=== PATIENT | female | born 1980 | race Caucasian/White ===

== ENCOUNTER 2022-10-12 07:41 | Outpatient (OUT) | payer BC, SELFPAY ==
[2022-10-12 07:52] LABS: Basophils Percent Auto 0.3 % (0.2-2.0); Eosinophils Absolute Auto 0.3 10^3/uL (0.0-0.7); Eosinophils Percent Auto 2.3 % (0.9-7.0); Hematocrit 41.9 % (36.0-48.0); Immature Granulocytes Abs Auto 0.03 10^3/uL (0.00-0.03); Immature Granulocytes Pct Auto 0.3 % (0.0-0.5); Lymphocytes Absolute Auto 3.9 10^3/uL (1.2-3.8); Lymphocytes Percent Auto 34.8 % (20.5-60.0); Mean Corpuscular HGB Conc 33.4 g/dL (29.9-35.2); Mean Corpuscular Hemoglobin 31.5 pg (26.7-34.0); Mean Corpuscular Volume 94.4 fL (81.0-99.0); Monocytes Absolute Auto 0.6 10^3/uL (0.3-0.8); Monocytes Percent Auto 5.2 % (1.7-12.0); Neutrophils Absolute Auto 6.4 10^3/uL (1.4-6.5); Neutrophils Percent Auto 57.1 % (43.0-75.0); Platelet Count 270 10^3/uL (150-450); Red Blood Count 4.44 10^6/uL (4.20-5.40); Red Cell Distribution Width 14.6 % (11.0-15.0); White Blood Count 11.2 10^3/uL (4.0-11.0)
[2022-10-12 09:29] LABS: Alanine Aminotransferase 21 U/L (14-59); Albumin Globulin Ratio 1.1; Albumin Level 3.4 g/dL (3.4-5.0); Alkaline Phosphatase 117 U/L (46-116); Anion Gap 11.1; Aspartate Amino Transferase 15 U/L (15-37); BUN Creatinine Ratio 5.2; Bilirubin Total 0.4 mg/dL (0.2-1.0); Calcium 8.5 mg/dL (8.5-10.1); Chloride 107 mmol/L (98-107); Chol HDL Ratio 3.3; Cholesterol 117 mg/dL (<=200); Estimated GFR (African America >60 (>=60); Estimated GFR (Non-African Ame 51 (>=60); Globulin 3.1 g/dL; Glucose 97 mg/dL (74-106); HDL Cholesterol 36 mg/dL (40-60); Potassium 4.1 mmol/L (3.5-5.1); Sodium 144 mmol/L (136-145); Thyroid Stimulating Hormone 4.068 uIU/mL (0.358-3.740); Total Protein 6.5 g/dL (6.4-8.2); Triglycerides 120 mg/dL (<=150)
== END 2022-10-12 07:42 | disposition home or self-care (01) ==
LOC: LAB 07:42
PROVIDERS: PCP Family Medicine; Visit Provider Family Medicine
DX: I10 Essential (primary) hypertension (principal); E78.5 Hyperlipidemia, unspecified; L65.9 Nonscarring hair loss, unspecified
CPT/HCPCS: 36415; 80053; 80061; 84443; 85025

== ENCOUNTER 2023-01-10 12:55 | Outpatient (OUT) | payer BC, SELFPAY ==
[2023-01-10 13:47] LABS: Thyroid Stimulating Hormone 0.156 uIU/mL (0.358-3.740)
== END 2023-01-10 12:56 | disposition home or self-care (01) ==
LOC: LAB 12:55
PROVIDERS: PCP Family Medicine; Visit Provider Family Medicine
DX: R79.89 Other specified abnormal findings of blood chemistry (principal)
CPT/HCPCS: 36415; 84443

== ENCOUNTER 2023-12-18 09:33 | Outpatient (OUT) | payer BC, SELFPAY ==
--- OUTSIDE RECORDS SUMMARY | 2023-12-17 15:27 | XMS_ITS | CCD ---
Author Organization [facility] Care Team Providers Care Bleaching Machine Operator Name Role Phone MD Mercedes Ashby Primary Care Provider [phone] MD Krishan Rdz Attending Provider JUDY Gordon Attending Provider Mercedes Ashby Unavailable Gloria Gordon Unavailable SYMONE, DR MERCEDES Reilly Admitting Unavailable ASHBY, DR MERCEDES Reilly Primary Care Unavailable ASHBY, DR MERCEDES Reilly Attending Unavailable ONLY, DR SHREYA Blanton Consulting Unavailable SYMONE, DR MERCEDES Reilly Admitting Unavailable ASHBY, DR MERCEDES Reilly Primary Care Unavailable ASHBY, DR MERCEDES Reilly Attending Unavailable ASHBY, DR MERCEDES Reilly Consulting Unavailable Krishan Rdz Unavailable John Araya Unavailable MD Mercedes Ashby Primary Care Provider MD Krishan Rdz Attending Provider [phone] MD Krishan Rdz Admit Provider [phone] MD Mercedes Ashby Primary Care Provider MD Krishan Rdz Attending Provider [phone] Krishan Rdz Admitting UnavailMercedes Levi Primary Care Unavailable Krishan Rdz Attending Unavailabl Krishan Fuller Attending UnavailMercedes Levi Primary Care Unavailable Krishan Rdz Admitting Unavailabl Krishan Fuller Attending UnavailMercedes Levi Primary Care Unavailable Krishan Rdz Admitting Unavailabl Krishan Fuller Attending UnavailMercedes Levi Primary Care Unavailable Krishan Rdz Admitting Unavailabl e LANCE LAGUERRE Attending Unavailable GLORIA GORDON Referring Unavailable JASE ROSARIO Attending Unavailable LANCE LAGUERRE Attending Unavailable Allergies Allergy Classification Reported Allergen(s) Allergy Type Date of Onset Reaction(s) Facility (20 sources) Ketorolac; Translations: [ketorolac] Drug Allergy 03-08-19 16 Itching, Unknown [facility] (14 sources) Penicillins; Translations: [Penicillins] Allergy to substance 07-09-19 13 Difficulty Breathing [facility] (20 sources) traMADol; Translations: [tramadol] Drug Allergy 07-09-19 13 Itching, Unknown [facility] (12 sources) NSAIDS (Non-Steroidal Anti-Inflamma; Translations: [NSAIDS (Non-Steroidal Anti-Inflamma] Allergy to substance 08-23-19 18 Itching [facility] (20 sources) NSAIDs Drug allergy Unknown [email or web address] Other (20 sources) Penicillin G Benzathine; Translations: [penicillin G benzathine] Drug allergy 06-06-19 24 Unknown, Agitated [facility] (20 sources) TORDOL Drug allergy 06-05-19 24 Unknown, [facility] (18 sources) Acetaminophen / traMADol Drug Allergy 03-08-19 16 Unknown [facility] (7 sources) Codeine Drug Allergy 05-23-19 16 Hives [facility] Rep[facility] (2 sources) NSAIDs Drug allergy (disorder) 07-09-19 13 [facility] (2 sources) traMADol Drug Allergy 07-09-19 13 [facility] (1 source) Tromethamine Drug Allergy 07-09-19 13 [facility] (3 sources) Iodine / Sodium Iodide Drug Allergy Unknown [email or web address] Other (16 sources) Penicillin G Drug Allergy 03-08-19 16 Comment:Sherrie verdugo [email or web address] Other (20 sources) Penicillin V Drug Allergy 06-13-19 07 Unknown, [facility] (17 sources) Toradol *ANALGESICS - ANTI-INFLAMMATORY * Propensity to adverse reactions 06-13-19 07 Unknown [email or web address] Other (17 sources) Diclofenac & Diet Manage Prod *ANALGESICS - ANTI-I Propensity to adverse reactions 03-08-19 16 Comment:NSAIDS [email or web address] Other (17 sources) Tylenol with Codeine #3 *ANALGESICS - OPIOID* Propensity to adverse reactions 06-13-19 07 Comment:Tyleno l w/Codeine [facility] [employer] Other (17 sources) Ultram *ANALGESICS - OPIOID* Propensity to adverse reactions 03-08-19 16 Unknown [email or web address] Other (18 sources) Ultracet *ANALGESICS - OPIOID* Propensity to adverse reactions 06-13-19 Unknown, [facility] (20 sources) Iodine; Translations: [iodine] Drug Allergy 06-06-19 Unknown, [facility] (1 source) Ketorolac Drug Allergy Unknown [facility] [employer] Other (1 source) Penicillin G Potassium Drug allergy 03-08-19 16 Comment:Penici llin [facility] [employer] Other (1 source) Penicillin V Potassium Drug allergy 06-13-19 07 Unknown [email or web address] Other (1 source) traMADol Drug Allergy Unknown [email or web address] Other (5 sources) Diclofenac & Diet Manage Prod Allergy to substance 01-11-20 Comment:NSAIDS [facility] (5 sources) Toradol *ANALGESICS - ANTI-INF Allergy to substance 06-05-19 24 [facility] (5 sources) Tylenol with Codeine #3 *ANALG Allergy to substance 01-11-20 Comment:Tyleno l w/Codeine [facility] (8 sources) Shrimp product; Translations: [shrimp] Allergy to substance 06-27-19 nausea, Vomiting [facility] (6 sources) Acetaminophen; Translations: [acetaminophen] Drug Allergy 07-08-19 24 [facility] (1 source) Codeine Drug Allergy 10-03-19 [facility] (1 source) Penicillin Drug Allergy 10-03-19 [facility] Medications Current Medications Medication Drug Class(es) Dates Sig (Normalized) Sig (Original) cloNIDine (20 sources) Central alpha-2 Adrenergic Agonist Start: 04-22-2023 take 1 tablet by mouth once daily at bedtime Clonidine Hcl Active 0 .ROUTE .COMPLEX April 22, 2023 1:19pm TAKE 1 TABLET BY MOUTH EVERYDAY AT BEDTIME Start: 08-22-2017 End: 04-22-2023 take 0.1 mg by mouth once daily at bedtime Clonidine Hcl Discontinued 0.1 MG PO Daily at bedtime August 22, 2017 12:00am April 22, 2023 1:19pm clopidogrel 75 mg oral tablet (20 sources) [id number] Platelet Inhibitor Start: 08-22-2017 take 75 mg by mouth once daily Clopidogrel Active 75 MG PO Daily August 22, 2017 12:00am levothyroxine sodium 0.05 mg oral tablet (20 sources) l-Thyroxine Start: 05-30-2023 End: 08-06-2023 take 1 tablet by mouth in the morning Levothyroxine Active 0 .ROUTE .COMPLEX August 06, 2023 3:42pm TAKE 1 TABLET BY MOUTH IN THE MORNING ON AN EMPTY STOMACH Start: 05-30-2023 End: 05-30-2023 take 50 ug by mouth once daily Levothyroxine Discontin ued 50 MCG PO Daily May 30, 2023 1:02pm May 30, 2023 9:50pm take 1 tablet by phoebe th once daily in the morning Levothyroxine Sodium 50 MCG take 1 tablet by mouth every morning ON AN EMPTY STOMACH for 90 days Active take 1 tablet by phoebe th once daily in the morning Levothyroxine Sodium 50 MCG take 1 tablet by mouth every morning ON AN EMPTY STOMACH for 90 days Active take 1 tablet by phoebe th once daily in the morning Levothyroxine Sodium 75 MCG take 1 tablet by mouth every morning ON AN EMPTY STOMACH for 30 Active lisinopril 20 mg oral tablet (20 sources) Angiotensin Converting Enzyme Inhibitor Start: 07-05-2023 End: 10-02-2023 take 1 tablet by mouth once daily Lisinopril Active 0 .ROUTE .COMPLEX October 02, 2023 8:06am TAKE 1 TABLET BY MOUTH EVERY DAY Start: 08-22-2017 End: 07-05-2023 take 20 mg by mouth once daily Lisinopril Discontinued 20 MG PO Daily August 22, 2017 12:00am July 05, 2023 10:36am 24 hr metoprolol succinate 25 mg extended release oral tablet (20 sources) beta-Adrenergic Braulio Start: 09-10-2023 take 25 mg by mouth once daily Metoprolol Succinate Active 25 MG PO Daily September 10, 2023 12:00am Start: 08-22-2017 End: 09-10-2023 take 50 mg by mouth once daily Metoprolol Tartrate Dis continued 50 MG PO Daily August 22, 2017 12:00am September 10, 2023 9:12am Start: 08-22-2017 take 50 mg by mouth twice ronny y Metoprolol Tartrate Active 50 MG PO Twice daily August 22, 2017 12:00am take 1 tablet by phoebe th once daily Metoprolol Succinate ER 25 MG TAKE 1 TABLET BY MOUTH EVERY DAY for 90 Active 24 hr nicotine 0.875 mg/hr transdermal system (20 sources) Cholinergic Nicotinic Agonist Start: 09-11-2023 apply 1 dose transdermal route once daily Nicotine Active 1 PATCH TRANSDERML Daily September 11, 2023 10:38am Start: 09-02-2023 End: 09-11-2023 apply 1 dose transdermal route once daily Nicotine Discontinued 1 PATCH TRANSDERML Daily September 02, 2023 9:32am September 11, 2023 10:38am Start: 08-06-2023 End: 09-02-2023 apply 1 dose transdermal route once daily, then apply 1 dose transdermal route every twenty-four hours Nicotine (Nicoderm Cq) 21 mg/24 hr patch 24 hour Discontinued 1 PATCH TRANSDERML Daily August 06, 2023 8:41am September 02, 2023 9:33am Start: 06-25-2023 End: 07-16-2023 apply 1 dose transdermal route once daily, then apply 1 dose transdermal route every twenty-four hours Nicotine (Nicoderm Cq) 21 mg/24 hr patch 24 hour Discontinued 1 PATCH TRANSDERML Daily June 25, 2023 12:00am July 16, 2023 9:14am Start: 06-25-2023 End: 08-05-2023 Nicotine (Polacrilex) Discon tinued 4 MG BUCCAL Every 2 hours July 04, 2023 11:33am July 16, 2023 9:14am Start: 10-09-2022 apply 1 dose transde rmal route once daily Nicoderm CQ 14 MG/24HR 1 patch to skin Transdermal Once a day for 30 day(s) Oct, Active oxyCODONE hydrochloride 5 mg oral tablet (10 sources) Opioid Agonist Start: 08-22-2023 End: 09-19-2023 take 5 mg by mouth every eight hours Oxycodone Active 5 MG PO Every 8 hours 90 September 19, 2023 Start: 07-10-2023 End: 08-02-2023 Oxycodone Discontinued 10 MG PO every 6 to 8 hours 15 July 10, 2023 August 02, 2023 2:39pm QUEtiapine 200 mg oral tablet (20 sources) Atypical Antipsychotic Start: 02-16-2013 take 200 mg by mouth once daily at bedtime Quetiapine Active 200 MG PO Daily at bedtime August 22, 2017 12:00am rivaroxaban 20 mg oral tablet (8 sources) Factor Xa Inhibitor Start: 08-01-2023 take 1 tablet by mouth once daily at dinner Rivaroxaban (Xarelto) 20 mg tablet Active 20 MG PO Daily August 01, 2023 12:00am must administer with evening meal Start: 07-10-2023 End: 09-10-2023 take 1 tablet by mouth twice daily at mealtime Rivaroxaban (Xarelto Dvt-Pe Treat 30d Start) 15 mg (42)- 20 mg (9) tablets,dose pack Discontinued 0 PO .COMPLEX July 10, 2023 12:00am September 10, 2023 9:10am take one-15 mg tablet twice daily for 21 days, then one-20 mg tablet once daily; must take with meal/food simvastatin 40 mg oral tablet (20 sources) HMG-CoA Reductase Inhibitor Start: 08-14-2023 take 1 tablet by mouth once daily Simvastatin Active 0 .ROUTE .COMPLEX August 14, 2023 1:01pm TAKE 1 TABLET BY MOUTH EVERY DAY Start: 06-27-2023 End: 08-14-2023 take 40 mg by mouth once daily Simvastatin Discontinue d 40 MG PO Daily June 27, 2023 12:00am August 14, 2023 1:01pm take 1 tablet by phoebe th once daily Simvastatin 40 MG TAKE 1 TABLET BY MOUTH EVERY DAY for 90 Active take 1 tablet by phoebe th every twenty-four hours Zocor 20 MG 1 tablet in the evening Orally Once a day Active tiZANidine 4 mg oral tablet (20 sources) Central alpha-2 Adrenergic Agonist Start: 08-22-2017 take 4 mg by mouth every eight hours Tizanidine Active 4 MG PO Every 8 hours August 22, 2017 12:00am take 1 tablet by phoebe th three times daily as needed tiZANidine HCl 4 MG TAKE 1 TABLET BY PHOEBE TH THREE TIMES A DAY NEEDED for 90 Active Completed/Discontinued Medications Medication Drug Class(es) Dates Sig (Normalized) Sig (Original) acetaminophen 325 mg / oxyCODONE hydrochloride 5 mg oral tablet (20 sources) Opioid Agonist Start: 08-22-2023 End: 08-22-2023 take 1 tablet by mouth every eight hours Oxycodone-Acetamino phen Discontinued 1 TAB PO Every 8 hours 90 August 22, 2023 August 22, 2023 3:44pm Start: 08-08-2023 End: 08-08-2023 take 1 tablet by mouth every eight hours Oxycodone-Acetaminophen Discontinued 1 T AB PO Every 8 hours 90 90 August 08, 2023 August 08, 2023 12:11pm Start: 08-08-2023 End: 08-22-2023 take 1 tablet by mouth every eight hours Oxycodone-Acetaminophen Discontinued 1 T AB PO Every 8 hours 45 15 August 08, 2023 August 22, 2023 1:25pm Start: 08-02-2023 End: 08-22-2023 take 1 tablet by mouth every eight hours Oxycodone-Acetaminophen Discontinued 1 T AB PO Every 8 hours August 02, 2023 12:00am August 08, 2023 12:10pm Start: 07-04-2023 End: 07-10-2023 take 1 tablet by mouth every eight hours Oxycodone-Acetaminophen Discontinued 1 T AB PO Every 8 hours 90 July 04, 2023 July 10, 2023 8:41am Start: 06-06-2023 End: 06-06-2023 take 1 tablet by mouth three times daily Oxycodone-Acetaminophen Discontinued 1 T AB PO Three times daily 90 June 06, 2023 June 06, 2023 11:34am Start: 06-06-2023 End: 07-04-2023 take 1 tablet by mouth three times daily Oxycodone-Acetaminophen Discontinued 1 T AB PO Three times daily 90 June 06, 2023 July 04, 2023 11:45am Start: 08-22-2017 End: 06-06-2023 take 1 tablet by mouth every six hours Oxycodone-Acetaminophen Discontinued 1 T AB PO Every 6 hours 100 May 06, 2023 June 06, 2023 11:26am ALPRAZolam 0.5 mg oral tablet (20 sources) Benzodiazepine Start: 08-22-2017 End: 05-10-2023 Alprazolam Discontinued 0.5 MG PO EVERY 8-10 HOURS 0 April 15, 2019 2:58pm May 10, 2023 6:04pm Start: 06-01-2014 take 1 tablet by phoebe th once daily as needed Xanax 0.5 MG 1 tablet Orally daily as needed for 7 days May, Active atorvastatin 20 mg oral tablet (11 sources) HMG-CoA Reductase Inhibitor Start: 08-22-2017 End: 06-27-2023 take 20 mg by mouth once daily Atorvastatin Discontinued 20 MG PO Daily August 22, 2017 12:00am June 27, 2023 11:26am 12 hr buPROPion hydrochloride 150 mg extended release oral tablet (20 sources) Aminoketone Start: 09-10-2023 End: 09-11-2023 take 150 mg by mouth twice daily Bupropion Hcl Discontinued 150 MG PO Twice daily September 10, 2023 12:00am September 11, 2023 9:59am take 1 tablet by phoebe once daily in the morning, then take 1 tablet by mouth twice daily buPROPion HCl ER (SR) 150 MG TAKE 1 TABL ET BY MOUTH EVERY MORNING FOR 3 DAYS THEN 1 TABLET TWICE DAILY for 30 Active diphenhydrAMINE hydrochloride 50 mg oral capsule (7 sources) Histamine-1 Receptor Antagonist Start: 06-24-2023 End: 07-08-2023 take 50 mg by mouth once Diphenhydramine Hcl Discontinued 50 MG PO Once 1 June 24, 2023 12:00am July 08, 2023 10:33am 1 hour prior to testing DULoxetine 60 mg delayed release oral capsule (20 sources) Serotonin and Norepinephrine Reuptake Inhibitor Start: 04-15-2019 End: 06-06-2023 Duloxetine Discontinued April 15, 2019 1:00am June 06, 2023 11:04am Cymbalta Active folic acid 0.8 mg oral tablet (20 sources) Start: 08-22-2017 End: 04-15-2019 take 0.8 mg by mouth once daily Folic Acid Discontinued 0.8 MG PO Daily August 22, 2017 12:00am April 15, 2019 1:24pm take 1 tablet by phoebe th every twenty-four hours Folic Acid 800 MCG 1 tablet Orally Once a day Active LORazepam 1 mg oral tablet (20 sources) Benzodiazepine Start: 05-10-2023 End: 09-11-2023 take 1 mg by mouth twice daily Lorazepam Discontinued 1 MG PO Twice daily May 10, 2023 6:04pm June 12, 2023 1:34pm Start: 04-13-2023 take 1 tablet by phoebe th twice daily as needed LORazepam 1 MG 1 tab Orally Twice a day prn for 30 days Apr, Active Start: 03-15-2023 take 1 tablet by phoebe th twice daily as needed LORazepam 1 MG 1 tab Orally Twice a day prn for 30 days Mar, Active Start: 02-14-2023 take 1 tablet by phoebe th twice daily as needed LORazepam 1 MG 1 tab Orally Twice a day prn for 30 days Feb, Active Start: 01-16-2023 take 1 tablet by phoebe th twice daily as needed LORazepam 1 MG 1 tab Orally Twice a day prn for 30 days Jan, Active Start: 12-18-2022 take 1 tablet by phoebe th twice daily as needed LORazepam 1 MG TAKE 1 TABLET BY MOUTH TWICE A DAY NEEDED Dec, Active Start: 11-20-2022 take 1 tablet by phoebe th twice daily as needed LORazepam 1 MG TAKE 1 TABLET BY MOUTH TWICE A DAY NEEDED for 30 days Nov, Active Start: 10-22-2022 take 1 tablet by phoebe th twice daily as needed LORazepam 1 MG TAKE 1 TABLET BY MOUTH TWICE A DAY NEEDED for 30 days Oct, Active Start: 09-24-2022 take 1 tablet by phoebe th twice daily as needed LORazepam 1 MG TAKE 1 TABLET BY MOUTH TWICE A DAY NEEDED for Sep, Active Start: 08-27-2022 take 1 tablet by phoebe th twice daily as needed LORazepam 1 MG TAKE 1 TABLET BY MOUTH TWICE A DAY NEEDED for Aug, Active Start: 07-31-2022 take 1 tablet by phoebe twice daily as needed LORazepam 1 MG TAKE 1 TABLET BY MOUTH TWICE A DAY NEEDED for July, Active Start: 07-03-2022 take 1 tablet by phoebe twice daily as needed LORazepam 1 MG TAKE 1 TABLET BY MOUTH TWICE A DAY NEEDED for July, Active Start: 06-06-2022 LORazepam 1 MG 1 Orally Twice a day prn for 30 days Jun, Active Start: 04-09-2022 LORazepam 1 MG 1 Orally Twice a day prn for 30 days May, Active ondansetron 4 mg disintegrating oral tablet (20 sources) Serotonin-3 Receptor Antagonist Start: 07-05-2023 End: 09-11-2023 take 4 mg by mouth three times daily Ondansetron Discontinued 4 MG PO Three times daily July 05, 2023 12:00am September 11, 2023 10:00am Start: 10-09-2022 take 1 tablet by phoebe three times daily as needed Ondansetron 4 MG 1 tablet on the tongue and allow to dissolve Orally tid prn for 5 Oct, Active predniSONE 50 mg oral tablet (7 sources) Start: 06-24-2023 End: 06-27-2023 take 1 dose by mouth once daily Prednisone Discontinued 50 MG PO Daily June 24, 2023 12:00am June 27, 2023 11:28am Three (3) doses; 6 hours apart with last dose ending 30 minutes before testing pregabalin 75 mg oral capsule (11 sources) Start: 08-22-2017 End: 04-15-2019 take 75 mg by mouth twice daily Pregabalin Discontinued 75 MG PO Twice daily August 22, 2017 12:00am April 15, 2019 1:26pm promethazine hydrochloride 25 mg oral tablet (20 sources) Phenothiazine Start: 08-22-2017 End: 06-27-2023 take 25 mg by mouth every six hours Promethazine Discontinued 25 MG PO Every 6 hours August 22, 2017 12:00am June 27, 2023 11:28am Phenergan Active traZODone hydrochloride 50 mg oral tablet (20 sources) Serotonin Reuptake Inhibitor Start: 04-29-2023 End: 09-11-2023 take 1 tablet by mouth at bedtime Trazodone Discontinued 0 .ROUTE .COMPLEX May 30, 2023 9:40pm July 18, 2023 4:10pm take 1 tablet by mouth at bedtime if needed Start: 04-29-2023 End: 04-29-2023 take 50 mg by mouth once daily at bedtime Trazodone Discontinued 50 MG PO Daily at bedtime April 29, 2023 1:00am April 29, 2023 4:49pm Start: 04-05-2023 take 1 tablet by phoebe th every twenty-four hours traZODone HCl 50 MG 1 tablet at bedtime as needed Orally Once a day for 30 day(s) Apr, Active Start: 08-22-2017 End: 06-06-2023 take 200 mg by mouth once daily at bedtime Trazodone Discontinued 200 MG PO Daily at bedtime August 22, 2017 12:00am June 06, 2023 11:05am Start: 08-22-2017 take 200 mg by mouth once daily at bedtime Trazodone Active 200 MG PO Daily at bedtime August 21, 2017 11:00pm traZODone HCl 10 0 MG 2 Orally qhs for 90 days Active Problems Active Problems Problem Classification Problem Date Documented Da te Episodic/Chronic Abdominal pain (1 source) Left lower quadrant pain Episodic Anxiety disorders (20 sources) Generalized anxiety disorder; Translations: [Generalized anxiety disorder] Chronic Aortic and peripheral arterial embolism or thrombosis (9 sources) Iliac artery occlusion; 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] Onset: 07-08-2023 07-10-2023 Chronic Disorders of lipid metabolism (20 sources) Mixed hyperlipidemia; Translations: [Mixed hyperlipidemia] Onset: 03-08-2015 Chronic Essential hypertension (17 sources) Essential hypertension; Translations: [Essential (primary) hypertension] Onset: 03-08-2015 Chronic Lymphadenitis (13 sources) Nonspecific lymphadenitis, unspecified; Translations: [Lymphadenitis] Onset: 11-03-2021 Episodic Menstrual disorders (9 sources) Excessive and frequent menstruation; Translations: [Excessive and frequent menstruation with regular cycle] Onset: 06-12-2006 Chronic Mood disorders (20 sources) Moderate recurrent major depression; Translations: [Major depressive disorder, recurrent, moderate] Chronic Nausea and vomiting (9 sources) Nausea; Translations: [Nausea] Episodic Other circulatory disease (9 sources) Elevated blood-pressure reading without diagnosis of hypertension; Translations: [Elevated blood-pressure reading, without diagnosis of hypertension] Episodic Other connective tissue disease (11 sources) Pain in right leg; Translations: [Pain in limb] Episodic Other connective tissue disease (1 source) Pain in left leg Episodic Other connective tissue disease (9 sources) Pain in right lower limb; Translations: [Pain in right leg] 06-06-2023 Episodic Other gastrointestinal disorders (17 sources) Diarrhea; Translations: [Diarrhea] Episodic Other nervous system disorders (20 sources) Chronic pain; Translations: [Other chronic pain] Chronic Other nervous system disorders (1 source) Other chronic pain Chronic Other nervous system disorders (5 sources) Postoperative pain ; Translations: [Other acute postprocedural pain] 07-10-2023 Episodic Other nervous system disorders (3 sources) Muscle twitch; Translations: [Fasciculation] 08-06-2023 Episodic Other screening for suspected conditions (not mental disorders or infectious disease) (1 source) Other specified abnormal findings of blood chemistry Episodic Peripheral and visceral atherosclerosis (20 sources) Peripheral vascular disease; Translations: [Peripheral vascular disease, unspecified] Onset: 08-05-2017 Chronic Residual codes; unclassified (9 sources) Normal body mass index; Translations: [Body mass index (BMI) 24.0-24.9, adult] Episodic Residual codes; unclassified (9 sources) Body mass index 20-24 - normal; Translations: [Body mass index (BMI) 23.0-23.9, adult] Episodic Spondylosis; intervertebral disc disorders; other back problems (18 sources) Nerve root disorder; Translations: [Radiculopathy, site unspecified] Episodic Substance-related disorders (20 sources) Smoker; Translations: [Nicotine dependence, unspecified, uncomplicated] Chronic Thyroid disorders (10 sources) Hypothyroidism; Translations: [Hypothyroidism, unspecified] Chronic Past or Other Problems Problem Classification Problem Date Documented Date Episodic/Chronic Other nervous system disorders (1 source) Other acute postprocedural pain; Translations: [Other acute postprocedural pain] Onset: 07-08-2023 Episodic Results Test Name Value Interpretation Reference Range Facility US ankle/arm indiceson 10-02 US ankle/arm indices [facility] [address] [place] [address] Ultrasound Report Signed Patient: Cata Koch MR#: [id number] 0 : 1980 Acct:[id number] Age/Sex: 43 / F ADM Date: 10/03/23 Loc: [facility] Room: Type: [facility] Attending Dr: Krishan Rdz MD Ordering Provider: Krishan Rzd MD Date of Service: 10/03/23 US/US ankle/arm indices: I70.213 - Atherosclerosis of [place] arteries of extremiti... Copies to: Krishan Rdz MD LOWER EXTREMITY SEGMENTAL ARTERIAL DOPSCAN (PVR) INDICATION: Iliac artery cutaneous reconstruction or severe PAD. PROCEDURE: Right arm blood pressure is 130 , left is 131 . Pressures at the right ankle are 121 using the posterior tibial artery, and 146 using the dorsalis pedis artery with ankle-brachial index of 0.92 1.11 . Pressures at the left ankle are 160 using the posterior tibial artery, and 157 with ankle-brachial index of 1.22 1.20 . Wave forms by plethysmography are normal. US/US ankle/arm indices IMPRESSION: NO HEMODYNAMICALLY SIGNIFICANT PERIPHERAL VASCULAR OCCLUSIVE DISEASE AT REST IN EITHER LOWER EXTREMITY. Impression dictated by: Krishan Rdz MD10/03/2023 1:05 PM Dictation Location: [place] [address] Tech: Kalani Koo Transcribed By: MERLY 10/03/23 1305 Dictated By: Krishan Rdz MD 10/03/23 1304 Signed By: 10/03/23 1305 Normal [facility] Activated partial thrombopla stin time (aPTT) in platelet poor plasma by coagulation aOrdered By: Krishan Rdz on 07-09-2023 aPTT Coag (PPP) [Time] 28.5 s 25.1-36.5 [facility] Comment on above: A hematocrit value g reater than 55% may lead to inaccurate results in coagulation testing. Patients having hematocrit values >55% require a special collection tube for coagulation studies. Please contact the laboratory at [phone] for redraw instructions. Automated basophil %Ordered By: Krishan Rdz on 07-09-2023 Basophils/100 WBC (Bld) 0.7 % Normal . [facility] Comment on above: Order Comment: Comme nt Every 6 hour while on tPA draw at 0800 per cata rn Performed By: #### P P, FIB-C, CBC #### [address] Automated basophil countOrde red By: Krishan Rdz on 07-09-2023 Basophils (Bld) [#/Vol] 0.1 10*3/uL Normal 0.0-0.2 [facility] Comment on above: Order Comment: Comme nt Every 6 hour while on tPA draw at 0800 per cata rn Result Comment: PERF ORMED BY: [place] [address] PATHOLOGIST [employer] ALLAN ROLDAN M.D. Performed By: #### P P, FIB-C, CBC #### [address] Automated blood monocyte cou ntOrdered By: Krishan Rdz on 07-09-2023 Monocytes (Bld) [#/Vol] 0.6 10*3/uL Normal 0.0-0.8 [facility] Comment on above: Order Comment: Comme nt Every 6 hour while on tPA draw at 0800 per cata rn Performed By: #### P P, FIB-C, CBC #### [address] Automated eosinophil %Ordere d By: Krishan Rdz on 07-09-2023 Eosinophils/100 WBC (Bld) 0.1 % Normal . [facility] Comment on above: Order Comment: Comme nt Every 6 hour while on tPA draw at 0800 per cata rn Performed By: #### P P, FIB-C, CBC #### [address] Automated eosinophil countOr dered By: Krishan Rdz on 07-09-2023 Eosinophils (Bld) [#/Vol] 0.0 10*3/uL Normal 0.0-0.45 [facility] Comment on above: Order Comment: Comme nt Every 6 hour while on tPA draw at 0800 per cata rn Performed By: #### P P, FIB-C, CBC #### [facility] [address] Automated monocyte %Ordered By: Krishan Rdz on 07-09-2023 Monocytes/100 WBC (Bld) 6.1 % Normal . [facility] Comment on above: Order Comment: Comme nt Every 6 hour while on tPA draw at 0800 per cata rn Performed By: #### P P, FIB-C, CBC #### [facility] [address] Automated neutrophil %Ordere d By: Krishan Rdz on 07-09-2023 Neutrophils/100 WBC (Bld) 70.0 % Normal . [facility] Comment on above: Order Comment: Comme nt Every 6 hour while on tPA draw at 0800 per cata rn Performed By: #### P P, FIB-C, CBC #### [address] Basic Metabolic Panelon Creatinine Clr Calc Pharmacy 59.53 Normal [facility] Comment on above: Result Comment: PERF ORMED BY: [place] [address] PATHOLOGIST [employer] ALLAN ROLDAN M.D. Performed By: #### B MP ####[place] [id number] [facility] GFR/1.73 sq M.predicted MDRD (S/P/Bld) [Vol rate/Area] mL/min/{1.73_m2} Normal [facility] Comment on above: Performed By: #### B MP ####[place] [id number] [place] Calcium [Mass/volume] in Ser um or PlasmaOrdered By: Krishan Rdz on 07-09-2023 Calcium [Mass/Vol] 7.2 mg/dL Low 8.6-10.3 [facility] Comment on above: Performed By: #### B MP ####[place] [id number] [place] Carbon dioxide, total [Moles /volume] in Serum or PlasmaOrdered By: Krishan Rdz on 07-09-2023 CO2 [Moles/Vol] 20.0 mmol/L Low 21.0-31.0 [facility] Comment on above: Performed By: #### B MP ####[facility] Chloride [Moles/volume] in S brian or PlasmaOrdered By: Krishan Rdz on 07-09-2023 Chloride [Moles/Vol] 112 mmol/L High 98-107 [facility] Comment on above: Performed By: #### B MP ####[place] [address] Coagulation Profileon 2023 aPTT Coag (Bld) [Time] 28.5 s Normal 25.1-36.5 [facility] Comment on above: Order Comment: Comme nt Every 6 hours while on tPA Result Comment: A he matocrit value greater than 55% may lead to inaccurate results in coagulation testing. Patients having hematocrit values >55% require a special collection tube for coagulation studies. Please contact the laboratory at [phone] for redraw instructions. Performed By: #### P P, FIB-C, CBC #### [address] Complete Blood Count Auto Di ffon 07-09-2023 Mean Corpuscular HGB Conc 34.1 g/dL Normal 32.0-35.0 [facility] Comment on above: Order Comment: Comme nt Every 6 hour while on tPA draw at 0800 per cata rn Performed By: #### P P, FIB-C, CBC #### [address] NRBC% 0.1 /100{WBC} Normal 0-0.5 [facility] Comment on above: Order Comment: Comme nt Every 6 hour while on tPA draw at 0800 per cata rn Performed By: #### P P, FIB-C, CBC #### [address] Creatine Kinaseon 07-09-2023 CK [Catalytic activity/Vol] 43 U/L Normal 30-223 [facility] Comment on above: Result Comment: PERF ORMED BY: [place] [address] PATHOLOGIST [employer] ALLAN ROLDAN M.D. Performed By: #### C K ####[place] [id number] [facility] CK [Catalytic activity/Vol] 32 U/L Normal 30-223 [facility] Comment on above: Performed By: #### F IB-C, CBC, PP #### [address] Creatine kinase [Enzymatic a ctivity/volume] in Serum or PlasmaOrdered By: Krishan Rdz on 07-09-2023 CK [Catalytic activity/Vol] 53 U/L Normal 30-223 [facility] Comment on above: Result Comment: PERF ORMED BY: [place] [address] PATHOLOGIST [employer] ALLAN ROLDAN M.D. Performed By: #### C K ####[place] [id number] [facility] Creatinine [Mass/volume] in Serum or PlasmaOrdered By: Krishan Rdz on 07-09-2023 Creatinine [Mass/Vol] 0.91 mg/dL Normal 0.60-1.20 [facility] Comment on above: Performed By: #### B MP ####[place] [id number] [facility] ECG 12 lead ECGon 07-09-2023 ECG 12 lead ECG [facility] [place] [address] [place] [address] Electrocardiograph Report Signed Patient: Cata Koch MR#: [id number] 0 : 1980 Acct:[id number] Age/Sex: 42 / F ADM Date: 07/08/23 Loc: Room: [address] [place] [address] Type: DIS IN Attending Dr: Krishan Rdz MD Ordering Provider: Krishan Rdz MD Date of Service: 05/ ECG/ECG 12 lead ECG: routine Copies to: Test Reason : Blood Pressure : / mmHG Vent. Rate : 123 BPM Atrial Rate : 123 BPM P-R Int : 130 ms QRS Dur : 060 ms QT Int : 326 ms P-R-T Axes : 046 -20 047 degrees QTc Int : 466 ms Sinus tachycardia When compared with ECG of 15-APR-2019 12:10, Vent. rate has increased BY 62 BPM Confirmed by Jyoti Salazar ([id number]) on 07/22/2023 5:07:30 PM Referred By: Electronically Signed By:Jyoti Salazar Transcribed By: MUS Signed By Jyoti Salazar MD 4 1707 Normal [facility] Erythrocyte distribution wid th [Ratio] by Automated countOrdered By: Krishan Rdz on 07-09-2023 Erythrocyte distribution width (RBC) [Ratio] 18.6 % High 11.9-15.3 [facility] Comment on above: Order Comment: Comme nt Every 6 hour while on tPA draw at 0800 per cata rn Performed By: #### P P, FIB-C, CBC #### [facility] [address] Erythrocytes [#/volume] in B lood by Automated countOrdered By: Krishan Rdz on 07-09-2023 RBC (Bld) [#/Vol] 2.92 10*6/uL Low 3.60-5.00 [facility] Comment on above: Order Comment: Comme nt Every 6 hour while on tPA draw at 0800 per cata rn Performed By: #### P P, FIB-C, CBC #### [facility] [address] [place] [id number] [facility] Fibrinogenon 07-09-2023 Fibrinogen 109 mg/dL Low 200-393 [facility] Comment on above: Order Comment: Comme nt Every 6 hours while on tPA Result Comment: A he matocrit value greater than 55% may lead to inaccurate results in coagulation testing. Patients having hematocrit values >55% require a special collection tube for coagulation studies. Please contact the laboratory at [phone] for redraw instructions. PERFORMED BY: [place] [address] PATHOLOGIST [employer] ALLAN ROLDAN M.D. Performed By: #### P P, FIB-C, CBC #### [facility] [address] [place] [address] Fibrinogen [Mass/volume] in Platelet poor plasma by Coagulation assayOrdered By: Krishan Rdz on 07-09-2023 Fibrinogen Coag (PPP) [Mass/Vol] 109 mg/dL Low 200-393 [facility] Comment on above: A hematocrit value g reater than 55% may lead to inaccurate results in coagulation testing. Patients having hematocrit values >55% require a special collection tube for coagulation studies. Please contact the laboratory at [phone] for redraw instructions. Glucose [Mass/volume] in Ser um or PlasmaOrdered By: Krishan Rdz on 07-09-2023 Glucose [Mass/Vol] 106 mg/dL High 70-100 [facility] Comment on above: ADA recommended refe rence rangeRandom Glucose Reference Range is dependent on time and content of last meal. Glucose of more than 200 mg/dL in a nonstressed, ambulatory subject supports the diagnosis of Diabetes Mellitus. Result Comment: [place] om Glucose Reference Range is dependent on time and content of last meal. Glucose of more than 200 mg/dL in a nonstressed, ambulatory subject supports the diagnosis of Diabetes Mellitus. ADA recommended reference range Performed By: #### B MP ####[facility] [place] [address] Hematocrit [Volume Fraction] of Blood by Automated countOrdered By: Krishan Rdz on 07-09-2023 Hematocrit (Bld) [Volume fraction] 26.0 % Low 34.0-46.4 [facility] Comment on above: Order Comment: Comme nt Every 6 hour while on tPA draw at 0800 per cata jay Performed By: #### P P, FIB-C, CBC #### [facility] [address] [place] [address] Hemoglobin [Mass/volume] in BloodOrdered By: Krishan Rdz on 07-09-2023 Hemoglobin (Bld) [Mass/Vol] 8.9 g/dL Low 11.8-15.4 [facility] Comment on above: Order Comment: Comme nt Every 6 hour while on tPA draw at 0800 per cata jay Performed By: #### P P, FIB-C, CBC #### [facility] [address] Hemoglobin and Hematocriton 07-09-2023 Hematocrit (Bld) [Volume fraction] 22.7 % Low 34.0-46.4 [facility] Comment on above: Result Comment: PERF ORMED BY: [facility] [address] [place] [address] PATHOLOGIST [employer] ALLAN ROLDAN M.D. Performed By: #### H H ####[place] [address] Hemoglobin (Bld) [Mass/Vol] 7.7 g/dL Low 11.8-15.4 [facility] Comment on above: Performed By: #### H H ####[address] INR in Platelet poor plasma by Coagulation assayOrdered By: Krishan Rdz on 07-09-2023 INR Coag (PPP) [Relative time] 1.1 {INR} Normal [facility] Comment on above: INR Therapeutic Rang e A) Pre- and Peroperative OAT started two weeks before surgery. NOT HIP SURGERY: 1.5 - 2.5 HIP SURGERY: 2 - 3B) Primary and secondary prevention of venous THROMBOSIS: 2 - 3C) Active venous thrombosis, pulmonary embolismand prevention of recurrent venous thrombosis: 2 - 3D) Prevention of arterial thromboembolismincluding patients with mechanical heart valves: 3 - 4.5 Order Comment: Comme nt Every 6 hours while on tPA Result Comment: INR Therapeutic Range A) Pre- and Peroperative OAT started two weeks before surgery. NOT HIP SURGERY: 1.5 - 2.5 HIP SURGERY: 2 - 3 B) Primary and secondary prevention of venous THROMBOSIS: 2 - 3 C) Active venous thrombosis, pulmonary embolism and prevention of recurrent venous thrombosis: 2 - 3 D) Prevention of arterial thromboembolism including patients with mechanical heart valves: 3 - 4.5 Performed By: #### P P, FIB-C, CBC #### [facility] [address] Leukocytes [#/volume] correc gregoria for nucleated erythrocytes in Blood by Automated counOrdered By: Krishan Rdz on 07-09-2023 WBC corrected for nucl RBC Auto (Bld) [#/Vol] 10.6 10*3/uL 3.8-11.6 [facility] Leukocytes [#/volume] in Blo od by Automated countOrdered By: Krishan Rdz on 07-09-2023 WBC (Bld) [#/Vol] 10.6 10*3/uL Normal 3.8-11.6 [facility] Comment on above: Order Comment: Comme nt Every 6 hour while on tPA draw at 0800 per cata rn Performed By: #### P P, FIB-C, CBC #### [address] Lymphocytes [#/volume] in Bl ood by Automated countOrdered By: Krishan Rdz on 07-09-2023 Lymphocytes (Bld) [#/Vol] 2.5 10*3/uL Normal 1.00-4.8 [facility] Comment on above: Order Comment: Comme nt Every 6 hour while on tPA draw at 0800 per cata rn Performed By: #### P P, FIB-C, CBC #### [place] [address] [place] Lymphocytes/100 leukocytes i n Blood by Automated countOrdered By: Krishan Rzd on 07-09-2023 Lymphocytes/100 WBC (Bld) 23.1 % Normal . [facility] Comment on above: Order Comment: Comme nt Every 6 hour while on tPA draw at 0800 per acta rn Performed By: #### P P, FIB-C, CBC #### [facility] [address] [place] [address] [place] MCH [Entitic mass] by Automa gregoria countOrdered By: Krishan Rdz on 07-09-2023 MCH (RBC) [Entitic mass] 30.4 pg Normal 24.7-34.3 [facility] Comment on above: Order Comment: Comme nt Every 6 hour while on tPA draw at 0800 per cata rn Performed By: #### P P, FIB-C, CBC #### [facility] [address] [place] [address] MCHC Auto (RBC) [Mass/Vol]Or dered By: Krishan Rdz on 07-09-2023 MCHC (RBC) [Mass/Vol] 34.1 g/dL 32.0-35.0 [facility] MCV [Entitic volume] by Auto mated countOrdered By: Krishan Rdz on 07-09-2023 MCV (RBC) [Entitic vol] 89.1 fL Normal 80-100 [facility] Comment on above: Order Comment: Comme nt Every 6 hour while on tPA draw at 0800 per cata rn Performed By: #### P P, FIB-C, CBC #### [facility] [address] [place] [address] Neutrophils [#/volume] in Bl ood by Automated countOrdered By: Krishan Rdz on 07-09-2023 Neutrophils (Bld) [#/Vol] 7.4 10*3/uL Normal 1.8-7.7 [facility] Comment on above: Order Comment: Comme nt Every 6 hour while on tPA draw at 0800 per cata rn Performed By: #### P P, FIB-C, CBC #### [facility] [address] [place] [address] No Panel InformationOrdered By: Krishan Rdz on 07-09-2023 Estimated GFR (CKD-EPI) > 60.0 mL/Min [facility] Creatinine Clearance (Chem 59.53 [facility] Nucleated erythrocytes [Pres ence] in Blood by Automated countOrdered By: Krishan Rdz on 07-09-2023 Nucleated RBC Auto Ql (Bld) 0.1 /100{WBC} 0-0.5 [facility] Platelet mean volume [Entiti c volume] in Blood by Automated countOrdered By: Krishan Rdz on 07-09-2023 Platelet mean volume (Bld) [Entitic vol] 9.6 fL Normal 6.3-10.7 [facility] Comment on above: Order Comment: Comme nt Every 6 hour while on tPA draw at 0800 per cata rn Performed By: #### P P, FIB-C, CBC #### [facility] [address] Platelets [#/volume] in Bloo d by Automated countOrdered By: Krishan Rdz on 07-09-2023 Platelets (Bld) [#/Vol] 119 10*3/uL Significant change down 150-450 [facility] Comment on above: Delta: 172 on Order Comment: Comme nt Every 6 hour while on tPA draw at 0800 per cata jay Performed By: #### P P, FIB-C, CBC #### [facility] [address] Potassium [Moles/volume] in Serum or PlasmaOrdered By: Krishan Rdz on 07-09-2023 Potassium [Moles/Vol] 4.4 mmol/L Normal 3.5-5.1 [facility] Comment on above: Performed By: #### B MP ####[facility] Prothrombin time (PT)Ordered By: Krishan Rdz on 07-09-2023 PT Coag (PPP) [Time] 13.0 s High 9.0-12.9 [facility] Comment on above: A hematocrit value g reater than 55% may lead to inaccurate results in coagulation testing. Patients having hematocrit values >55% require a special collection tube for coagulation studies. Please contact the laboratory at [phone] for redraw instructions. Order Comment: Comme nt Every 6 hours while on tPA Result Comment: A he matocrit value greater than 55% may lead to inaccurate results in coagulation testing. Patients having hematocrit values >55% require a special collection tube for coagulation studies. Please contact the laboratory at [phone] for redraw instructions. Performed By: #### P P, FIB-C, CBC #### [facility] [address] Serum or plasma anion gap de terminationOrdered By: Krishan Rdz on 07-09-2023 Anion gap [Moles/Vol] 8.4 mmol/L Normal 6.0-15.0 [facility] Comment on above: Performed By: #### B MP ####[place] [address] Sodium [Moles/volume] in Ser um or PlasmaOrdered By: Krishan Rdz on 07-09-2023 Sodium [Moles/Vol] 136 mmol/L Normal 136-145 [facility] Comment on above: Performed By: #### B MP ####[address] Troponin I High Sensitivityo n 07-09-2023 Troponin I High Sensitivity 44.6 pg/mL High 0.0-15.0 [facility] Comment on above: Result Comment: PERF ORMED BY: [facility] [address] [place] [address] PATHOLOGIST [employer] ALLAN ROLDAN M.D. Performed By: #### F IB-C, CBC, PP #### [facility] [address] [place] [address] Troponin I.cardiac [Mass/vol ume] in Serum or Plasma by Detection limit <= 0.01 ng/Ordered By: Krishan Rdz on 07-09-2023 Troponin I.cardiac DL <= 0.01 ng/mL [Mass/Vol] 44.6 pg/mL High 0.0-15.0 [facility] Type and Screenon 07-09-2023 ABO and Rh group Nom (Bld) Blood group O Rh(D) positive Normal [facility] Comment on above: Order Comment: Comme nt Every 6 hour while on tPA Urea nitrogen [Mass/volume] in Serum or PlasmaOrdered By: Krishan Rdz on 07-09-2023 Urea nitrogen [Mass/Vol] 11 mg/dL Normal 7-25 [facility] Comment on above: Performed By: #### B MP ####[place] [address] Blood Urea Nitrogenon 2023 Urea nitrogen [Mass/Vol] 12 mg/dL Normal 7-25 [facility] Comment on above: Performed By: #### B UN, CREAT ####[place] [address] [place] [id number] [facility] Coagulation Profileon 2023 aPTT Coag (Bld) [Time] 32.0 s Normal 25.1-36.5 [facility] Comment on above: Order Comment: Comme nt Every 6 hours while on tPA Result Comment: A he matocrit value greater than 55% may lead to inaccurate results in coagulation testing. Patients having hematocrit values >55% require a special collection tube for coagulation studies. Please contact the laboratory at [phone] for redraw instructions. Performed By: #### P P, FIB-C #### [facility] [address] INR Coag (PPP) [Relative time] 1.3 {INR} Normal [facility] Comment on above: Order Comment: Comme nt Every 6 hours while on tPA Result Comment: INR Therapeutic Range A) Pre- and Peroperative OAT started two weeks before surgery. NOT HIP SURGERY: 1.5 - 2.5 HIP SURGERY: 2 - 3 B) Primary and secondary prevention of venous THROMBOSIS: 2 - 3 C) Active venous thrombosis, pulmonary embolism and prevention of recurrent venous thrombosis: 2 - 3 D) Prevention of arterial thromboembolism including patients with mechanical heart valves: 3 - 4.5 Performed By: #### P P, FIB-C #### [facility] [address] [place] [id number] [facility] PT Coag (PPP) [Time] 14.8 s High 9.0-12.9 [facility] Comment on above: Order Comment: Comme nt Every 6 hours while on tPA Result Comment: A he matocrit value greater than 55% may lead to inaccurate results in coagulation testing. Patients having hematocrit values >55% require a special collection tube for coagulation studies. Please contact the laboratory at [phone] for redraw instructions. Performed By: #### P P, FIB-C #### [facility] [address] [place] [id number] [facility] aPTT Coag (Bld) [Time] 36.1 s Normal 25.1-36.5 [facility] Comment on above: Order Comment: Comme nt Every 6 hours while on tPA Result Comment: A he matocrit value greater than 55% may lead to inaccurate results in coagulation testing. Patients having hematocrit values >55% require a special collection tube for coagulation studies. Please contact the laboratory at [phone] for redraw instructions. Performed By: #### F IB-C, CBC, PP #### [facility] [address] [place] [id number] [facility] INR Coag (PPP) [Relative time] 1.0 {INR} Normal [facility] Comment on above: Order Comment: Comme nt Every 6 hours while on tPA Result Comment: INR Therapeutic Range A) Pre- and Peroperative OAT started two weeks before surgery. NOT HIP SURGERY: 1.5 - 2.5 HIP SURGERY: 2 - 3 B) Primary and secondary prevention of venous THROMBOSIS: 2 - 3 C) Active venous thrombosis, pulmonary embolism and prevention of recurrent venous thrombosis: 2 - 3 D) Prevention of arterial thromboembolism including patients with mechanical heart valves: 3 - 4.5 Performed By: #### F IB-C, CBC, PP #### [facility] [address] [place] [id number] [facility] PT Coag (PPP) [Time] 11.8 s Normal 9.0-12.9 [facility] Comment on above: Order Comment: Comme nt Every 6 hours while on tPA Result Comment: A he matocrit value greater than 55% may lead to inaccurate results in coagulation testing. Patients having hematocrit values >55% require a special collection tube for coagulation studies. Please contact the laboratory at [phone] for redraw instructions. Performed By: #### F IB-C, CBC, PP #### [facility] [address] [place] [id number] [place] aPTT Coag (Bld) [Time] 137.0 s Off scale high 25.1-36.5 [facility] Comment on above: Order Comment: Comme nt Every 6 hours while on tPA Result Comment: Crit ical value result called at 1608 on 07/08/23 A hematocrit value greater than 55% may lead to inaccurate results in coagulation testing. Patients having hematocrit values >55% require a special collection tube for coagulation studies. Please contact the laboratory at [phone] for redraw instructions. Performed By: #### C BC, PP, FIB-C ####[place] [address] INR Coag (PPP) [Relative time] 1.0 {INR} Normal [facility] Comment on above: Order Comment: Comme nt Every 6 hours while on tPA Result Comment: INR Therapeutic Range A) Pre- and Peroperative OAT started two weeks before surgery. NOT HIP SURGERY: 1.5 - 2.5 HIP SURGERY: 2 - 3 B) Primary and secondary prevention of venous THROMBOSIS: 2 - 3 C) Active venous thrombosis, pulmonary embolism and prevention of recurrent venous thrombosis: 2 - 3 D) Prevention of arterial thromboembolism including patients with mechanical heart valves: 3 - 4.5 Performed By: #### C BC, PP, FIB-C ####[address] PT Coag (PPP) [Time] 11.2 s Normal 9.0-12.9 [facility] Comment on above: Order Comment: Comme nt Every 6 hours while on tPA Result Comment: A he matocrit value greater than 55% may lead to inaccurate results in coagulation testing. Patients having hematocrit values >55% require a special collection tube for coagulation studies. Please contact the laboratory at [phone] for redraw instructions. Performed By: #### C BC, PP, FIB-C ####[address] Complete Blood Count Auto Di ffon 07-08-2023 Basophils (Bld) [#/Vol] 0.1 10*3/uL Normal 0.0-0.2 [facility] Comment on above: Order Comment: Comme nt Every 6 hour while on tPA Result Comment: PERF ORMED BY: [place] [address] PATHOLOGIST [employer] ALLAN ROLDAN M.D. Performed By: #### F IB-C, CBC, PP #### [address] Basophils/100 WBC (Bld) 0.6 % Normal . [facility] Comment on above: Order Comment: Comme nt Every 6 hour while on tPA Performed By: #### F IB-C, CBC, PP #### [address] Eosinophils (Bld) [#/Vol] 0.2 10*3/uL Normal 0.0-0.45 [facility] Comment on above: Order Comment: Comme nt Every 6 hour while on tPA Performed By: #### F IB-C, CBC, PP #### [address] Eosinophils/100 WBC (Bld) 0.9 % Normal . [facility] Comment on above: Order Comment: Comme nt Every 6 hour while on tPA Performed By: #### F IB-C, CBC, PP #### [address] Erythrocyte distribution width (RBC) [Ratio] 14.1 % Normal 11.9-15.3 [facility] Comment on above: Order Comment: Comme nt Every 6 hour while on tPA Performed By: #### F IB-C, CBC, PP #### [address] Hematocrit (Bld) [Volume fraction] 35.5 % Normal 34.0-46.4 [facility] Comment on above: Order Comment: Comme nt Every 6 hour while on tPA Performed By: #### F IB-C, CBC, PP #### [address] Hemoglobin (Bld) [Mass/Vol] 11.6 g/dL Low 11.8-15.4 [facility] Comment on above: Order Comment: Comme nt Every 6 hour while on tPA Performed By: #### F IB-C, CBC, PP #### [address] Lymphocytes (Bld) [#/Vol] 3.1 10*3/uL Normal 1.00-4.8 [facility] Comment on above: Order Comment: Comme nt Every 6 hour while on tPA Performed By: #### F IB-C, CBC, PP #### [place] [address] Lymphocytes/100 WBC (Bld) 15.0 % Normal . [facility] Comment on above: Order Comment: Comme nt Every 6 hour while on tPA Performed By: #### F IB-C, CBC, PP #### [address] MCH (RBC) [Entitic mass] 31.7 pg Normal 24.7-34.3 [facility] Comment on above: Order Comment: Comme nt Every 6 hour while on tPA Performed By: #### F IB-C, CBC, PP #### [address] MCV (RBC) [Entitic vol] 97.1 fL Normal 80-100 [facility] Comment on above: Order Comment: Comme nt Every 6 hour while on tPA Performed By: #### F IB-C, CBC, PP #### [address] Mean Corpuscular HGB Conc 32.7 g/dL Normal 32.0-35.0 [facility] Comment on above: Order Comment: Comme nt Every 6 hour while on tPA Performed By: #### F IB-C, CBC, PP #### [address] Monocytes (Bld) [#/Vol] 0.9 10*3/uL High 0.0-0.8 [facility] Comment on above: Order Comment: Comme nt Every 6 hour while on tPA Performed By: #### F IB-C, CBC, PP #### [address] Monocytes/100 WBC (Bld) 4.6 % Normal . [facility] Comment on above: Order Comment: Comme nt Every 6 hour while on tPA Performed By: #### F IB-C, CBC, PP #### [address] Neutrophils (Bld) [#/Vol] 16.1 10*3/uL High 1.8-7.7 [facility] Comment on above: Order Comment: Comme nt Every 6 hour while on tPA Performed By: #### F IB-C, CBC, PP #### [address] Neutrophils/100 WBC (Bld) 78.9 % Normal . [facility] Comment on above: Order Comment: Comme nt Every 6 hour while on tPA Performed By: #### F IB-C, CBC, PP #### [address] NRBC% 0.0 /100{WBC} Normal 0-0.5 [facility] Comment on above: Order Comment: Comme nt Every 6 hour while on tPA Performed By: #### F IB-C, CBC, PP #### [address] Platelet mean volume (Bld) [Entitic vol] 9.6 fL Normal 6.3-10.7 [facility] Comment on above: Order Comment: Comme nt Every 6 hour while on tPA Performed By: #### F IB-C, CBC, PP #### [address] Platelets (Bld) [#/Vol] 232 10*3/uL Normal 150-450 [facility] Comment on above: Order Comment: Comme nt Every 6 hour while on tPA Performed By: #### F IB-C, CBC, PP #### [address] RBC (Bld) [#/Vol] 3.66 10*6/uL Normal 3.60-5.00 [facility] Comment on above: Order Comment: Comme nt Every 6 hour while on tPA Performed By: #### F IB-C, CBC, PP #### [address] WBC (Bld) [#/Vol] 20.4 10*3/uL High 3.8-11.6 [facility] Comment on above: Order Comment: Comme nt Every 6 hour while on tPA Performed By: #### F IB-C, CBC, PP #### [facility] [address] Basophils (Bld) [#/Vol] 0.1 10*3/uL Normal 0.0-0.2 [facility] Comment on above: Order Comment: Comme nt Every 6 hour while on tPA Result Comment: PERF ORMED BY: [place] [address] PATHOLOGIST [employer] ALLAN ROLDAN M.D. Performed By: #### C BC, PP, FIB-C ####[address] Basophils/100 WBC (Bld) 1.0 % Normal . [facility] Comment on above: Order Comment: Comme nt Every 6 hour while on tPA Performed By: #### C BC, PP, FIB-C ####[address] Eosinophils (Bld) [#/Vol] 0.3 10*3/uL Normal 0.0-0.45 [facility] Comment on above: Order Comment: Comme nt Every 6 hour while on tPA Performed By: #### C BC, PP, FIB-C ####[address] Eosinophils/100 WBC (Bld) 2.7 % Normal . [facility] Comment on above: Order Comment: Comme nt Every 6 hour while on tPA Performed By: #### C BC, PP, FIB-C ####[address] Erythrocyte distribution width (RBC) [Ratio] 14.0 % Normal 11.9-15.3 [facility] Comment on above: Order Comment: Comme nt Every 6 hour while on tPA Performed By: #### C BC, PP, FIB-C ####[address] Hematocrit (Bld) [Volume fraction] 38.4 % Normal 34.0-46.4 [facility] Comment on above: Order Comment: Comme nt Every 6 hour while on tPA Performed By: #### C BC, PP, FIB-C ####[address] Hemoglobin (Bld) [Mass/Vol] 12.7 g/dL Normal 11.8-15.4 [facility] Comment on above: Order Comment: Comme nt Every 6 hour while on tPA Performed By: #### C BC, PP, FIB-C ####[address] Lymphocytes (Bld) [#/Vol] 3.3 10*3/uL Normal 1.00-4.8 [facility] Comment on above: Order Comment: Comme nt Every 6 hour while on tPA Performed By: #### C BC, PP, FIB-C ####[address] Lymphocytes/100 WBC (Bld) 29.8 % Normal . [facility] Comment on above: Order Comment: Comme nt Every 6 hour while on tPA Performed By: #### C BC, PP, FIB-C ####[address] MCH (RBC) [Entitic mass] 32.2 pg Normal 24.7-34.3 [facility] Comment on above: Order Comment: Comme nt Every 6 hour while on tPA Performed By: #### C BC, PP, FIB-C ####[address] MCV (RBC) [Entitic vol] 97.2 fL Normal 80-100 [facility] Comment on above: Order Comment: Comme nt Every 6 hour while on tPA Performed By: #### C BC, PP, FIB-C ####[address] Mean Corpuscular HGB Conc 33.1 g/dL Normal 32.0-35.0 [facility] Comment on above: Order Comment: Comme nt Every 6 hour while on tPA Performed By: #### C BC, PP, FIB-C ####[address] Monocytes (Bld) [#/Vol] 0.4 10*3/uL Normal 0.0-0.8 [facility] Comment on above: Order Comment: Comme nt Every 6 hour while on tPA Performed By: #### C BC, PP, FIB-C ####[address] Monocytes/100 WBC (Bld) 3.4 % Normal . [facility] Comment on above: Order Comment: Comme nt Every 6 hour while on tPA Performed By: #### C BC, PP, FIB-C ####[address] Neutrophils (Bld) [#/Vol] 7.1 10*3/uL Normal 1.8-7.7 [facility] Comment on above: Order Comment: Comme nt Every 6 hour while on tPA Performed By: #### C BC, PP, FIB-C ####[address] Neutrophils/100 WBC (Bld) 63.1 % Normal . [facility] Comment on above: Order Comment: Comme nt Every 6 hour while on tPA Performed By: #### C BC, PP, FIB-C ####[address] NRBC% 0.1 /100{WBC} Normal 0-0.5 [facility] Comment on above: Order Comment: Comme nt Every 6 hour while on tPA Performed By: #### C BC, PP, FIB-C ####[address] Platelet mean volume (Bld) [Entitic vol] 10.4 fL Normal 6.3-10.7 [facility] Comment on above: Order Comment: Comme nt Every 6 hour while on tPA Performed By: #### C BC, PP, FIB-C ####[address] Platelets (Bld) [#/Vol] 229 10*3/uL Normal 150-450 [facility] Comment on above: Order Comment: Comme nt Every 6 hour while on tPA Performed By: #### C BC, PP, FIB-C ####[address] RBC (Bld) [#/Vol] 3.95 10*6/uL Normal 3.60-5.00 [facility] Comment on above: Order Comment: Comme nt Every 6 hour while on tPA Performed By: #### C BC, PP, FIB-C ####[address] WBC (Bld) [#/Vol] 11.2 10*3/uL Normal 3.8-11.6 [facility] Comment on above: Order Comment: Comme nt Every 6 hour while on tPA Performed By: #### C BC, PP, FIB-C ####[place] [id number] [facility] Creatinineon 07-08-2023 Creatinine [Mass/Vol] 1.07 mg/dL Normal 0.60-1.20 [facility] Comment on above: Performed By: #### B UN, CREAT ####[place] [id number] [facility] Creatinine Clr Calc Pharmacy 53.07 Normal [facility] Comment on above: Result Comment: PERF ORMED BY: [facility] [address] [facility] [place] [address] PATHOLOGIST [employer] ALLAN ROLDAN M.D. Performed By: #### B UN, CREAT ####[place] [id number] [facility] GFR/1.73 sq M.predicted MDRD (S/P/Bld) [Vol rate/Area] mL/min/{1.73_m2} Normal [facility] Comment on above: Performed By: #### B UN, CREAT ####[place] [id number] [facility] Fibrinogenon 07-08-2023 Fibrinogen 83 mg/dL Low 200-393 [facility] Comment on above: Order Comment: Comme nt Every 6 hours while on tPA Result Comment: A he matocrit value greater than 55% may lead to inaccurate results in coagulation testing. Patients having hematocrit values >55% require a special collection tube for coagulation studies. Please contact the laboratory at [phone] for redraw instructions. PERFORMED BY: [place] [address] PATHOLOGIST [employer] ALLAN ROLDAN M.D. Performed By: #### P P, FIB-C #### [facility] [address] Fibrinogen 180 mg/dL Low 200-393 [facility] Comment on above: Order Comment: Comme nt Every 6 hours while on tPA Result Comment: A he matocrit value greater than 55% may lead to inaccurate results in coagulation testing. Patients having hematocrit values >55% require a special collection tube for coagulation studies. Please contact the laboratory at [phone] for redraw instructions. PERFORMED BY: [place] [address] PATHOLOGIST [employer] ALLAN ROLDAN M.D. Performed By: #### F IB-C, CBC, PP #### [facility] [address] [place] [address] Fibrinogen 315 mg/dL Normal 200-393 [facility] Comment on above: Order Comment: Comme nt Every 6 hours while on tPA Result Comment: A he matocrit value greater than 55% may lead to inaccurate results in coagulation testing. Patients having hematocrit values >55% require a special collection tube for coagulation studies. Please contact the laboratory at [phone] for redraw instructions. PERFORMED BY: [place] [address] PATHOLOGIST [employer] ALLAN ROLDAN M.D. Performed By: #### C BC, PP, FIB-C ####[place] [address] Hemogram CBC Without Diffon 07-08-2023 Erythrocyte distribution width (RBC) [Ratio] 13.8 % Normal 11.9-15.3 [facility] Comment on above: Performed By: #### C BCNO ####[address] Hematocrit (Bld) [Volume fraction] 22.7 % Significant change down 34.0-46.4 [facility] Comment on above: Performed By: #### C BCNO ####[address] Hemoglobin (Bld) [Mass/Vol] 7.4 g/dL Significant change down 11.8-15.4 [facility] Comment on above: Performed By: #### C BCNO ####[address] MCH (RBC) [Entitic mass] 32.0 pg Normal 24.7-34.3 [facility] Comment on above: Performed By: #### C BCNO ####[address] MCV (RBC) [Entitic vol] 97.9 fL Normal 80-100 [facility] Comment on above: Performed By: #### C BCNO ####[address] Mean Corpuscular HGB Conc 32.7 g/dL Normal 32.0-35.0 [facility] Comment on above: Performed By: #### C BCNO ####[place] [id number] [facility] Platelet mean volume (Bld) [Entitic vol] 9.4 fL Normal 6.3-10.7 [facility] Comment on above: Result Comment: PERF ORMED BY: [facility] [address] [place] [address] PATHOLOGIST [employer] ALLAN ROLDAN M.D. Performed By: #### C BCNO ####[address] Platelets (Bld) [#/Vol] 172 10*3/uL Significant change down 150-450 [facility] Comment on above: Performed By: #### C BCNO ####[address] [place] [address] [place] RBC (Bld) [#/Vol] 2.32 10*6/uL Low 3.60-5.00 [facility] Comment on above: Performed By: #### C BCNO ####[facility] [place] [id number] [facility] WBC (Bld) [#/Vol] 14.3 10*3/uL High 3.8-11.6 [facility] Comment on above: Performed By: #### C BCNO ####[place] [address] LeukoReduced RBCon LeukoReduced RBC NOT AVAILABLE Normal [facility] CT angio abd aorta runoffon 06-27-2023 CT angio abd aorta runoff [facility] [place] [address] [place] [address] CT Scan Report Signed Patient: Cata Koch MR#: [id number] 0 : 1980 Acct:[id number] Age/Sex: 42 / F ADM Date: 06/27/23 Loc: CT Room: Type: [facility] Attending Dr: Krishan Rdz MD Copies to: Krishan Rdz MD Ordering Provider: Krishan Rdz MD Date of Service: 06/27/23 CT/CT angio abd aorta runoff: M79.604 - CT angio abd aorta runoff 06/26/2023 11:26 AM SIGNS AND SYMPTOMS: Left leg pain, history of peripheral arterial disease TECHNIQUE: Multidetector ct axial images of the abdomen, pelvis, and lower extremities were obtained with IV contrast. Multiplanar and 3-D reformats were performed and reviewed to further define anatomy and possible pathology. CT was performed with one or more of the following dose reduction techniques: Automated exposure control, adjustment of the mA and/or kV according to patient size, or use of iterative reconstruction technique. COMPARISON: None. FINDINGS: Lower Chest: Mild airspace opacities noted posteriorly. ABDOMEN: Liver: Within normal limits. Bile Ducts: Normal caliber. Gallbladder: Previously removed Pancreas: Within normal limits. Spleen: Within normal limits. Adrenals: Within normal limits. Kidneys: There is right renal cortical atrophy anteriorly which may be vascular in nature. Pelvis: Reproductive Organs: No pelvic masses. Ureters: Within normal limits. Bladder: Within normal limits. Bowel: There is mild thickening of the wall of the descending and sigmoid colon suggesting colitis. There is a normal appendix in the right lower quadrant. Mesenteric Lymph Nodes: No enlarged mesenteric lymph nodes. Peritoneum: No ascites or free air, no fluid collection. Vessels: Atherosclerotic changes are noted in the abdominal aorta. There is evidence of prior stenting of the left common iliac artery. The stent appears to be occluded. There is reconstitution of flow via collaterals within the left external and left internal iliac arteries. There is occlusion of the origin of the right external iliac artery. There is evidence of previous bypass of the occluded right external iliac Retroperitoneum: Within normal limits. Abdominal Wall: There is a fat-containing periumbilical hernia. Bones: Within normal limits. CT/CT angio abd aorta runoff IMPRESSION: There is evidence of previous stent/bypass of the common iliac arteries bilaterally. There is occlusion within the stent on the left with reconstitution of flow in the left external and internal iliac arteries via collateral circulation. There is occlusion of the origin of the right common iliac with reconstitution of flow via bypass. Contrast opacifies the vessels of the lower extremities distal to this symmetrically. There is mild thickening of the wall of the descending and sigmoid colon suggesting colitis. Impression dictated by: Champ Parkinson M.D.06/27/2023 4:06 PM Dictation Location: [place] [address] Transcribed By: [facility] 06/27/23 1606 Dictated By: Champ Parkinson II, MD 06/27/23 1549 Signed By: 06/27/23 1606 Normal [facility] US ankle/arm indiceson 06-25 US ankle/arm indices [facility] [address] [place] [address] Ultrasound Report Signed Patient: Cata Koch MR#: [id number] 0 : 1980 Acct:[id number] Age/Sex: 42 / F ADM Date: 06/20/23 Loc: [facility] Room: Type: [facility] Attending Dr: Krishan Rdz MD Ordering Provider: Krishan Rdz MD Date of Service: 06/20/23 US/US ankle/arm indices: I70.213 Copies to: Krishan Rdz MD LOWER EXTREMITY SEGMENTAL ARTERIAL DOPSCAN (PVR) INDICATION: Follow-up after left iliac stent placement PROCEDURE: Right arm blood pressure is 124 , left is 125 . Pressures of the right leg are 135 at the ankle using the posterior tibial artery and 130 at the ankle using the dorsalis pedis artery with ankle-brachial index of 1.04 1.08 . Pressures of the left leg are 64 at the ankle using the posterior tibial artery and 63 at the ankle using the dorsalis pedis artery with ankle-brachial index of 0.50 0.51 . Wave forms by plethysmography are normal in the right lower extremity and biphasic in the left lower extremity.. US/US ankle/arm indices IMPRESSION: MODERATE PERIPHERAL ARTERIAL DISEASE OF THE LEFT LOWER EXTREMITY AT REST. Impression dictated by: Krishan Rdz MD06/26/2023 3:45 PM Dictation Location: [place] [address] Tech: Kalani Koo Transcribed By: MERLY 06/26/23 1545 Dictated By: Krishan Rdz MD 06/26/23 1543 Signed By: 06/26/23 1545 Normal [facility] US ST HEAD_NECKon 11-07-[address] HEAD_NECK EXAM: US ST HEAD_NEC K HISTORY: Lymphadenitis COMPARISON: None. TECHNIQUE: Grayscale and color ultrasound FINDINGS: Ultrasound of the left neck demonstrates multiple normal size lymph nodes. Some of the lymph nodes have loss of fatty hilum. The largest lymph node measures 1.2 x 0.5 x 1.0 cm IMPRESSION: Multiple normal size lymph nodes, some of the nodes demonstrate loss of the fatty hilum Electronically authenticated by: SHREYA TERRAZAS Date: 2021-11-07 07:10 Normal [facility] Vital Signs Date Time Vital Sign Value Performing Clinician Facility 10-03-2023 11: Body height 157.48 cm MD Mercedes Ashby Work Phone: [facility] 10-03-2023 11: Body temperature 97.9 [degF] MD Mercedes Ashby Work Phone: [facility] 10-03-2023 11:14-0400 Diastolic blood pressure 78 mm[Hg] MD Mercedes Ashby Work Phone: [facility] 10-03-2023 11:14-0400 Heart rate 82 /min MD Mercedes Ashby Work Phone: [facility] 10-03-2023 11:14-0400 SaO2% (BldA) [Mass fraction] 97 % MD Mercedes Ashby Work Phone: [facility] 10-03-2023 11:14-0400 Systolic blood pressure 102 mm[Hg] MD Mercedes Ashby Work Phone: [facility] 09-11-2023 09:53-0400 Body height 157.48 cm MD Mercedes Ashby Work Phone: [facility] 09-11-2023 09:53-0400 Body mass index (BMI) [Ratio] 23.2 kg/m2 MD Mercedes Ashby Work Phone: [facility] 09-11-2023 09:53-0400 Body weight 57.6 kg MD Mercedes Ashby Work Phone: [facility] 09-11-2023 09:53-0400 Diastolic blood pressure 85 mm[Hg] MD Mercedes Ashby Work Phone: [facility] 09-11-2023 09:53-0400 Heart rate 58 /min MD Mercedes Ashby Work Phone: [facility] 09-11-2023 09:53-0400 Systolic blood pressure 128 mm[Hg] MD Mercedes Ashby Work Phone: [facility] 08-01-2023 12:09-0400 Body height 157.48 cm MD Mercedes Ashby Work Phone: [facility] 08-01-2023 12:09-0400 Body mass index (BMI) [Ratio] 22.4 kg/m2 MD Mercedes Ashby Work Phone: [facility] 08-01-2023 12:09-0400 Body temperature 97.8 [degF] MD Mercedes Ashby Work Phone: [facility] 08-01-2023 12:09-0400 Body weight 55.79 kg MD Mercedes Ashby Work Phone: [facility] 08-01-2023 12:09-0400 Diastolic blood pressure 68 mm[Hg] MD Mercedes Ashby Work Phone: [facility] 08-01-2023 12:09-0400 Heart rate 67 /min MD Mercedes Ashby Work Phone: [facility] 08-01-2023 12:09-0400 Respiratory rate 16 /min MD Mercedes Ashby Work Phone: [facility] 08-01-2023 12:09-0400 SaO2% (BldA) [Mass fraction] 98 % MD Mercedes Ashby Work Phone: [facility] 08-01-2023 12:09-0400 Systolic blood pressure 116 mm[Hg] MD Mercedes Ashby Work Phone: [facility] 07-10-2023 07:44-0400 Body temperature 98.4 [degF] MD Mercedes Ashby Work Phone: [facility] 07-10-2023 07:44-0400 Diastolic blood pressure 68 mm[Hg] MD Mercedes Ashby Work Phone: [facility] 07-10-2023 07:44-0400 Heart rate 82 /min MD Mercedes Ashby Work Phone: [facility] 07-10-2023 07:44-0400 Respiratory rate 16 /min MD Mercedes Ashby Work Phone: [facility] 07-10-2023 07:44-0400 SaO2% (BldA) [Mass fraction] 94 % MD Mercedes Ashby Work Phone: [facility] 07-10-2023 07:44-0400 Systolic blood pressure 123 mm[Hg] MD Mercedes Ashby Work Phone: [facility] 07-10-2023 06:00-0400 Body weight 56.8 kg MD Mercedes Ashby Work Phone: [facility] 07-09-2023 17:03-0400 Body height 157 cm MD Mercedes Ashby Work Phone: [facility] 07-09-2023 16:00-0400 Inhaled oxygen flow rate 2 L/min MD Mercedes Ashby Work Phone: [facility] 07-04-2023 10:57-0400 Body height 160.02 cm MD Mercedes Ashby Work Phone: [facility] 07-04-2023 10:57-0400 Body mass index (BMI) [Ratio] 22.3 kg/m2 MD Mercedes Ashby Work Phone: [facility] 07-04-2023 10:57-0400 Body weight 57.15 kg MD Mercedes Ashby Work Phone: [facility] 07-04-2023 10:57-0400 Diastolic blood pressure 76 mm[Hg] MD Mercedes Ashby Work Phone: [facility] 07-04-2023 10:57-0400 Heart rate 67 /min MD Mercedes Ashby Work Phone: [facility] 07-04-2023 10:57-0400 Systolic blood pressure 109 mm[Hg] MD Mercedes Ashby Work Phone: [facility] 06-27-2023 11:32-0400 Body height 160.02 cm MD Mercedes Ashby Work Phone: [facility] 06-27-2023 11:32-0400 Body mass index (BMI) [Ratio] 21.2 kg/m2 MD Mercedes Ashby Work Phone: [facility] 06-27-2023 11:32-0400 Body temperature 98.2 [degF] MD Mercedes Ashby Work Phone: [facility] 06-27-2023 11:32-0400 Body weight 54.43 kg MD Mercedes Ashby Work Phone: [facility] 06-27-2023 11:32-0400 Diastolic blood pressure 70 mm[Hg] MD Mercedes Ashby Work Phone: [facility] 06-27-2023 11:32-0400 Heart rate 100 /min MD Mercedes Ashby Work Phone: [facility] 06-27-2023 11:32-0400 SaO2% (BldA) [Mass fraction] 98 % MD Mercedes Ashby Work Phone: [facility] 06-27-2023 11:32-0400 Systolic blood pressure 102 mm[Hg] MD Mercedes Ashby Work Phone: [facility] 06-20-2023 11:18-0400 Body height 160.02 cm MD Mercedes Ashby Work Phone: [facility] 06-20-2023 11:18-0400 Body mass index (BMI) [Ratio] 21.2 kg/m2 MD Mercedes Ashby Work Phone: [facility] 06-20-2023 11:18-0400 Body temperature 97.6 [degF] MD Mercedes Ashby Work Phone: [facility] 06-20-2023 11:18-0400 Body weight 54.43 kg MD Mercedes Ashby Work Phone: [facility] 06-20-2023 11:18-0400 Diastolic blood pressure 62 mm[Hg] MD Mercedes Ashby Work Phone: [facility] 06-20-2023 11:18-0400 Heart rate 72 /min MD Mercedes Ashby Work Phone: [facility] 06-20-2023 11:18-0400 Respiratory rate 16 /min MD Mercedes Ashby Work Phone: [facility] 06-20-2023 11:18-0400 SaO2% (BldA) [Mass fraction] 94 % MD Mercedes Ashby Work Phone: [facility] 06-20-2023 11:18-0400 Systolic blood pressure 106 mm[Hg] MD Mercedes Ashby Work Phone: [facility] 06-06-2023 10:52-0400 Body height 160.02 cm [facility] 06-06-2023 10:52-0400 Body mass index (BMI) [Ratio] 21.8 kg/m2 [facility] 06-06-2023 10:52-0400 Body weight 55.96 kg [facility] 06-06-2023 10:52-0400 Diastolic blood pressure 79 mm[Hg] [facility] 06-06-2023 10:52-0400 Heart rate 74 /min [facility] 06-06-2023 10:52-0400 Systolic blood pressure 107 mm[Hg] [facility] 01-10-2023 14:15-0500 Body height 160.02 cm Mercedes Ashby Other [facility] [employer] Other 01-10-2023 14:15-0500 Body mass index (BMI) [Ratio] 21.64 kg/m2 Mercedes Ashby Other [employer] [facility] [employer] Other 01-10-2023 14:15-0500 Body weight 55.43 kg Mercedes Ashby Other [facility] [employer] Other 01-10-2023 14:15-0500 Diastolic blood pressure 87 mm[Hg] Mercedes Ashby Other [employer] [facility] [employer] Other 01-10-2023 14:15-0500 Systolic blood pressure 124 mm[Hg] Mercedes Ashby Other [email or web address] Other 05-24-2022 12:45-0400 Body height 160.02 cm Krishan Rdz Other [email or web address] Other 05-24-2022 12:45-0400 Body mass index (BMI) [Ratio] 23.56 kg/m2 Krishan Nettlesranulfo Other [email or web address] Other 05-24-2022 12:45-0400 Body temperature 96.6 [degF] Krishan Rdz Other [email or web address] Other 05-24-2022 12:45-0400 Body weight 60.33 kg Krishan Nettlesranulfo Other [email or web address] Other 05-24-2022 12:45-0400 Diastolic blood pressure 64 mm[Hg] Krishan Nettlesranulfo Other [email or web address] Other 05-24-2022 12:45-0400 SaO2% (BldA) [Mass fraction] 97 % Krishan Nettlesranulfo Other [email or web address] Other 05-24-2022 12:45-0400 Systolic blood pressure 110 mm[Hg] Krishan Rdz Other [email or web address] Other 05-18-2022 11:30-0400 Body height 160.02 cm Mercedes Ashby Other [email or web address] Other 05-18-2022 11:30-0400 Body mass index (BMI) [Ratio] 23.7 kg/m2 Mercedes Ashby Other [email or web address] Other 05-18-2022 11:30-0400 Body weight 60.69 kg Mercedes Ashby Other [email or web address] Other 05-18-2022 11:30-0400 Diastolic blood pressure 70 mm[Hg] Mercedes Ashby Other [email or web address] Other 05-18-2022 11:30-0400 Respiratory rate 12 /min Mercedes Ashby Other [email or web address] Other 05-18-2022 11:30-0400 Systolic blood pressure 116 mm[Hg] Mercedes Ashby Other [email or web address] Other 04-12-2022 11:00-0500 Body height 160.02 cm Gloria Gordon Other [email or web address] Other 04-12-2022 11:00-0500 Body mass index (BMI) [Ratio] 24.8 kg/m2 Gloria Perezjuan jjocelyn Other [email or web address] Other 04-12-2022 11:00-0500 Body temperature 97.8 [degF] Gloria Gordon Other [email or web address] Other 04-12-2022 11:00-0500 Body weight 63.5 kg Gloria Gordon Other [email or web address] Other 04-12-2022 11:00-0500 Diastolic blood pressure 68 mm[Hg] Gloria Perezpolly Other [email or web address] Other 04-12-2022 11:00-0500 SaO2% (BldA) [Mass fraction] 99 % Gloria Perezpolly Other [email or web address] Other 04-12-2022 11:00-0500 Systolic blood pressure 112 mm[Hg] Gloria Perezpolly Other [email or web address] Other Encounters Encounter Date Encounter Type Care Provider Facility Start: 11-05-2023 End: 11-05-2023 ambulatory LANCE LAGUERRE Not Available Start: 10-24-2023 End: 10-24-2023 ambulatory JASE ROSARIO Not Available Start: 10-03-2023 End: 10-03-2023 Patient encounter procedure MD Mercedes Ashby Work Phone: [facility] Physician [facility] Vascular Surgery Work Phone: Start: 10-03-2023 End: 10-03-2023 ambulatory MD Mercedes Ashby Work Phone: [facility] Work Phone: Start: 09-11-2023 End: 09-11-2023 ambulatory MD Mercedes Ashby Work Phone: [facility] Work Phone: Start: 09-11-2023 End: 09-11-2023 Patient encounter procedure MD Mercedes Ashby Work Phone: [facility] Physician [facility] Work Phone: Start: 09-10-2023 End: 09-10-2023 ambulatory LANCE LAGUERRE Not Available Start: 08-02-2023 Non-patient / Non-visit MD Angie Ashby Work Phone: [facility] Physician [facility] Work Phone: Start: 08-01-2023 End: 08-01-2023 ambulatory MD Mercedes Ashby Work Phone: [facility] Work Phone: Start: 08-01-2023 End: 08-01-2023 Patient encounter procedure MD Mercedes Ashby Work Phone: [facility] Physician [facility] Vascular Surgery Work Phone: Start: 07-16-2023 End: 07-16-2023 Patient encounter procedure MD Mercedes Ashby Work Phone: [facility] Physician [facility] Work Phone: Start: 07-08-2023 End: 07-10-2023 Non-patient / Non-visit MD Mercedes Ashby Work Phone: [facility] Physician [facility] Vascular Surgery Work Phone: Start: 07-08-2023 End: 07-10-2023 Evaluation and management of inpatient MD Mercedes Ashby Work Phone: [facility] Work Phone: Start: 07-05-2023 Non-patient / Non-visit MD Angie Ashby Work Phone: [facility] Physician [facility] Work Phone: Start: 07-04-2023 End: 07-04-2023 Patient encounter procedure MD Mercedes Ashby Work Phone: [facility] Physician [facility] Work Phone: Start: 06-27-2023 End: 06-27-2023 Patient encounter procedure MD Mercedes Ashby Work Phone: [facility] Vascular Surgery Work Phone: Start: 06-27-2023 End: 06-27-2023 ambulatory MD Mercedes Ashby Work Phone: [facility] Work Phone: Start: 06-20-2023 End: 06-20-2023 ambulatory MD Mercedes Ashby Work Phone: [facility] Work Phone: Start: 06-20-2023 End: 06-20-2023 Patient encounter procedure MD Mercedes Ashby Work Phone: [facility] Physician [facility] Vascular Surgery Work Phone: Start: 06-06-2023 End: 06-06-2023 ambulatory [facility] Work Phone: Start: 06-06-2023 End: 06-06-2023 Patient encounter procedure [facility] Work Phone: Start: 05-30-2023 Non-patient / Non-visit [facility] Work Phone: Start: 05-10-2023 Non-patient / Non-visit [facility] Work Phone: Start: 04-29-2023 Non-patient / Non-visit [facility] Physician [facility] Work Phone: Start: 04-12-2023 End: 04-12-2023 ambulatory Mercedes Ashby Other [email or web address] Other Start: 04-12-2023 Telephone encounter Mercedes Symone [facility] Start: 03-15-2023 End: 03-15-2023 ambulatory Mercedes Ashby Other [email or web address] Other Start: 03-15-2023 Telephone encounter Mercedes Symone [facility] Start: 03-08-2023 End: 03-08-2023 ambulatory Mercedes Ashby Other [email or web address] Other Start: 03-08-2023 Telephone encounter Mercedes Ashby [facility] Start: 02-14-2023 End: 02-14-2023 ambulatory Mercedes Ashby Other [email or web address] Other Start: 02-14-2023 Telephone encounter Mercedes Ashby [facility] Start: 02-07-2023 End: 02-07-2023 ambulatory Mercedes Ashby Other [email or web address] Other Start: 02-07-2023 Telephone encounter Mercedes Ashby [facility] Start: 02-04-2023 End: 02-04-2023 ambulatory Mercedes Ashby Other [email or web address] Other Start: 02-04-2023 Telephone encounter Mercedes Ashby [facility] Start: 01-16-2023 End: 01-16-2023 ambulatory Mercedes Ashby Other [email or web address] Other Start: 01-16-2023 Telephone encounter Mercedes Ashby [facility] Start: 01-10-2023 End: 01-10-2023 ambulatory Mercedes Ashby Other [email or web address] Other Start: 01-10-2023 Office outpatient vi sit 15 minutes Mercedes Ashby [facility] Start: 12-24-2022 End: 12-24-2022 ambulatory Mercedes Ashby Other [email or web address] Other Start: 12-24-2022 Telephone encounter Mercedes Ashby [facility] Start: 12-17-2022 End: 12-17-2022 ambulatory Mercedes Ashby Other [email or web address] Other Start: 12-17-2022 Telephone encounter Mercedes Ashby [facility] Start: 12-14-2022 End: 12-14-2022 ambulatory Mercedes Ashby Other [email or web address] Other Start: 12-14-2022 Telephone encounter Mercedes Ashby [facility] Start: 12-10-2022 End: 12-10-2022 ambulatory Mercedes Ashby Other [email or web address] Other Start: 12-10-2022 Telephone encounter Mercedes Ashby [facility] Start: 11-19-2022 End: 11-19-2022 ambulatory Mercedes Ashby Other [email or web address] Other Start: 11-19-2022 Telephone encounter Mercedes Ashby [facility] Start: 11-15-2022 End: 11-15-2022 ambulatory Mercedes Ashby Other [email or web address] Other Start: 11-15-2022 Telephone encounter Mercedes Ashby [facility] Start: 10-22-2022 End: 10-22-2022 ambulatory Mercedes Ashby Other [email or web address] Other Start: 10-22-2022 Telephone encounter Mercedes Ashby [facility] Start: 10-18-2022 End: 10-18-2022 ambulatory Mercedes Ashby Other [email or web address] Other Start: 10-18-2022 Telephone encounter Mercedes Ashby [facility] Start: 09-20-2022 End: 09-20-2022 ambulatory Mercedes Ashby Other [email or web address] Other Start: 09-20-2022 Telephone encounter Mercedes Ashby [facility] Start: 09-19-2022 End: 09-19-2022 ambulatory Mercedes Ashby Other [email or web address] Other Start: 09-19-2022 Telephone encounter Mercedes Ashby [facility] Start: 08-27-2022 End: 08-27-2022 ambulatory Mercedes Ashby Other [email or web address] Other Start: 08-27-2022 Telephone encounter Mercedes Ashby [facility] Start: 08-21-2022 End: 08-21-2022 ambulatory Mercedes Sahby Other [email or web address] Other Start: 08-21-2022 Telephone encounter Mercedes Ashby [facility] Start: 07-31-2022 End: 07-31-2022 ambulatory Mercedes Ashby Other [email or web address] Other Start: 07-31-2022 Telephone encounter Mercedes Ashby [facility] Start: 07-03-2022 End: 07-03-2022 ambulatory Mercedes Ashby Other [email or web address] Other Start: 07-03-2022 Telephone encounter Mercedes Ashby [facility] Start: 06-27-2022 End: 06-27-2022 ambulatory Mercedes Ashby Other [email or web address] Other Start: 06-27-2022 Telephone encounter Mercedes Ashby [facility] Start: 06-05-2022 End: 06-05-2022 ambulatory Mercedes Ashby Other [email or web address] Other Start: 06-05-2022 Telephone encounter Mercedes Ashby [facility] Start: 05-31-2022 End: 05-31-2022 ambulatory Mercedes Ashby Other [email or web address] Other Start: 05-31-2022 Telephone encounter Mercedes Ashby [facility] Start: 05-24-2022 End: 05-24-2022 ambulatory Krishan Rdz Other [email or web address] Other Start: 05-24-2022 Office outpatient vi sit 15 minutes Krishan Rdz [facility] Vascular Surgery Start: 05-23-[address] MERCEDES ASHBY Facil ity:H1 Start: 05-18-2022 End: 05-18-2022 ambulatory Mercedes Ashby Other [email or web address] Other Start: 05-18-2022 Encounter for genera l adult medical examination without abnormal findings Mercedes Ashby [facility] Start: 05-18-2022 Periodic preventive med est patient 40-64yrs Mercedes Ashby [facility] Start: 05-07-2022 End: 05-07-2022 ambulatory Mercedes Ashby Other [email or web address] Other Start: 05-07-2022 Telephone encounter Mercedes Ashby [facility] Start: 05-02-2022 End: 05-02-2022 ambulatory Mercedes Ashby Other [email or web address] Other Start: 05-02-2022 Telephone encounter Mercedes Ashby [facility] Start: 04-26-2022 End: 04-26-2022 ambulatory MD Merceeds Ashby Work Phone: [facility] Work Phone: Start: 04-26-2022 End: 04-26-2022 Patient encounter procedure MD Mercedes Ashby Work Phone: [facility] [place] Work Phone: Start: 04-12-2022 End: 04-12-2022 ambulatory Gloria Gordon Other [email or web address] Other Start: 04-12-2022 [facility] visit new patient Gloria banks [facility] Vascular Surgery Start: 04-12-2022 End: 04-12-2022 Patient encounter procedure MD Mercedes Ashby Work Phone: [facility] Start: 04-09-2022 End: 04-09-2022 ambulatory Mercedes Ashby Other [email or web address] Other Start: 04-09-2022 Telephone encounter Mercedes Ashby [facility] Start: 04-05-2022 End: 04-05-2022 ambulatory Mercedes Ashby Other [employer] Other Start: 04-05-2022 Telephone encounter Mercedes Ashby [facility] Start: 12-20-2021 Preoperative cardiovascular examination Mercedes Ashby Other [email or web address] Other Start: 11-03-2021 End: 11-04-[address] SHREYA TERRAZAS Facility: Procedures Date Procedure Procedure Detail Performing Clinician Start: 07-09-2023 Angiography MD Mercedes Ashby Work Phone: Start: 07-09-2023 Antibody screen Krishan Rdz Comment on above: Order Comment: Comme nt Every 6 hour while on tPA Result Comment: PERF ORMED BY: [facility] [address] [place] [address] PATHOLOGIST [employer] ALLAN ROLDAN M.D. Start: 07-08-2023 IR Angiogram w/TLA/S tent Left Leg (Left) MD Mercedes Ashby Work Phone: Start: 06-27-2023 CT of abdominal aort a with contrast MD Mercedes Ashby Work Phone: Start: 06-20-2023 Ankle brachial press ure index MD Mercedes Ashby Work Phone: Start: 02-23-2023 Ultrasonography of limb MD Mercedes Ashby Work Phone: Start: 04-12-2022 Ankle brachial press ure index MD Mercedes Ashby Work Phone: Screening for malign ant neoplasm of breast Mercedes Ashby Other Plan of Treatment Date Care Activity Detail Author Start: 08-06-2023 Patient referral [facility] Work Phone: Start: 07-10-2023 [facility] Start: 07-09-2023 Hospital admission [facility] Start: 07-09-2023 [facility] Start: 07-08-2023 Dilation of Abdominal Aorta with Intraluminal Device, Percutaneous Approach Dilation of Abdominal Aorta with Intraluminal Device, Percutaneous Approach [facility] Start: 07-08-2023 Dilation of Left Common Iliac Artery with Intraluminal Device, Percutaneous Approach Dilation of Left Common Iliac Artery with Intraluminal Device, Percutaneous Approach [facility] Start: 07-08-2023 Dilation of Left External Iliac Artery with Intraluminal Device, Percutaneous Approach Dilation of Left External Iliac Artery with Intraluminal Device, Percutaneous Approach [facility] Start: 07-08-2023 Extirpation of Matter from Abdominal Aorta, Percutaneous Approach Extirpation of Matter from Abdominal Aorta, Percutaneous Approach [facility] Start: 07-08-2023 Extirpation of Matter from Left Common Iliac Artery, Percutaneous Approach Extirpation of Matter from Left Common Iliac Artery, Percutaneous Approach [facility] Start: 07-08-2023 Extirpation of Matter from Left External Iliac Artery, Percutaneous Approach Extirpation of Matter from Left External Iliac Artery, Percutaneous Approach [facility] Start: 07-08-2023 Fragmentation of Left Common Iliac Artery, Percutaneous Approach, Ultrasonic Fragmentation of Left Common Iliac Artery, Percutaneous Approach, Ultrasonic [facility] Start: 07-08-2023 Fragmentation of Left External Iliac Artery, Percutaneous Approach, Ultrasonic Fragmentation of Left External Iliac Artery, Percutaneous Approach, Ultrasonic [facility] Start: 07-08-2023 Introduction of Other Thrombolytic into Peripheral Artery, Percutaneous Approach Introduction of Other Thrombolytic into Peripheral Artery, Percutaneous Approach [facility] Start: 06-27-2023 CT of abdominal aorta with contrast CT angio abd aorta runoff [facility] Start: 06-27-2023 CT Unspecified body region [facility] Start: 06-20-2023 Ankle brachial pressure index [facility] Start: 04-26-2022 Duplex scan of lower limb arteries US arterial duplex LE LT [facility] Start: 04-26-2022 US Lower extremity artery - left [facility] Ankle brachial press ure index [facility] CT Unspecified body region [facility] Patient Education Peripheral art stacey disease and claudication Quitting Smoking for Older Adults Smoking: Not Just Harmful to Your Lungs and Heart Peripheral Vascular (Arterial) Disease (DC) Peripheral Vascular Stenting (DC) Quitting smoking Bleeding Precautions Going Home on Blood Thinners Wound Care for Arterial Puncture (DC) Vaping Know your Meds [facility] Work Phone: Patient referral [facility] Work Phone: [facility] Immunizations Immunization Date Immunization Notes Care Provider Fa cility 10-31-2020 COVID-19 Vaccine Pfizer - Documentation Purposes Only Mercedes Ashby Other [facility] 10-11-2020 COVID-19 Vaccine Pfizer - Documentation Purposes Only Mercedes Ashby Other [facility] NEGATED: Highlighted row has not occurred!04-27-2015 influenza, seasonal, injectable Patient Objection Mercedes Ashby Other [email or web address] Other Payers Date Payer Category Payer Self-pay [id number] 1980 Unknown [id number] .[id number] [id number] 1980 Unknown [id number] 1978 Unknown [id number] .[id number] [id number] 1978 Unknown [id number] .[id number] 1978 Unknown [id number] 1959 Self-pay [id number] 1961 Unknown [id number] Unknown [id number] Unknown [id number] Social History Date Type Detail Facility Tobacco smoking status [facility] Unknown if ever smoked [facility] Work Phone: Start: 1980 Sex Assigned At Female F [facility] Sex Assigned At Sex Assigned At Bir th [facility] [employer] Other Start: 01-22-2018 Tobacco smoking status [facility] Smoker (finding) [facility] Start: 06-27-2023 End: 07-08-2023 Tobacco smoking status [facility] Ex-smoker (finding) [facility] Medical Equipment Procedure Code Equipment Code Equipment Origin al Text Equipment Identifier Dates Aortogram, abdominal, with bilateral lower extremity runoff IR STENT SMART 10 X 30 120CM FDA Start: 08-22-2017 Aortogram, abdominal, with bilateral lower extremity runoff IR STENT SMART 9 X 30 120 CM FDA Start: 08-22-2017 Aortogram, abdominal, with bilateral lower extremity runoff [id number] FDA Start: 04-15-2019 Aortogram, abdominal, with bilateral lower extremity runoff IR STENT SMART 10 X 30 120CM FDA Start: 08-22-2017 Aortogram, abdominal, with bilateral lower extremity runoff IR STENT SMART 9 X 30 120 CM FDA Start: 08-22-2017 Aortogram, abdominal, with bilateral lower extremity runoff [id number] FDA Start: 04-15-2019 Aortogram, abdominal, with bilateral lower extremity runoff IR STENT SMART 10 X 30 120CM FDA Start: 08-22-2017 Aortogram, abdominal, with bilateral lower extremity runoff IR STENT SMART 9 X 30 120 CM FDA Start: 08-22-2017 Aortogram, abdominal, with bilateral lower extremity runoff [id number] FDA Start: 04-15-2019 Aortogram, abdominal, with bilateral lower extremity runoff IR STENT SMART 10 X 30 120CM FDA Start: 08-22-2017 Aortogram, abdominal, with bilateral lower extremity runoff IR STENT SMART 9 X 30 120 CM FDA Start: 08-22-2017 Aortogram, abdominal, with bilateral lower extremity runoff [id number] FDA Start: 04-15-2019 Aortogram, abdominal, with bilateral lower extremity runoff IR STENT SMART 10 X 30 120CM FDA Start: 08-22-2017 Aortogram, abdominal, with bilateral lower extremity runoff IR STENT SMART 9 X 30 120 CM FDA Start: 08-22-2017 Aortogram, abdominal, with bilateral lower extremity runoff [id number] FDA Start: 04-15-2019 Aortogram, abdominal, with bilateral lower extremity runoff IR STENT SMART 10 X 30 120CM FDA Start: 08-22-2017 Aortogram, abdominal, with bilateral lower extremity runoff IR STENT SMART 9 X 30 120 CM FDA Start: 08-22-2017 Aortogram, abdominal, with bilateral lower extremity runoff [id number] FDA Start: 04-15-2019 Aortogram, abdominal, with bilateral lower extremity runoff IR STENT SMART 10 X 30 120CM FDA Start: 08-22-2017 Aortogram, abdominal, with bilateral lower extremity runoff IR STENT SMART 9 X 30 120 CM FDA Start: 08-22-2017 Aortogram, abdominal, with bilateral lower extremity runoff [id number] FDA Start: 04-15-2019 Aortogram, abdominal, with bilateral lower extremity runoff IR STENT SMART 10 X 30 120CM FDA Start: 08-22-2017 Aortogram, abdominal, with bilateral lower extremity runoff IR STENT SMART 9 X 30 120 CM FDA Start: 08-22-2017 Aortogram, abdominal, with bilateral lower extremity runoff [id number] FDA Start: 04-15-2019 Aortogram, abdominal, with bilateral lower extremity runoff IR STENT SMART 10 X 30 120CM FDA Start: 08-22-2017 Aortogram, abdominal, with bilateral lower extremity runoff IR STENT SMART 9 X 30 120 CM FDA Start: 08-22-2017 Aortogram, abdominal, with bilateral lower extremity runoff [id number] FDA Start: 04-15-2019 Aortogram, abdominal, with bilateral lower extremity runoff IR STENT SMART 10 X 30 120CM FDA Start: 08-22-2017 Aortogram, abdominal, with bilateral lower extremity runoff IR STENT SMART 9 X 30 120 CM FDA Start: 08-22-2017 Aortogram, abdominal, with bilateral lower extremity runoff [id number] FDA Start: 04-15-2019 Aortogram, abdominal, with bilateral lower extremity runoff IR STENT SMART 10 X 30 120CM FDA Start: 08-22-2017 Aortogram, abdominal, with bilateral lower extremity runoff IR STENT SMART 9 X 30 120 CM FDA Start: 08-22-2017 Aortogram, abdominal, with bilateral lower extremity runoff [id number] FDA Start: 04-15-2019 Angiogram, for thrombolysis follow-up Multiple peripheral artery stent, bare-metal ()[id number] FDA Start: 07-09-2023 Angiogram, for thrombolysis follow-up Multiple peripheral artery stent, bare-metal ()[id number] FDA Start: 07-09-2023 Goals Date Patient Goal Desired Activity /State Functional Status Date Assessment Result Facility 07-08-2023 Functional status Patient at Baseline [facility] Work Phone: Mental Status Date Assessment Result Facility 07-08-2023 Cognitive function Cognitive Sta tus Patient at Baseline [facility] Work Phone: Clinical Notes 04-12-2022 to 07-09-2023 Note Date & Type Note Facility 07-09-2023 Progress note Note Date/Time July 09, 2023 7:57am [facility] [address] [place] [address] Vascular Surgery Progress Note Signed Patient: Cata Koch MR#: [id number] : 1980 Acct:[id number] Age/Sex: 42 / F Adm Date: 4 Loc: Room: [address] [place] [address] Type: REG SDC Attending Dr: Krishan Rdz MD Copies to: ~ Date of Service: 07/09/2023 Subjective Subjective Interval history: Patient was doing much better this morning. Her vitals were stable. Her left foot was warm. She had some mild back pain Exam Physical Exam Vital Signs: Temp Pulse Resp BP Pulse Ox O2 Del Method 98.3 F 81 20 111/74 98 Room Air 07/09/23 06:56 07/09/23 06:56 07/09/23 06:56 07/09/23 06:56 07/09/23 06:56 07/09/23 05:00 Const Other: No hematoma was present in the left groin. Left foot was warm. The tPA and heparin had been shut off overnight. The patient did receive 2 units of blood overnight. Objective Labs 07/09/23 03:54 07/09/23 03:54 Other Labs: Laboratory Results - last 24 hr 07/08/23 07/08/23 07/08/23 10:22 13:37 18:31 Corrected WBC 11.2 20.4 H Uncorrected WBC Count 11.2 20.4 H RBC 3.95 3.66 Hgb 12.7 11.6 L Hct 38.4 35.5 MCV 97.2 97.1 MCH 32.2 31.7 MCHC 33.1 32.7 RDW 14.0 14.1 Plt Count 229 232 MPV 10.4 9.6 Neut % (Auto) 63.1 78.9 Lymph % (Auto) 29.8 15.0 Kinney % (Auto) 3.4 4.6 Eos % (Auto) 2.7 0.9 Baso % (Auto) 1.0 0.6 Nucleat RBC Rel Count 0.1 0.0 Neut # (Auto) 7.1 16.1 H Lymph # (Auto) 3.3 3.1 Kinney # (Auto) 0.4 0.9 H Eos # (Auto) 0.3 0.2 Baso # (Auto) 0.1 0.1 PT 11.2 11.8 INR 1.0 1.0 APTT 137.0 H* 36.1 Fibrinogen 315 180 L PHA Creatinine Clear 53.07 Sodium Potassium Chloride Carbon Dioxide Anion Gap BUN 12 Creatinine 1.07 Est GFR (CKD-EPI) > 60.0 Glucose Calcium Total Creatine Kinase Troponin I High Sens Blood Type Antibody Screen Crossmatch (AHG) 07/08/23 07/08/23 07/09/23 23:45 23:46 00:55 Corrected WBC 14.3 H Uncorrected WBC Count RBC 2.32 L Hgb 7.4 L D Hct 22.7 L D MCV 97.9 MCH 32.0 MCHC 32.7 RDW 13.8 Plt Count 172 D MPV 9.4 Neut % (Auto) Lymph % (Auto) Kinney % (Auto) Eos % (Auto) Baso % (Auto) Nucleat RBC Rel Count Neut # (Auto) Lymph # (Auto) Kinney # (Auto) Eos # (Auto) Baso # (Auto) PT 14.8 H INR 1.3 APTT 32.0 Fibrinogen 83 L PHA Creatinine Clear Sodium Potassium Chloride Carbon Dioxide Anion Gap BUN Creatinine Est GFR (CKD-EPI) Glucose Calcium Total Creatine Kinase 32 Troponin I High Sens 44.6 H Blood Type O Positive Antibody Screen Negative Crossmatch ([facility]) See Detail 07/09/23 07/09/23 03:54 06:33 Corrected WBC Uncorrected WBC Count RBC Hgb 7.7 L Hct 22.7 L MCV MCH MCHC RDW Plt Count MPV Neut % (Auto) Lymph % (Auto) Kinney % (Auto) Eos % (Auto) Baso % (Auto) Nucleat RBC Rel Count Neut # (Auto) Lymph # (Auto) Kinney # (Auto) Eos # (Auto) Baso # (Auto) PT INR APTT Fibrinogen PHA Creatinine Clear 59.53 Sodium 136 Potassium 4.4 Chloride 112 H Carbon Dioxide 20.0 L Anion Gap 8.4 BUN 11 Creatinine 0.91 Est GFR (CKD-EPI) > 60.0 Glucose 106 H Calcium 7.2 L Total Creatine Kinase 43 53 Troponin I High Sens Blood Type Antibody Screen Crossmatch ([facility]) A&P - Vascular Assessment/Plan (1) PAD (peripheral artery disease): Plan I had a lengthy discussion with this patient today. We discussed the risks and benefits as well as medical surgical tenderness. The plan was to be to take herback into a T. Recheck today with angioplasty and stenting of the occluded leftiliac system. We reviewed the risks and benefits as well as medical surgical tenderness. We also discussed potential complications such as amputation myocardial infarction infection need for additional surgeries and . We have discussed this previously in the office setting. I reiterated this today and the patient wishes to proceed. Consent was obtained again. The plan today will be a tPA recheck with angioplasty of the left external and common iliac arteries and stent placement. Hopefully we can close the groin percutaneously if not patient will need an exploration of the left groin with closure. Patientconsents to this. Documented By: Krishan Rdz MD 07/09/23 6271 Signed By: <Electronically signed by Krishan Rdz MD> 07/09/23 0757 [facility] Work Phone: 1(931) 350-655305-07-2024 Progress note Author Krishan Rdz [facility] July 09, 2023 7:55am Note Date/Time July 09, 2023 7:55am [facility] [address] [place] [address] Vascular Surgery Progress Note Signed Patient: Cata Koch MR#: [id number] : 1980 Acct:[id number] Age/Sex: 42 / F Adm Date: 4 Loc: Room: [address] [place] [address] Type: REG SDC Attending Dr: Krishan Rdz MD Copies to: ~ Date of Service: 07/09/2023 Subjective Subjective Interval history: I came in to see the patient at 10:30 at night due to concerns for expanding hematoma and bleeding from the left groin during tPA and heparin administration. Patient's blood pressure was 90/50 and her heart rate was 144. She was awake alert and oriented no distress. Following commands and can move all 4 extremities. Her breathing was stable. Exam Physical Exam Vital Signs: Temp Pulse Resp BP Pulse Ox O2 Del Method 98.3 F 81 20 111/74 98 Room Air 07/09/23 06:56 07/09/23 06:56 07/09/23 06:56 07/09/23 06:56 07/09/23 06:56 07/09/23 05:00 Const Other: The patient was appropriate. She was not tachypneic. Her HEENT is also atraumatic breath sounds were distant she was sinus tachycardia at 140. She didhave some oozing around the sheath in the left groin. There is no identifiable hematoma whatsoever in the left groin. There was oozing and bleeding around thesheath site. Her left foot was warm. Objective Labs 07/09/23 03:54 07/09/23 03:54 Other Labs: Laboratory Results - last 24 hr 07/08/23 07/08/23 07/08/23 10:22 13:37 18:31 Corrected WBC 11.2 20.4 H Uncorrected WBC Count 11.2 20.4 H RBC 3.95 3.66 Hgb 12.7 11.6 L Hct 38.4 35.5 MCV 97.2 97.1 MCH 32.2 31.7 MCHC 33.1 32.7 RDW 14.0 14.1 Plt Count 229 232 MPV 10.4 9.6 Neut % (Auto) 63.1 78.9 Lymph % (Auto) 29.8 15.0 Kinney % (Auto) 3.4 4.6 Eos % (Auto) 2.7 0.9 Baso % (Auto) 1.0 0.6 Nucleat RBC Rel Count 0.1 0.0 Neut # (Auto) 7.1 16.1 H Lymph # (Auto) 3.3 3.1 Kinney # (Auto) 0.4 0.9 H Eos # (Auto) 0.3 0.2 Baso # (Auto) 0.1 0.1 PT 11.2 11.8 INR 1.0 1.0 APTT 137.0 H* 36.1 Fibrinogen 315 180 L PHA Creatinine Clear 53.07 Sodium Potassium Chloride Carbon Dioxide Anion Gap BUN 12 Creatinine 1.07 Est GFR (CKD-EPI) > 60.0 Glucose Calcium Total Creatine Kinase Troponin I High Sens Blood Type Antibody Screen Crossmatch ([facility]) 07/08/23 07/08/23 07/09/23 23:45 23:46 00:55 Corrected WBC 14.3 H Uncorrected WBC Count RBC 2.32 L Hgb 7.4 L D Hct 22.7 L D MCV 97.9 MCH 32.0 MCHC 32.7 RDW 13.8 Plt Count 172 D MPV 9.4 Neut % (Auto) Lymph % (Auto) Kinney % (Auto) Eos % (Auto) Baso % (Auto) Nucleat RBC Rel Count Neut # (Auto) Lymph # (Auto) Kinney # (Auto) Eos # (Auto) Baso # (Auto) PT 14.8 H INR 1.3 APTT 32.0 Fibrinogen 83 L PHA Creatinine Clear Sodium Potassium Chloride Carbon Dioxide Anion Gap BUN Creatinine Est GFR (CKD-EPI) Glucose Calcium Total Creatine Kinase 32 Troponin I High Sens 44.6 H Blood Type O Positive Antibody Screen Negative Crossmatch ([facility]) See Detail 07/09/23 07/09/23 03:54 06:33 Corrected WBC Uncorrected WBC Count RBC Hgb 7.7 L Hct 22.7 L MCV MCH MCHC RDW Plt Count MPV Neut % (Auto) Lymph % (Auto) Kinney % (Auto) Eos % (Auto) Baso % (Auto) Nucleat RBC Rel Count Neut # (Auto) Lymph # (Auto) Kinney # (Auto) Eos # (Auto) Baso # (Auto) PT INR APTT Fibrinogen PHA Creatinine Clear 59.53 Sodium 136 Potassium 4.4 Chloride 112 H Carbon Dioxide 20.0 L Anion Gap 8.4 BUN 11 Creatinine 0.91 Est GFR (CKD-EPI) > 60.0 Glucose 106 H Calcium 7.2 L Total Creatine Kinase 43 53 Troponin I High Sens Blood Type Antibody Screen Crossmatch (AHG) A&P - Vascular Assessment/Plan (1) PAD (peripheral artery disease): Plan I had a lengthy discussion with the nurse. Patient requested that we give the patient a fluid bolus due to her hypotension. Recommended that we typed and screened her for possible transfusion. #2 talked about getting a stat H&H. I also recommended cycling cardiac enzymes and getting an EKG to look for any cardiac cause of the hypotension. Lastly with RNstated that the patient had not made any urine during her entire shift. I recommended we place a Sales catheter to monitor urine output and gauge resuscitative efforts. Also recommend having the tPA rate to 0.5 mg/h. With this plan in place I returned home. The patient did respond to the fluid bolus when I was in the room. Documented By: Krishan Rdz MD 07/09/23750 Signed By: <Electronically signed by Krishan Rdz MD> 07/09/23 075 [facility] Work Phone: 1(313) 258-520205-07-2024 Procedure [facility]05[facility]06[facility]* Encounter Date Diagnosis Assessment Notes Treatment Notes Treatment Clinical Notes Apr, Generalized anxiety disorder (ICD-10 - F41.1) [email or web address] Other 01-12-2024 Evaluation note* Encounter Date Diagnosis Assessment Notes Treatment Notes Treatment Clinical Notes Mar, Generalized anxiety disorder (ICD-10 - F41.1) [email or web address] Other 01-05-2024 Evaluation note* Encounter Date Diagnosis Assessment Notes Treatment Notes Treatment Clinical Notes Mar, Peripheral vascular disease with claudication (ICD-10 - I73.9) [email or web address] Other 12-14-2023 Evaluation note* Encounter Date Diagnosis Assessment Notes Treatment Notes Treatment Clinical Notes Feb, Generalized anxiety disorder (ICD-10 - F41.1) [email or web address] Other 12-07-2023 Evaluation note* Encounter Date Diagnosis Assessment Notes Treatment Notes Treatment Clinical Notes Feb, Peripheral vascular disease with claudication (ICD-10 - I73.9) [email or web address] Other 12-04-2023 Evaluation note* Encounter Date Diagnosis Assessment Notes Treatment Notes Treatment Clinical Notes Feb, Hypothyroidism, unspecified type (ICD-10 - E03.9) [email or web address] Other 11-15-2023 Evaluation note* Encounter Date Diagnosis Assessment Notes Treatment Notes Treatment Clinical Notes Jan, Generalized anxiety disorder (ICD-10 - F41.1) [email or web address] Other 11-09-2023 Evaluation note* Encounter Date Diagnosis Assessment Notes Treatment Notes Treatment Clinical Notes Jan, Hypothyroidism, unspecified type (ICD-10 - E03.9) Chronic condition. TSH Slightly low, decrease dose to next lower level. Reviewed lab w pt. Jan, Peripheral vascular disease with claudication (ICD-10 - I73.9) Reviewed OARRS report. Take med as prescribed. Recheck in 3m Jan, Generalized anxiety disorder (ICD-10 - F41.1) Continue present med. Discussed stress presently w ARNULFO's health issues. Consider counseling if needed. [email or web address] Other 10-09-2023 Evaluation note* Encounter Date Diagnosis Assessment Notes Treatment Notes Treatment Clinical Notes Dec, Elevated TSH (ICD-10 - R79.89) [email or web address] Other 03-23-2023 Evaluation note* Encounter Date Diagnosis Assessment Notes Treatment Notes Treatment Clinical Notes May, PAD (peripheral artery disease) (ICD-10 - I73.9) I will see anything wrong left groin at this time. We also had an ultrasound which was negative for any significant findings. I did have a rather garcia conversation with this patient today. She has vascular disease of somebody twice her age. She really needs to quit smoking or else she will probably end up a double amputee by her 60s. She was actually aware of this and this was well received. She is already trying to quit. I was happy to hear this. I will see her back in 1 year with repeat surveillance studies. The meantime she should continue her medical regimen. [email or web address] Other 03-17-2023 Evaluation note* Encounter Date Diagnosis Assessment Notes Treatment Notes Treatment Clinical Notes May, Wellness examination (ICD-10 - Z00.00) Patient will evaluate fasting labs. Discussed exercise and diet. May, PAD (peripheral artery disease) (ICD-10 - I73.9) Continue follow-up with vascular. May, Mixed hyperlipidemia (ICD-10 - E78.2) Presently on a statin will reassess with blood work. May, Other chronic pain (ICD-10 - G89.29) Reviewed OARRS report. States is unable to decrease medicine at this time. We will continue to follow-up every 3 months and continue to emphasize taking medications as needed. May, Pain in right leg (ICD-10 - M79.604) Updated pain contract signed. May, Pain in left leg (ICD-10 - M79.605) [email or web address] Other 02-09-2023 Evaluation note* Encounter Date Diagnosis Assessment Notes Treatment Notes Treatment Clinical Notes Apr, PAD (peripheral artery disease) (ICD-10 - I73.9) Patient has had extensive vascular intervention in the past with Dr. Ennis with her most recent being in 2019. She tells me she has occasional left groin pinching feeling that has been ongoing since her last procedure. By physical examination I do not feel any abnormality whatsoever. Her noninvasive testing results today were normal. In fact her physical examination was completely normal today. We will go ahead and obtain an ultrasound of the left groin region due to her ongoing and persistent pain to rule out any issues with her stent as well as any presence of possible hernia. We will have her back in the office to discuss those results when this is complete. We will also get her set up for annual surveillance exams with annual ABIs going forward. She will continue use of her Plavix and statin medications for life. It is imperative she work on smoking cessation. She understands this. Apr, Left groin pain (ICD-10 - R10.32) Apr, Current smoker (ICD-10 - F17.200) She continues to be a daily smoker. We discussed the health risks associated with tobacco smoking. She states understanding of her risks and is motivated to work on smoking cessation. Information given. [place] [employer] Other Evaluation noteNo assessment information available [facility] Work Phone: Evaluation [facility]No [facility] [employer] Other Evaluation note* Diagnosis Onset Date Resolution Status Anxiety acute PAD (peripheral artery disease) acute Right leg pain acute PAD (peripheral artery disease) acute [facility] Work Phone: Evaluation note* Diagnosis Onset Date Resolution Status Anxiety acute PAD (peripheral artery disease) acute Right leg pain acute PAD (peripheral artery disease) acute PAD (peripheral artery disease) acute [facility] Work Phone: Evaluation note* Diagnosis Onset Date Resolution Status Anxiety acute PAD (peripheral artery disease) acute Right leg pain acute PAD (peripheral artery disease) acute PAD (peripheral artery disease) acute PAD (peripheral artery disease) acute PAD (peripheral artery disease) acute [facility] Work Phone: Evaluation note* Diagnosis Onset Date Resolution Status Anxiety acute PAD (peripheral artery disease) acute Right leg pain acute PAD (peripheral artery disease) acute PAD (peripheral artery disease) acute Anxiety acute PAD (peripheral artery disease) acute Right leg pain acute PAD (peripheral artery disease) acute [facility] Work Phone: Evaluation note* Diagnosis Onset Date Resolution Status PAD (peripheral artery disease) acute PAD (peripheral artery disease) acute Anxiety acute PAD (peripheral artery disease) acute Right leg pain acute PAD (peripheral artery disease) acute Iliac artery occlusion, left acute PAD (peripheral artery disease) acute [facility] Work Phone: Evaluation note* Diagnosis Onset Date Resolution Status PAD (peripheral artery disease) acute Iliac artery occlusion, left acute PAD (peripheral artery disease) acute Anxiety acute Cigarette nicotine dependence without complication acute Right leg pain acute [facility] Work Phone: Evaluation note* Diagnosis Onset Date Resolution Status PAD (peripheral artery disease) acute Iliac artery occlusion, left acute PAD (peripheral artery disease) acute Anxiety acute Cigarette nicotine dependence without complication acute Right leg pain acute PAD (peripheral artery disease) acute [facility] Work Phone: History general Narrative - Reported* Type Description Date Medical History recent peripheral vascular occus ion Medical History Hx of endometriosis Medical History Major depressive disorder Medical History Anxiety disorder Surgical History CHOLECYSTECTOMY Surgical History HYSTERECTOMY Surgical History BYPASS GRAPH Surgical History KNEE SURGERY Surgical History LT ILIAC ANGIOPLASTY & STENT Surgical History LT ILIAC ANGIOPLASTY & STENT [email or web address] Other History general Narrative - Reported* Type Description Date Medical History recent peripheral vascular occus ion Medical History Hx of endometriosis Medical History Major depressive disorder Medical History Anxiety disorder Surgical History CHOLECYSTECTOMY Surgical History HYSTERECTOMY Surgical History BYPASS GRAPH Surgical History KNEE SURGERY Surgical History LT ILIAC ANGIOPLASTY & STENT Surgical History LT ILIAC ANGIOPLASTY & STENT Hospitalization History SEE SURGICAL HX [email or web address] Other Chief Complaint and Reason for Visit Chief Complaint i70.213/ give estima te left groin pain pad Chief Complaint Amb Documentation Amb Documentation Amb Documentation medication discussion Chief Complaint Amb Documentation Amb Documentation Amb Documentation medication discussion 1 year follow up; PAD; RACHELE's at 10:30am I70.213 Reason for Visit Anxiety PAD (peripheral artery disease) Right leg pain PAD (peripheral artery disease) Chief Complaint Amb Documentation Amb Documentation Amb Documentation medication discussion 1 year follow up; PAD; RACHELE's at 10:30am I70.213 M79.604 I73.9 I70.[address] scan Reason for Visit Anxiety PAD (peripheral artery disease) Right leg pain PAD (peripheral artery disease) PAD (peripheral artery disease) Chief Complaint Amb Documentation Amb Documentation Amb Documentation medication discussion 1 year follow up; PAD; RACHELE's at 10:30am I70.213 M79.604 I73.9 I70.[address] scan 1 month follow up Amb Documentation Recurrent Common Iliac Thrombus Recurrent Common Iliac Thrombus Reason for Visit Anxiety PAD (peripheral artery disease) Right leg pain PAD (peripheral artery disease) PAD (peripheral artery disease) PAD (peripheral artery disease) PAD (peripheral artery disease) Chief Complaint Amb Documentation Amb Documentation medication discussion 1 year follow up; PAD; RACHELE's at 10:30am I70.213 M79.604 I73.9 I70.[address] scan 1 month follow up Amb Documentation Recurrent Common Iliac Thrombus Recurrent Common Iliac Thrombus UA 3-week follow-up EKOS Reason for Visit Anxiety PAD (peripheral artery disease) Right leg pain PAD (peripheral artery disease) PAD (peripheral artery disease) Anxiety PAD (peripheral artery disease) Right leg pain PAD (peripheral artery disease) Chief Complaint 1 year follow up; PA D; RACHELE's at 10:30am I70.213 M79.604 I73.9 I70.[address] scan 1 month follow up Amb Documentation Recurrent Common Iliac Thrombus Recurrent Common Iliac Thrombus UA 3-week follow-up EKOS Amb Documentation dedra follow up Reason for Visit PAD (peripheral mino ry disease) PAD (peripheral artery disease) Anxiety PAD (peripheral artery disease) Right leg pain PAD (peripheral artery disease) Iliac artery occlusion, left PAD (peripheral artery disease) Chief Complaint Amb Documentation Recurrent Common Iliac Thrombus Recurrent Common Iliac Thrombus UA 3-week follow-up EKOS Amb Documentation dedra follow up 2 mo with rachele 11am Reason for Visit PAD (peripheral mino ry disease) Iliac artery occlusion, left PAD (peripheral artery disease) Anxiety Cigarette nicotine dependence without complication Right leg pain Chief Complaint Recurrent Common Nadine ac Thrombus Recurrent Common Iliac Thrombus UA 3-week follow-up EKOS Amb Documentation dedra follow up 2 mo with rachele 11am Reason for Visit PAD (peripheral mino ry disease) Iliac artery occlusion, left PAD (peripheral artery disease) Anxiety Cigarette nicotine dependence without complication Right leg pain PAD (peripheral artery disease) Advance Directives No Advanced Directives Records Found Advance Directive Response Recorded Date/ Time Advance Directives No August 22 5:44am Advance Directive Response Recorded Date/ Time Advance Directives No August 22 6:44am Summary Purpose Family History No Family History Records Found Relationship Condition Age at Onset Recorded Date/T debbie father Heart disease Unknown Not Specified Diabetes mellitus Unknown Relationship Condition Age at Onset Recorded Date/T debbie father Heart disease Unknown mother Diabetes mellitus Unknown Additional Source Comments Care Teams (unrecognized sec tion and content) Team Status: Active Member Role Status Dates Mercedes Ashby MD Primary Care Provider Active Team Status: Inactive Member Role Status Dates Mercedes Ashby MD Primary Care Provider Active Start: July 08, 2023 End: July 10, 2023 Krishan Rdz MD Admit Provider , Attending Provider Active Start: July 08, 2023 End: July 10, 2023 Team Status: Active Member Role Status Dates Mercedes Ashby MD Primary Care Provider Active Start: July 08, 2023 End: July 10, 2023 Krishan Rdz MD Attending Prov ider, Other Provider Active Start: July 08, 2023 End: July 10, 2023 Team Status: Inactive Member Role Status Dates Mercedes Ashby MD Primary Care Provide r, Attending Provider Active Start: July 16, 2023 End: July 16, 2023 Team Status: Inactive Member Role Status Dates Mercedes Ashby MD Primary Care Provider Active Start: August 01, 2023 End: August 01, 2023 JUDY Tong Attending Provider Active Start: August 01, 2023 End: August 01, 2023 Team Status: Active Member Role Status Dates Mercedes Ashby MD Primary Care Provider Active Start: August 02, 2023 Nicolette Chand LPN Attending Provider Active St art: August 02, 2023 Team Status: Inactive Member Role Status Dates Mercedes Ashby MD Primary Care Provide r, Attending Provider Active Start: September 11, 2023 End: September 11, 2023 Team Status: Inactive Member Role Status Dates Mercedes Ashby MD Primary Care Provider Active Start: October 03, 2023 End: October 03, 2023 Krishan Rdz MD Attending Provider Active Start: October 03, 2023 End: October 03, 2023 Team Status: Active Member Role Status Dates Mercedes Ashby MD Primary Care Provider Active Start: July 05, 2023 ARIELA Iraheta Attending Provider Active Start : July 05, 2023 Team Status: Inactive Member Role Status Dates Mercedes Ashby MD Primary Care Provider Active Start: June 20, 2023 End: June 20, 2023 Krishan Rdz MD Attending Provider Active Start: June 20, 2023 End: June 20, 2023 Team Status: Inactive Member Role Status Dates Mercedes Ashby MD Primary Care Provider Active Start: June 27, 2023 End: June 27, 2023 Krishan Rdz MD Attending Provider Active Start: June 27, 2023 End: June 27, 2023 Team Status: Inactive Member Role Status Dates Mercedes Ashby MD Primary Care Provide r, Attending Provider Active Start: July 04, 2023 End: July 04, 2023 Team Status: Inactive Member Role Status Dates Mercedes Ashby MD Primary Care Provider Active JUDY Tong Attending Provider Active Team Status: Inactive Member Role Status Dates Mercedes Ashby MD Primary Care Provider Active Krishan Rdz MD Attending Provider Active Team Status: Active Member Role Status Dates Mercedes Ashby MD Primary Care Provider Active Start: April 29, 2023 ARIELA Iraheta Attending Provider Active Start : April 29, 2023 Team Status: Active Member Role Status Dates Mercedes Ashby MD Primary Care Provider Active Start: May 10, 2023 ARIELA Iraheta Attending Provider Active Start : May 10, 2023 Team Status: Active Member Role Status Dates Mercedes Ashby MD Primary Care Provider Active Start: May 30, 2023 Nicolette Guardado Attending Provider Active Start: May 30, 2023 Team Status: Inactive Member Role Status Dates Mercedes Ashby MD Primary Care Provide r, Attending Provider Active Start: June 06, 2023 End: June 06, 2023 Team Status: Active Member Role Status Dates Mercedes Ashby MD Primary Care Provider Active Start: May 30, 2023 Nicolette Guardado LPN Attending Provider Active S tart: May 30, 2023 Team Status: Active Member Role Status Dates Mercedes Ashby MD Primary Care Provider Active Start: June 20, 2023 Krishan Rdz MD Attending Provider Active Start: June 20, 2023 Team Status: Active Member Role Status Dates Mercedes Ashby MD Primary Care Provider Active Start: June 27, 2023 Krishan Rdz MD Attending Provider Active Start: June 27, 2023 Team Status: Active Member Role Status Dates Mercedes Ashby MD Primary Care Provider Active Start: July 08, 2023 Krishan Rdz MD Attending Prov ider, Other Provider Active Start: July 08, 2023 Goals (unrecognized section and content) Goals may be documented in a n alternate sectionNo InformationNo InformationNo InformationNo InformationNo InformationNo InformationNo InformationNo InformationNo InformationNo InformationNo InformationNo InformationNo InformationNo InformationNo InformationNo InformationNo InformationNo InformationNo InformationNo InformationNo InformationNo InformationNo InformationNo InformationNo InformationNo InformationNo InformationNo InformationNo InformationNo InformationNo InformationNo InformationNo InformationNo InformationGoals may be documented in an alternate sectionGoals may be documented in an alternate sectionGoals may be documented in an alternate sectionGoals may be documented in an alternate sectionGoals may be documented in an alternate section REASON FOR VISIT (unrecogniz ed section and content) prescription refillRefillFOR MELINDA DR [facility] PAD WITH RACHELE IN OFFICEprescription refillRefillAWF/[facility]FILLNo InformationRefillNo InformationRefillRefillRefillREFILLrefillNo InformationResults/RefillRefillREFILLRefillrefillRepeat labsrefillRefillREFILL3 month Follow upRefillrefillrefillRefillRefillNo Informationrefill INFORMATION SOURCE (unrecogn ized section and content) DATE CREATED AUTHOR 05/23/2022 [facility] DATE CREATED AUTHOR AUTHOR'S ORGANIZ ATION 10/21/2023 [facility] DATE CREATED AUTHOR AUTHOR'S ORGANIZ ATION 11/06/2023 [facility] EPIC FOR RECORDS PERTAINING TO PATIENTS WHO ARE OR HAVE BEEN ENROLLED IN A CHEMICAL DEPENDENCY/SUBSTANCEABUSE PROGRAM, SOME INFORMATION MAY BE OMITTED. This clinical summary was aggregated from multiple sources. Caution should be exercised in using it in the provision of clinical care. This summary normalizes information from multiple sources, and as a consequence, information in this document may materially change the coding, format and clinical context of patient data. In addition, data may be omitted in some cases. CLINICAL DECISIONS SHOULD BE BASED ON THE PRIMARY CLINICAL RECORDS. [employer] provides no warranty or guarantee of the accuracy or completeness of information in this document.
--- NOTE | 2023-12-18 | XR_ITS ---
The [address] [address] Patient Name: ADAM REDDY MRN: [id number] date: 1980 Sex: F Assigned Patient Location: [facility] Current Patient Location: Accession/Order Number: [id number] Exam Date: 12/18/2023 09:43 Report Date: 12/20/2023 07:14 At the request of: ELINOR GRIFFITH Procedure: XR foot RT min 3V PROCEDURE: XR foot RT min 3V COMPARISON: None. HISTORY: RIGHT FOOT PAIN FINDINGS: BONES:No fracture, acute abnormality, or significant arthropathy. SOFT TISSUES:Negative. No visible soft tissue swelling. EFFUSION:None visible. OTHER: Negative. XR/XR foot RT min 3V IMPRESSION: No acute radiographic abnormality Electronically authenticated by: SHREYA TERRAZAS Date: 12/20/2023 07:14
--- OUTSIDE RECORDS SUMMARY | 2023-12-18 09:42 | XMS_ITS | CCD ---
Author Organization [facility] Care Team Providers Care Endocrinology Teacher Name Role Phone MD Mercedes Ashby Primary Care Provider [phone] MD Krishan Rdz Attending Provider [phone] JUDY Gordon Attending Provider Mercedes Ashby Unavailable Gloria Gordon Unavailable SYMONE, DR MERCEDES Reilly Admitting Unavailable ASHBY, DR MERCEDES Reilly Primary Care Unavailable ASHBY, DR MERCEDES Reilly Attending Unavailable ARDMORE, DR SHREYA Blanton Consulting Unavailable SYMONE, DR MERCEDES Reilly Admitting Unavailable ASHBY, DR MERCEDES Reilly Primary Care Unavailable ASHBY, DR MERCEDES Reilly Attending Unavailable ASHBY, DR MERCEDES Reilly Consulting Unavailable Krishan Rdz Unavailable John Araya Unavailable MD Mercedes Ashby Primary Care Provider [phone] MD Krishan Rdz Attending Provider [phone] MD Krishan Rdz Admit Provider MD Mercedes Ashby Primary Care Provider MD Krishan Rdz Attending Provider Krishan Rdz Admitting UnavailMercedes Levi Primary Care [...] [ketorolac] Drug Allergy 03-08-19 16 Itching, Unknown [facility] (14 sources) Penicillins; Translations: [Penicillins] Allergy to substance 07-09-19 13 Difficulty Breathing [facility] (20 sources) traMADol; Translations: [tramadol] Drug Allergy 07-09-19 13 Itching, Unknown [facility] (12 sources) NSAIDS (Non-Steroidal Anti-Inflamma; Translations: [NSAIDS (Non-Steroidal Anti-Inflamma] Allergy to substance 08-23-19 18 Itching [facility] (20 sources) NSAIDs Drug allergy Unknown [facility] Other (20 sources) Penicillin G Benzathine; Translations: [penicillin G benzathine] Drug allergy 06-06-19 24 Unknown, Agitated [facility] (20 sources) TORDOL Drug allergy 06-05-19 24 Unknown, [facility] (18 sources) Acetaminophen / traMADol Drug Allergy 03-08-19 [address] [facility] Repository (7 sources) Codeine Drug Allergy 05-23-19 16 Hives [facility] Repository (2 sources) NSAIDs Drug allergy (disorder) 07-09-19 [address] [facility] Repository (2 sources) traMADol Drug Allergy 07-09-[address] [facility] Rep[facility] (1 source) Tromethamine Drug Allergy 07-09-[address] [facility] Rep[facility] (3 sources) Iodine / Sodium Iodide Drug Allergy Unknown [facility] Other (16 sources) Penicillin G Drug Allergy 03-08-19 16 Comment:Sherrie verdugo [facility] Other (20 sources) Penicillin V Drug Allergy 06-13-19 07 Unknown, [facility] (17 sources) Toradol *ANALGESICS - ANTI-INFLAMMATORY * Propensity to adverse reactions 06-13-19 07 Unknown [facility] Other (17 sources) Diclofenac & Diet Manage Prod *ANALGESICS - ANTI-I Propensity to adverse reactions 03-08-19 16 Comment:NSAIDS [facility] Other (17 sources) Tylenol with Codeine #3 *ANALGESICS - OPIOID* Propensity to adverse reactions 06-13-19 07 Comment:Tyleno l w/Codeine [facility] [employer] Other (17 sources) Ultram *ANALGESICS - OPIOID* Propensity to adverse reactions 03-08-19 16 Unknown [facility] Other (18 sources) Ultracet *ANALGESICS - OPIOID* Propensity to adverse reactions 06-13-19 Unknown, [facility] (20 sources) Iodine; Translations: [iodine] Drug Allergy 06-06-19 Unknown, [facility] (1 source) Ketorolac Drug Allergy Unknown [employer] [facility] [employer] Other (1 source) Penicillin G Potassium Drug allergy 03-08-19 16 Comment:Penici llin [facility] [employer] Other (1 source) Penicillin V Potassium Drug allergy 06-13-19 07 Unknown [facility] Other (1 source) traMADol Drug Allergy Unknown [facility] Other (5 sources) Diclofenac & Diet Manage Prod Allergy to substance 01-11-20 Comment:NSAIDS [facility] (5 sources) Toradol *ANALGESICS - ANTI-INF Allergy to substance 06-05-19 24 [facility] (5 sources) Tylenol with Codeine #3 *ANALG Allergy to substance 01-11-20 Comment:Tyleno l w/Codeine [facility] (8 sources) Shrimp product; Translations: [shrimp] Allergy to substance 06-27-19 nausea, Vomiting [facility] (6 sources) Acetaminophen; Translations: [acetaminophen] Drug Allergy 07-08-19 24 [facility] (1 source) Codeine Drug Allergy 10-03-19 [facility] (1 source) Penicillin Drug Allergy 10-03-19 [facility] Medications Current Medications Medication Drug [...] US ankle/arm indiceson 10-02 US ankle/arm indices [facility] [address] [place] [address] Ultrasound Report Signed Patient: Cata Koch MR#: [id number] 0 : 1980 Acct:[id number] Age/Sex: 43 / F ADM Date: 10/03/23 Loc: [facility] Room: Type: [facility] Attending Dr: Krishan Rdz MD Ordering Provider: Krishan Rdz MD Date of Service: 10/03/23 US/US ankle/arm indices: I70.213 - Atherosclerosis of [place] arteries of extremiti... Copies to: Krishan Rdz [...] Krishan Rdz MD10/03/2023 1:05 PM Dictation Location: [place] [address] Tech: Kalani Koo Transcribed By: MERLY 10/03/23 1305 Dictated By: Krishan Rzd MD 10/03/23 1304 Signed By: 10/03/23 1305 Normal [facility] Activated partial thrombopla stin time (aPTT) in platelet poor plasma by coagulation aOrdered By: Krishan Rdz on 07-09-2023 aPTT Coag (PPP) [Time] 28.5 s 25.1-36.5 [facility] Comment on above: A hematocrit value g reater than 55% may lead to inaccurate results in coagulation testing. Patients having hematocrit values >55% require a special collection tube for coagulation studies. Please contact the laboratory at [phone] for redraw instructions. Automated basophil %Ordered By: Krishan Rdz on 07-09-2023 Basophils/100 WBC (Bld) 0.7 % Normal . [facility] Comment on above: Order Comment: Comme nt Every 6 hour while on tPA draw at 0800 per cata rn Performed By: #### P P, FIB-C, CBC #### [address] Automated basophil countOrde red By: Krishan Rdz on 07-09-2023 Basophils (Bld) [#/Vol] 0.1 10*3/uL Normal 0.0-0.2 [facility] Comment on above: Order Comment: Comme nt Every 6 hour while on tPA draw at 0800 per cata rn Result Comment: PERF ORMED BY: [place] [address] PATHOLOGIST NEWS [employer] PERSON ALLAN ROLDAN M.D. Performed By: #### P P, FIB-C, CBC #### [address] Automated blood monocyte cou ntOrdered By: Krishan Rdz on 07-09-2023 Monocytes (Bld) [#/Vol] 0.6 10*3/uL Normal 0.0-0.8 [facility] Comment on above: Order Comment: Comme nt Every 6 hour while on tPA draw at 0800 per cata rn Performed By: #### P P, FIB-C, CBC #### [address] Automated eosinophil %Ordere d By: Krishan Rdz on 07-09-2023 Eosinophils/100 WBC (Bld) 0.1 % Normal . [facility] Comment on above: Order Comment: Comme nt Every 6 hour while on tPA draw at 0800 per cata rn Performed By: #### P P, FIB-C, CBC #### [address] Automated eosinophil countOr dered By: Krishan Rdz on 07-09-2023 Eosinophils (Bld) [#/Vol] 0.0 10*3/uL Normal 0.0-0.45 [facility] Comment on above: Order Comment: Comme nt Every 6 hour while on tPA draw at 0800 per cata rn Performed By: #### P P, FIB-C, CBC #### [facility] [address] Automated monocyte %Ordered By: Krishan Rdz on 07-09-2023 Monocytes/100 WBC (Bld) 6.1 % Normal . [facility] Comment on above: Order Comment: Comme nt Every 6 hour while on tPA draw at 0800 per cata rn Performed By: #### P P, FIB-C, CBC #### [facility] [address] Automated neutrophil %Ordere d By: Krishan Rdz on 07-09-2023 Neutrophils/100 WBC (Bld) 70.0 % Normal . [facility] Comment on above: Order Comment: Comme nt Every 6 hour while on tPA draw at 0800 per cata rn Performed By: #### P P, FIB-C, CBC #### [address] Basic Metabolic Panelon Creatinine Clr Calc Pharmacy 59.53 Normal [facility] Comment on above: Result Comment: PERF ORMED BY: [place] [address] PATHOLOGIST NEWS [employer] PERSON ALLAN ROLDAN M.D. Performed By: #### B MP ####[place] [id number] [facility] GFR/1.73 sq M.predicted MDRD (S/P/Bld) [Vol rate/Area] mL/min/{1.73_m2} Normal [facility] Comment on above: Performed By: #### B MP ####[place] [id number] [place] Calcium [Mass/volume] in Ser um or PlasmaOrdered By: Krishan Rdz on 07-09-2023 Calcium [Mass/Vol] 7.2 mg/dL Low 8.6-10.3 [facility] Comment on above: Performed By: #### B MP ####[place] [id number] [place] Carbon dioxide, total [Moles /volume] in Serum or PlasmaOrdered By: Krishan Rdz on 07-09-2023 CO2 [Moles/Vol] 20.0 mmol/L Low 21.0-31.0 [facility] Comment on above: Performed By: #### B MP ####[facility] Chloride [Moles/volume] in S brian or PlasmaOrdered By: Krishan Rdz on 07-09-2023 Chloride [Moles/Vol] 112 mmol/L High 98-107 [facility] Comment on above: Performed By: #### B MP ####[place] [id number] [address] Coagulation Profileon 2023 aPTT Coag (Bld) [Time] 28.5 s Normal 25.1-36.5 [facility] Comment on above: Order Comment: Comme nt Every 6 hours while on tPA Result Comment: A he matocrit value greater than 55% may lead to inaccurate results in coagulation testing. Patients having hematocrit values >55% require a special collection tube for coagulation studies. Please contact the laboratory at [phone] for redraw instructions. Performed By: #### P P, FIB-C, CBC #### [address] Complete Blood Count Auto Di ffon 07-09-2023 Mean Corpuscular HGB Conc 34.1 g/dL Normal 32.0-35.0 [facility] Comment on above: Order Comment: Comme nt Every 6 hour while on tPA draw at 0800 per cata rn Performed By: #### P P, FIB-C, CBC #### [address] NRBC% 0.1 /100{WBC} Normal 0-0.5 [facility] Comment on above: Order Comment: Comme nt Every 6 hour while on tPA draw at 0800 per cata rn Performed By: #### P P, FIB-C, CBC #### [address] Creatine Kinaseon 07-09-2023 CK [Catalytic activity/Vol] 43 U/L Normal 30-223 [facility] Comment on above: Result Comment: PERF ORMED BY: [place] [address] PATHOLOGIST NEWS [employer] PERSON ALLAN ROLDAN M.D. Performed By: #### C K ####[place] [id number] [facility] CK [Catalytic activity/Vol] 32 U/L Normal 30-223 [facility] Comment on above: Performed By: #### F IB-C, CBC, PP #### [address] Creatine kinase [Enzymatic a ctivity/volume] in Serum or PlasmaOrdered By: Krishan Rdz on 07-09-2023 CK [Catalytic activity/Vol] 53 U/L Normal 30-223 [facility] Comment on above: Result Comment: PERF ORMED BY: [place] [address] PATHOLOGIST NEWS [employer] PERSON ALLAN ROLDAN M.D. Performed By: #### C K ####[place] [id number] [facility] Creatinine [Mass/volume] in Serum or PlasmaOrdered By: Krishan Rdz on 07-09-2023 Creatinine [Mass/Vol] 0.91 mg/dL Normal 0.60-1.20 [facility] Comment on above: Performed By: #### B MP ####[place] [id number] [facility] ECG 12 lead ECGon 07-09-2023 ECG 12 lead ECG [facility] [place] [address] [place] [address] Electrocardiograph Report Signed Patient: Cata Koch MR#: [id number] 0 : 1980 Acct:[id number] Age/Sex: 42 / F ADM Date: 07/08/23 Loc: Room: [address] [place] [address] Type: DIS IN Attending Dr: Krishan Rdz [...] BY 62 BPM Confirmed by Jyoti Salazar ([id number]) on 07/22/2023 5:07:30 PM Referred By: Electronically Signed By:Jyoti Salazar Transcribed By: MUS Signed By Jyoti Salazar MD 4 1707 Normal [facility] Erythrocyte distribution wid th [Ratio] by Automated countOrdered By: Krishan Rdz on 07-09-2023 Erythrocyte distribution width (RBC) [Ratio] 18.6 % High 11.9-15.3 [facility] Comment on above: Order Comment: Comme nt Every 6 hour while on tPA draw at 0800 per cata rn Performed By: #### P P, FIB-C, CBC #### [facility] [address] Erythrocytes [#/volume] in B lood by Automated countOrdered By: Krishan Rdz on 07-09-2023 RBC (Bld) [#/Vol] 2.92 10*6/uL Low 3.60-5.00 [facility] Comment on above: Order Comment: Comme nt Every 6 hour while on tPA draw at 0800 per cata rn Performed By: #### P P, FIB-C, CBC #### [facility] [address] [place] [id number] [facility] Fibrinogenon 07-09-2023 Fibrinogen 109 mg/dL Low 200-393 [facility] Comment on above: Order Comment: Comme nt Every 6 hours while on tPA Result Comment: A he matocrit value greater than 55% may lead to inaccurate results in coagulation testing. Patients having hematocrit values >55% require a special collection tube for coagulation studies. Please contact the laboratory at [phone] for redraw instructions. PERFORMED BY: [place] [address] PATHOLOGIST [employer] PERSON ALLAN ROLDAN M.D. Performed By: #### P P, FIB-C, CBC #### [facility] [address] [place] [address] Fibrinogen [Mass/volume] in Platelet poor plasma by Coagulation assayOrdered By: Krishan Rdz on 07-09-2023 Fibrinogen Coag (PPP) [Mass/Vol] 109 mg/dL Low 200-393 [facility] Comment on above: A hematocrit value g reater than 55% may lead to inaccurate results in coagulation testing. Patients having hematocrit values >55% require a special collection tube for coagulation studies. Please contact the laboratory at [phone] for redraw instructions. Glucose [Mass/volume] in Ser um or PlasmaOrdered By: Krishan Rdz on 07-09-2023 Glucose [Mass/Vol] 106 mg/dL High 70-100 [facility] Comment on above: ADA recommended refe rence rangeRandom Glucose Reference Range is dependent on time and content of last meal. Glucose of more than 200 mg/dL in a nonstressed, ambulatory subject supports the diagnosis of Diabetes Mellitus. Result Comment: Gilbert om Glucose Reference Range is dependent on time and content of last meal. Glucose of more than 200 mg/dL in a nonstressed, ambulatory subject supports the diagnosis of Diabetes Mellitus. ADA recommended reference range Performed By: #### B MP ####[facility] [place] [address] Hematocrit [Volume Fraction] of Blood by Automated countOrdered By: Krishan Rdz on 07-09-2023 Hematocrit (Bld) [Volume fraction] 26.0 % Low 34.0-46.4 [facility] Comment on above: Order Comment: Comme nt Every 6 hour while on tPA draw at 0800 per cata jay Performed By: #### P P, FIB-C, CBC #### [facility] [address] [place] [address] Hemoglobin [Mass/volume] in BloodOrdered By: Krishan Rdz on 07-09-2023 Hemoglobin (Bld) [Mass/Vol] 8.9 g/dL Low 11.8-15.4 [facility] Comment on above: Order Comment: Comme nt Every 6 hour while on tPA draw at 0800 per cata jay Performed By: #### P P, FIB-C, CBC #### [facility] [address] Hemoglobin and Hematocriton 07-09-2023 Hematocrit (Bld) [Volume fraction] 22.7 % Low 34.0-46.4 [facility] Comment on above: Result Comment: PERF ORMED BY: [facility] [address] [place] [address] PATHOLOGIST [employer] PERSON ALLAN ROLDAN M.D. Performed By: #### H H ####[place] [id number] [address] Hemoglobin (Bld) [Mass/Vol] 7.7 g/dL Low 11.8-15.4 [facility] Comment on above: Performed By: #### H H ####[address] INR in Platelet poor plasma by Coagulation assayOrdered By: Krishan Rdz on 07-09-2023 INR Coag (PPP) [Relative time] 1.1 {INR} Normal [facility] Comment on above: INR Therapeutic Rang [...] By: #### P P, FIB-C, CBC #### [facility] [address] Leukocytes [#/volume] correc gregoria for nucleated erythrocytes in Blood by Automated counOrdered By: Krishan Rdz on 07-09-2023 WBC corrected for nucl RBC Auto (Bld) [#/Vol] 10.6 10*3/uL 3.8-11.6 [facility] Leukocytes [#/volume] in Blo od by Automated countOrdered By: Krishan Rdz on 07-09-2023 WBC (Bld) [#/Vol] 10.6 10*3/uL Normal 3.8-11.6 [facility] Comment on above: Order Comment: Comme nt Every 6 hour while on tPA draw at 0800 per cata rn Performed By: #### P P, FIB-C, CBC #### [address] Lymphocytes [#/volume] in Bl ood by Automated countOrdered By: Krishan Rdz on 07-09-2023 Lymphocytes (Bld) [#/Vol] 2.5 10*3/uL Normal 1.00-4.8 [facility] Comment on above: Order Comment: Comme nt Every 6 hour while on tPA draw at 0800 per cata rn Performed By: #### P P, FIB-C, CBC #### [place] [address] [place] Lymphocytes/100 leukocytes i n Blood by Automated countOrdered By: Krishan Rdz on 07-09-2023 Lymphocytes/100 WBC (Bld) 23.1 % Normal . [facility] Comment on above: Order Comment: Comme nt Every 6 hour while on tPA draw at 0800 per cata rn Performed By: #### P P, FIB-C, CBC #### [facility] [address] [place] [address] [place] MCH [Entitic mass] by Automa gregoria countOrdered By: Krishan Rdz on 07-09-2023 MCH (RBC) [Entitic mass] 30.4 pg Normal 24.7-34.3 [facility] Comment on above: Order Comment: Comme nt Every 6 hour while on tPA draw at 0800 per cata rn Performed By: #### P P, FIB-C, CBC #### [facility] [address] [place] [address] MCHC Auto (RBC) [Mass/Vol]Or dered By: Krishan Rdz on 07-09-2023 MCHC (RBC) [Mass/Vol] 34.1 g/dL 32.0-35.0 [facility] MCV [Entitic volume] by Auto mated countOrdered By: Krishan Rdz on 07-09-2023 MCV (RBC) [Entitic vol] 89.1 fL Normal 80-100 [facility] Comment on above: Order Comment: Comme nt Every 6 hour while on tPA draw at 0800 per cata rn Performed By: #### P P, FIB-C, CBC #### [facility] [address] [place] [address] Neutrophils [#/volume] in Bl ood by Automated countOrdered By: Krishan Rdz on 07-09-2023 Neutrophils (Bld) [#/Vol] 7.4 10*3/uL Normal 1.8-7.7 [facility] Comment on above: Order Comment: Comme nt Every 6 hour while on tPA draw at 0800 per cata rn Performed By: #### P P, FIB-C, CBC #### [facility] [address] [place] [address] No Panel InformationOrdered By: Krishan Rdz on 07-09-2023 Estimated GFR (CKD-EPI) > 60.0 mL/Min [facility] Creatinine Clearance (Chem 59.53 [facility] Nucleated erythrocytes [Pres ence] in Blood by Automated countOrdered By: Krishan Rdz on 07-09-2023 Nucleated RBC Auto Ql (Bld) 0.1 /100{WBC} 0-0.5 [facility] Platelet mean volume [Entiti c volume] in Blood by Automated countOrdered By: Krishan Rdz on 07-09-2023 Platelet mean volume (Bld) [Entitic vol] 9.6 fL Normal 6.3-10.7 [facility] Comment on above: Order Comment: Comme nt Every 6 hour while on tPA draw at 0800 per cata rn Performed By: #### P P, FIB-C, CBC #### [facility] [address] Platelets [#/volume] in Bloo d by Automated countOrdered By: Krishan Rdz on 07-09-2023 Platelets (Bld) [#/Vol] 119 10*3/uL Significant change down 150-450 [facility] Comment on above: Delta: 172 on Order Comment: Comme nt Every 6 hour while on tPA draw at 0800 per cata jay Performed By: #### P P, FIB-C, CBC #### [facility] [address] Potassium [Moles/volume] in Serum or PlasmaOrdered By: Krishan Rdz on 07-09-2023 Potassium [Moles/Vol] 4.4 mmol/L Normal 3.5-5.1 [facility] Comment on above: Performed By: #### B MP ####[facility] Prothrombin time (PT)Ordered By: Krishan Rdz on 07-09-2023 PT Coag (PPP) [Time] 13.0 s High 9.0-12.9 [facility] Comment on above: A hematocrit value g reater than 55% may lead to inaccurate results in coagulation testing. Patients having hematocrit values >55% require a special collection tube for coagulation studies. Please contact the laboratory at [phone] for redraw instructions. Order Comment: Comme nt Every 6 hours while on tPA Result Comment: A he matocrit value greater than 55% may lead to inaccurate results in coagulation testing. Patients having hematocrit values >55% require a special collection tube for coagulation studies. Please contact the laboratory at [phone] for redraw instructions. Performed By: #### P P, FIB-C, CBC #### [facility] [address] Serum or plasma anion gap de terminationOrdered By: Krishan Rdz on 07-09-2023 Anion gap [Moles/Vol] 8.4 mmol/L Normal 6.0-15.0 [facility] Comment on above: Performed By: #### B MP ####[place] [id number] [address] Sodium [Moles/volume] in Ser um or PlasmaOrdered By: Krishan Rdz on 07-09-2023 Sodium [Moles/Vol] 136 mmol/L Normal 136-145 [facility] Comment on above: Performed By: #### B MP ####[address] Troponin I High Sensitivityo n 07-09-2023 Troponin I High Sensitivity 44.6 pg/mL High 0.0-15.0 [facility] Comment on above: Result Comment: PERF ORMED BY: [facility] [address] [place] [address] PATHOLOGIST [employer] PERSON ALLAN ROLDAN M.D. Performed By: #### F IB-C, CBC, PP #### [facility] [address] [place] [address] Troponin I.cardiac [Mass/vol ume] in Serum or Plasma by Detection limit <= 0.01 ng/Ordered By: Krishan Rdz on 07-09-2023 Troponin I.cardiac DL <= 0.01 ng/mL [Mass/Vol] 44.6 pg/mL High 0.0-15.0 [facility] Type and Screenon 07-09-2023 ABO and Rh group Nom (Bld) Blood group O Rh(D) positive Normal [facility] Comment on above: Order Comment: Comme nt Every 6 hour while on tPA Urea nitrogen [Mass/volume] in Serum or PlasmaOrdered By: Krishan Rdz on 07-09-2023 Urea nitrogen [Mass/Vol] 11 mg/dL Normal 7-25 [facility] Comment on above: Performed By: #### B MP ####[place] [id number] [address] Blood Urea Nitrogenon 2023 Urea nitrogen [Mass/Vol] 12 mg/dL Normal 7-25 [facility] Comment on above: Performed By: #### B UN, CREAT ####[place] [id number] [place] [id number] [facility] Coagulation Profileon 2023 aPTT Coag (Bld) [Time] 32.0 s Normal 25.1-36.5 [facility] Comment on above: Order Comment: Comme nt Every 6 hours while on tPA Result Comment: A he matocrit value greater than 55% may lead to inaccurate results in coagulation testing. Patients having hematocrit values >55% require a special collection tube for coagulation studies. Please contact the laboratory at [phone] for redraw instructions. Performed By: #### P P, FIB-C #### [facility] [address] INR Coag (PPP) [Relative time] 1.3 {INR} Normal [facility] Comment on above: [...] Performed By: #### P P, FIB-C #### [facility] [address] [place] [id number] [facility] PT Coag (PPP) [Time] 14.8 s High 9.0-12.9 [facility] Comment on above: Order Comment: Comme nt Every 6 hours while on tPA Result Comment: A he matocrit value greater than 55% may lead to inaccurate results in coagulation testing. Patients having hematocrit values >55% require a special collection tube for coagulation studies. Please contact the laboratory at [phone] for redraw instructions. Performed By: #### P P, FIB-C #### [facility] [address] [place] [id number] [facility] aPTT Coag (Bld) [Time] 36.1 s Normal 25.1-36.5 Th e [facility] Comment on above: Order Comment: Comme nt Every 6 hours while on tPA Result Comment: A he matocrit value greater than 55% may lead to inaccurate results in coagulation testing. Patients having hematocrit values >55% require a special collection tube for coagulation studies. Please contact the laboratory at [phone] for redraw instructions. Performed By: #### F IB-C, CBC, PP #### [facility] [address] [place] [id number] [facility] INR Coag (PPP) [Relative time] 1.0 {INR} Normal [facility] Comment on above: [...] By: #### F IB-C, CBC, PP #### [facility] [address] [place] [id number] [facility] PT Coag (PPP) [Time] 11.8 s Normal 9.0-12.9 [facility] Comment on above: Order Comment: Comme nt Every 6 hours while on tPA Result Comment: A he matocrit value greater than 55% may lead to inaccurate results in coagulation testing. Patients having hematocrit values >55% require a special collection tube for coagulation studies. Please contact the laboratory at [phone] for redraw instructions. Performed By: #### F IB-C, CBC, PP #### [facility] [address] [place] [id number] [place] aPTT Coag (Bld) [Time] 137.0 s Off scale high 25.1-36.5 [facility] Comment on above: Order Comment: Comme nt Every 6 hours while on tPA Result Comment: Crit ical value result called at 1608 on 07/08/23 A hematocrit value greater than 55% may lead to inaccurate results in coagulation testing. Patients having hematocrit values >55% require a special collection tube for coagulation studies. Please contact the laboratory at [phone] for redraw instructions. Performed By: #### C BC, PP, FIB-C ####[place] [id number] INR Coag (PPP) [Relative time] 1.0 {INR} Normal [facility] Comment on above: [...] Performed By: #### C BC, PP, FIB-C ####[address] PT Coag (PPP) [Time] 11.2 s Normal 9.0-12.9 [facility] Comment on above: Order Comment: Comme nt Every 6 hours while on tPA Result Comment: A he matocrit value greater than 55% may lead to inaccurate results in coagulation testing. Patients having hematocrit values >55% require a special collection tube for coagulation studies. Please contact the laboratory at [phone] for redraw instructions. Performed By: #### C BC, PP, FIB-C ####[address] Complete Blood Count Auto Di ffon 07-08-2023 Basophils (Bld) [#/Vol] 0.1 10*3/uL Normal 0.0-0.2 [facility] Comment on above: Order Comment: Comme nt Every 6 hour while on tPA Result Comment: PERF ORMED BY: [place] [address] PATHOLOGIST [employer] PERSON ALLAN ROLDAN M.D. Performed By: #### F IB-C, CBC, PP #### [address] Basophils/100 WBC (Bld) 0.6 % Normal . [facility] Comment on above: Order Comment: Comme nt Every 6 hour while on tPA Performed By: #### F IB-C, CBC, PP #### [address] Eosinophils (Bld) [#/Vol] 0.2 10*3/uL Normal 0.0-0.45 [facility] Comment on above: Order Comment: Comme nt Every 6 hour while on tPA Performed By: #### F IB-C, CBC, PP #### [address] Eosinophils/100 WBC (Bld) 0.9 % Normal . [facility] Comment on above: Order Comment: Comme nt Every 6 hour while on tPA Performed By: #### F IB-C, CBC, PP #### [address] Erythrocyte distribution width (RBC) [Ratio] 14.1 % Normal 11.9-15.3 [facility] Comment on above: Order Comment: Comme nt Every 6 hour while on tPA Performed By: #### F IB-C, CBC, PP #### [address] Hematocrit (Bld) [Volume fraction] 35.5 % Normal 34.0-46.4 [facility] Comment on above: Order Comment: Comme nt Every 6 hour while on tPA Performed By: #### F IB-C, CBC, PP #### [address] Hemoglobin (Bld) [Mass/Vol] 11.6 g/dL Low 11.8-15.4 [facility] Comment on above: Order Comment: Comme nt Every 6 hour while on tPA Performed By: #### F IB-C, CBC, PP #### [address] Lymphocytes (Bld) [#/Vol] 3.1 10*3/uL Normal 1.00-4.8 [facility] Comment on above: Order Comment: Comme nt Every 6 hour while on tPA Performed By: #### F IB-C, CBC, PP #### [place] [address] Lymphocytes/100 WBC (Bld) 15.0 % Normal . [facility] Comment on above: Order Comment: Comme nt Every 6 hour while on tPA Performed By: #### F IB-C, CBC, PP #### [address] MCH (RBC) [Entitic mass] 31.7 pg Normal 24.7-34.3 [facility] Comment on above: Order Comment: Comme nt Every 6 hour while on tPA Performed By: #### F IB-C, CBC, PP #### [address] MCV (RBC) [Entitic vol] 97.1 fL Normal 80-100 [facility] Comment on above: Order Comment: Comme nt Every 6 hour while on tPA Performed By: #### F IB-C, CBC, PP #### [address] Mean Corpuscular HGB Conc 32.7 g/dL Normal 32.0-35.0 [facility] Comment on above: Order Comment: Comme nt Every 6 hour while on tPA Performed By: #### F IB-C, CBC, PP #### [address] Monocytes (Bld) [#/Vol] 0.9 10*3/uL High 0.0-0.8 [facility] Comment on above: Order Comment: Comme nt Every 6 hour while on tPA Performed By: #### F IB-C, CBC, PP #### [address] Monocytes/100 WBC (Bld) 4.6 % Normal . [facility] Comment on above: Order Comment: Comme nt Every 6 hour while on tPA Performed By: #### F IB-C, CBC, PP #### [address] Neutrophils (Bld) [#/Vol] 16.1 10*3/uL High 1.8-7.7 [facility] Comment on above: Order Comment: Comme nt Every 6 hour while on tPA Performed By: #### F IB-C, CBC, PP #### [address] Neutrophils/100 WBC (Bld) 78.9 % Normal . [facility] Comment on above: Order Comment: Comme nt Every 6 hour while on tPA Performed By: #### F IB-C, CBC, PP #### [address] NRBC% 0.0 /100{WBC} Normal 0-0.5 [facility] Comment on above: Order Comment: Comme nt Every 6 hour while on tPA Performed By: #### F IB-C, CBC, PP #### [address] Platelet mean volume (Bld) [Entitic vol] 9.6 fL Normal 6.3-10.7 [facility] Comment on above: Order Comment: Comme nt Every 6 hour while on tPA Performed By: #### F IB-C, CBC, PP #### [address] Platelets (Bld) [#/Vol] 232 10*3/uL Normal 150-450 [facility] Comment on above: Order Comment: Comme nt Every 6 hour while on tPA Performed By: #### F IB-C, CBC, PP #### [address] RBC (Bld) [#/Vol] 3.66 10*6/uL Normal 3.60-5.00 [facility] Comment on above: Order Comment: Comme nt Every 6 hour while on tPA Performed By: #### F IB-C, CBC, PP #### [address] WBC (Bld) [#/Vol] 20.4 10*3/uL High 3.8-11.6 [facility] Comment on above: Order Comment: Comme nt Every 6 hour while on tPA Performed By: #### F IB-C, CBC, PP #### [facility] [address] Basophils (Bld) [#/Vol] 0.1 10*3/uL Normal 0.0-0.2 [facility] Comment on above: Order Comment: Comme nt Every 6 hour while on tPA Result Comment: PERF ORMED BY: [place] [address] PATHOLOGIST [employer] PERSON ALLAN ROLDAN M.D. Performed By: #### C BC, PP, FIB-C ####[address] Basophils/100 WBC (Bld) 1.0 % Normal . [facility] Comment on above: Order Comment: Comme nt Every 6 hour while on tPA Performed By: #### C BC, PP, FIB-C ####[address] Eosinophils (Bld) [#/Vol] 0.3 10*3/uL Normal 0.0-0.45 [facility] Comment on above: Order Comment: Comme nt Every 6 hour while on tPA Performed By: #### C BC, PP, FIB-C ####[address] Eosinophils/100 WBC (Bld) 2.7 % Normal . [facility] Comment on above: Order Comment: Comme nt Every 6 hour while on tPA Performed By: #### C BC, PP, FIB-C ####[address] Erythrocyte distribution width (RBC) [Ratio] 14.0 % Normal 11.9-15.3 [facility] Comment on above: Order Comment: Comme nt Every 6 hour while on tPA Performed By: #### C BC, PP, FIB-C ####[address] Hematocrit (Bld) [Volume fraction] 38.4 % Normal 34.0-46.4 [facility] Comment on above: Order Comment: Comme nt Every 6 hour while on tPA Performed By: #### C BC, PP, FIB-C ####[address] Hemoglobin (Bld) [Mass/Vol] 12.7 g/dL Normal 11.8-15.4 [facility] Comment on above: Order Comment: Comme nt Every 6 hour while on tPA Performed By: #### C BC, PP, FIB-C ####[address] Lymphocytes (Bld) [#/Vol] 3.3 10*3/uL Normal 1.00-4.8 [facility] Comment on above: Order Comment: Comme nt Every 6 hour while on tPA Performed By: #### C BC, PP, FIB-C ####[address] Lymphocytes/100 WBC (Bld) 29.8 % Normal . [facility] Comment on above: Order Comment: Comme nt Every 6 hour while on tPA Performed By: #### C BC, PP, FIB-C ####[address] MCH (RBC) [Entitic mass] 32.2 pg Normal 24.7-34.3 [facility] Comment on above: Order Comment: Comme nt Every 6 hour while on tPA Performed By: #### C BC, PP, FIB-C ####[address] MCV (RBC) [Entitic vol] 97.2 fL Normal 80-100 [facility] Comment on above: Order Comment: Comme nt Every 6 hour while on tPA Performed By: #### C BC, PP, FIB-C ####[address] Mean Corpuscular HGB Conc 33.1 g/dL Normal 32.0-35.0 [facility] Comment on above: Order Comment: Comme nt Every 6 hour while on tPA Performed By: #### C BC, PP, FIB-C ####[address] Monocytes (Bld) [#/Vol] 0.4 10*3/uL Normal 0.0-0.8 [facility] Comment on above: Order Comment: Comme nt Every 6 hour while on tPA Performed By: #### C BC, PP, FIB-C ####[address] Monocytes/100 WBC (Bld) 3.4 % Normal . [facility] Comment on above: Order Comment: Comme nt Every 6 hour while on tPA Performed By: #### C BC, PP, FIB-C ####[address] Neutrophils (Bld) [#/Vol] 7.1 10*3/uL Normal 1.8-7.7 [facility] Comment on above: Order Comment: Comme nt Every 6 hour while on tPA Performed By: #### C BC, PP, FIB-C ####[address] Neutrophils/100 WBC (Bld) 63.1 % Normal . [facility] Comment on above: Order Comment: Comme nt Every 6 hour while on tPA Performed By: #### C BC, PP, FIB-C ####[address] NRBC% 0.1 /100{WBC} Normal 0-0.5 [facility] Comment on above: Order Comment: Comme nt Every 6 hour while on tPA Performed By: #### C BC, PP, FIB-C ####[address] Platelet mean volume (Bld) [Entitic vol] 10.4 fL Normal 6.3-10.7 [facility] Comment on above: Order Comment: Comme nt Every 6 hour while on tPA Performed By: #### C BC, PP, FIB-C ####[address] Platelets (Bld) [#/Vol] 229 10*3/uL Normal 150-450 [facility] Comment on above: Order Comment: Comme nt Every 6 hour while on tPA Performed By: #### C BC, PP, FIB-C ####[address] RBC (Bld) [#/Vol] 3.95 10*6/uL Normal 3.60-5.00 [facility] Comment on above: Order Comment: Comme nt Every 6 hour while on tPA Performed By: #### C BC, PP, FIB-C ####[address] WBC (Bld) [#/Vol] 11.2 10*3/uL Normal 3.8-11.6 [facility] Comment on above: Order Comment: Comme nt Every 6 hour while on tPA Performed By: #### C BC, PP, FIB-C ####[place] [id number] [facility] Creatinineon 07-08-2023 Creatinine [Mass/Vol] 1.07 mg/dL Normal 0.60-1.20 [facility] Comment on above: Performed By: #### B UN, CREAT ####[place] [id number] [facility] Creatinine Clr Calc Pharmacy 53.07 Normal [facility] Comment on above: Result Comment: PERF ORMED BY: [facility] [address] [place] [address] PATHOLOGIST [employer] PERSON ALLAN ROLDAN M.D. Performed By: #### B UN, CREAT ####[place] [id number] [facility] GFR/1.73 sq M.predicted MDRD (S/P/Bld) [Vol rate/Area] mL/min/{1.73_m2} Normal [facility] Comment on above: Performed By: #### B UN, CREAT ####[place] [id number] [facility] Fibrinogenon 07-08-2023 Fibrinogen 83 mg/dL Low 200-393 [facility] Comment on above: Order Comment: Comme nt Every 6 hours while on tPA Result Comment: A he matocrit value greater than 55% may lead to inaccurate results in coagulation testing. Patients having hematocrit values >55% require a special collection tube for coagulation studies. Please contact the laboratory at [phone] for redraw instructions. PERFORMED BY: [place] [address] PATHOLOGIST NEWS [employer] PERSON ALLAN ROLDAN M.D. Performed By: #### P P, FIB-C #### [facility] [address] Fibrinogen 180 mg/dL Low 200-393 [facility] Comment on above: Order Comment: Comme nt Every 6 hours while on tPA Result Comment: A he matocrit value greater than 55% may lead to inaccurate results in coagulation testing. Patients having hematocrit values >55% require a special collection tube for coagulation studies. Please contact the laboratory at [phone] for redraw instructions. PERFORMED BY: [place] [address] PATHOLOGIST NEWS [employer] PERSON ALLAN ROLDAN M.D. Performed By: #### F IB-C, CBC, PP #### [facility] [address] [place] [address] Fibrinogen 315 mg/dL Normal 200-393 [facility] Comment on above: Order Comment: Comme nt Every 6 hours while on tPA Result Comment: A he matocrit value greater than 55% may lead to inaccurate results in coagulation testing. Patients having hematocrit values >55% require a special collection tube for coagulation studies. Please contact the laboratory at [phone] for redraw instructions. PERFORMED BY: [place] [address] PATHOLOGIST NEWS [employer] PERSON ALLAN ROLDAN M.D. Performed By: #### C BC, PP, FIB-C ####[facility] [id number] Hemogram CBC Without Diffon 07-08-2023 Erythrocyte distribution width (RBC) [Ratio] 13.8 % Normal 11.9-15.3 [facility] Comment on above: Performed By: #### C BCNO ####[address] Hematocrit (Bld) [Volume fraction] 22.7 % Significant change down 34.0-46.4 [facility] Comment on above: Performed By: #### C BCNO ####[address] Hemoglobin (Bld) [Mass/Vol] 7.4 g/dL Significant change down 11.8-15.4 [facility] Comment on above: Performed By: #### C BCNO ####[address] MCH (RBC) [Entitic mass] 32.0 pg Normal 24.7-34.3 [facility] Comment on above: Performed By: #### C BCNO ####[address] MCV (RBC) [Entitic vol] 97.9 fL Normal 80-100 [facility] Comment on above: Performed By: #### C BCNO ####[address] Mean Corpuscular HGB Conc 32.7 g/dL Normal 32.0-35.0 [facility] Comment on above: Performed By: #### C BCNO ####[place] [id number] [facility] Platelet mean volume (Bld) [Entitic vol] 9.4 fL Normal 6.3-10.7 [facility] Comment on above: Result Comment: PERF ORMED BY: [facility] [address] [place] [address] PATHOLOGIST NEWS [employer] PERSON ALLAN ROLDAN M.D. Performed By: #### C BCNO ####[address] Platelets (Bld) [#/Vol] 172 10*3/uL Significant change down 150-450 [facility] Comment on above: Performed By: #### C BCNO ####[address] [place] [address] [place] RBC (Bld) [#/Vol] 2.32 10*6/uL Low 3.60-5.00 [facility] Comment on above: Performed By: #### C BCNO ####[facility] [place] [id number] [facility] WBC (Bld) [#/Vol] 14.3 10*3/uL High 3.8-11.6 [facility] Comment on above: Performed By: #### C BCNO ####[place] [id number] [address] LeukoReduced RBCon LeukoReduced RBC NOT AVAILABLE Normal [facility] CT angio abd aorta runoffon 06-27-2023 CT angio abd aorta runoff [facility] Main [place] [address] [place] [address] CT Scan Report Signed Patient: Cata Koch MR#: [id number] 0 : 1980 Acct:[id number] Age/Sex: 42 / F ADM Date: 06/27/23 Loc: CT Room: Type: [facility] Attending Dr: Krishan Rdz MD Copies to: [...] Champ Parkinson M.D.06/27/2023 4:06 PM Dictation Location: [place] [address] Transcribed By: [facility] 06/27/23 1606 Dictated By: Champ Parkinson II, MD 06/27/23 1549 Signed By: 06/27/23 1606 Normal [facility] US ankle/arm indiceson 06-25 US ankle/arm indices [facility] [address] [place] [address] Ultrasound Report Signed Patient: Cata Koch MR#: [id number] 0 : 1980 Acct:[id number] Age/Sex: 42 / F ADM Date: 06/20/23 Loc: [facility] Room: Type: [facility] Attending Dr: Krishan Rdz MD Ordering Provider: [...] Krishan Rdz MD06/26/2023 3:45 PM Dictation Location: [place] [address] Tech: Kalani Koo Transcribed By: MERLY 06/26/23 1545 Dictated By: Krishan Rdz MD 06/26/23 1543 Signed By: 06/26/23 1545 Normal [facility] US ST HEAD_NECKon [...] by: SHREYA TERRAZAS Date: 2021-11-07 07:10 Normal [facility] Vital Signs Date Time Vital Sign Value Performing Clinician Facility 10-03-2023 11: Body height 157.48 cm MD Mercedes Ashby Work Phone: [facility] 10-03-2023 11: Body temperature 97.9 [degF] MD Mercedes Ashby Work Phone: [facility] 10-03-2023 11:14-0400 Diastolic blood pressure 78 mm[Hg] MD Mercedes Ashby Work Phone: [facility] 10-03-2023 11:14-0400 Heart rate 82 /min MD Mercedes Ashby Work Phone: [facility] 10-03-2023 11:14-0400 SaO2% (BldA) [Mass fraction] 97 % MD Mercedes Ashby Work Phone: [facility] 10-03-2023 11:14-0400 Systolic blood pressure 102 mm[Hg] MD Mercedes Ashby Work Phone: [facility] 09-11-2023 09:53-0400 Body height 157.48 cm MD Mercedes Ashby Work Phone: [facility] 09-11-2023 09:53-0400 Body mass index (BMI) [Ratio] 23.2 kg/m2 MD Mercedes Ashby Work Phone: [facility] 09-11-2023 09:53-0400 Body weight 57.6 kg MD Mercedes Ashby Work Phone: [facility] 09-11-2023 09:53-0400 Diastolic blood pressure 85 mm[Hg] MD Mercedes Ashby Work Phone: [facility] 09-11-2023 09:53-0400 Heart rate 58 /min MD Mercedes Ashby Work Phone: [facility] 09-11-2023 09:53-0400 Systolic blood pressure 128 mm[Hg] MD Mercedes Ashby Work Phone: [facility] 08-01-2023 12:09-0400 Body height 157.48 cm MD Mercedes Ashby Work Phone: [facility] 08-01-2023 12:09-0400 Body mass index (BMI) [Ratio] 22.4 kg/m2 MD Mercedes Ashby Work Phone: [facility] 08-01-2023 12:09-0400 Body temperature 97.8 [degF] MD Mercedes Ashby Work Phone: [facility] 08-01-2023 12:09-0400 Body weight 55.79 kg MD Mercedes Ashby Work Phone: [facility] 08-01-2023 12:09-0400 Diastolic blood pressure 68 mm[Hg] MD Mercedes Ashby Work Phone: [facility] 08-01-2023 12:09-0400 Heart rate 67 /min MD Mercedes Ashby Work Phone: [facility] 08-01-2023 12:09-0400 Respiratory rate 16 /min MD Mercedes Ashby Work Phone: [facility] [facility] 08-01-2023 12:09-0400 SaO2% (BldA) [Mass fraction] 98 % MD Mercedes Ashby Work Phone: [facility] 08-01-2023 12:09-0400 Systolic blood pressure 116 mm[Hg] MD Mercedes Ashby Work Phone: [facility] 07-10-2023 07:44-0400 Body temperature 98.4 [degF] MD Mercedes Ashby Work Phone: [facility] 07-10-2023 07:44-0400 Diastolic blood pressure 68 mm[Hg] MD Mercedes Ashby Work Phone: [facility] 07-10-2023 07:44-0400 Heart rate 82 /min MD Mercedes Ashby Work Phone: [facility] 07-10-2023 07:44-0400 Respiratory rate 16 /min MD Mercedes Ashby Work Phone: [facility] 07-10-2023 07:44-0400 SaO2% (BldA) [Mass fraction] 94 % MD Mercedes Ashby Work Phone: [facility] 07-10-2023 07:44-0400 Systolic blood pressure 123 mm[Hg] MD Mercedes Ashby Work Phone: [facility] 07-10-2023 06:00-0400 Body weight 56.8 kg MD Mercedes Ashby Work Phone: [facility] 07-09-2023 17:03-0400 Body height 157 cm MD Mercedes Ashby Work Phone: [facility] 07-09-2023 16:00-0400 Inhaled oxygen flow rate 2 L/min MD Mercedes Ashby Work Phone: [facility] 07-04-2023 10:57-0400 Body height 160.02 cm MD Mercedes Ashby Work Phone: [facility] 07-04-2023 10:57-0400 Body mass index (BMI) [Ratio] 22.3 kg/m2 MD Mercedes Ashby Work Phone: [facility] 07-04-2023 10:57-0400 Body weight 57.15 kg MD Mercedes Ashby Work Phone: [facility] 07-04-2023 10:57-0400 Diastolic blood pressure 76 mm[Hg] MD Mercedes Ashby Work Phone: [facility] 07-04-2023 10:57-0400 Heart rate 67 /min MD Mercedes Ashby Work Phone: [facility] 07-04-2023 10:57-0400 Systolic blood pressure 109 mm[Hg] MD Mercedes Ashby Work Phone: [facility] 06-27-2023 11:32-0400 Body height 160.02 cm MD Mercedes Ashby Work Phone: [facility] 06-27-2023 11:32-0400 Body mass index (BMI) [Ratio] 21.2 kg/m2 MD Mercedes Ashby Work Phone: [facility] 06-27-2023 11:32-0400 Body temperature 98.2 [degF] MD Mercedes Ashby Work Phone: [facility] 06-27-2023 11:32-0400 Body weight 54.43 kg MD Mercedes Ashby Work Phone: [facility] 06-27-2023 11:32-0400 Diastolic blood pressure 70 mm[Hg] MD Mercedes Ashby Work Phone: [facility] 06-27-2023 11:32-0400 Heart rate 100 /min MD Mercedes Ashby Work Phone: [facility] 06-27-2023 11:32-0400 SaO2% (BldA) [Mass fraction] 98 % MD Mercedes Ashby Work Phone: [facility] 06-27-2023 11:32-0400 Systolic blood pressure 102 mm[Hg] MD Mercedes Ashby Work Phone: [facility] 06-20-2023 11:18-0400 Body height 160.02 cm MD Mercedes Ashby Work Phone: [facility] 06-20-2023 11:18-0400 Body mass index (BMI) [Ratio] 21.2 kg/m2 MD Mercedes Ashby Work Phone: [facility] 06-20-2023 11:18-0400 Body temperature 97.6 [degF] MD Mercedes Ashby Work Phone: [facility] 06-20-2023 11:18-0400 Body weight 54.43 kg MD Mercedes Ashby Work Phone: [facility] 06-20-2023 11:18-0400 Diastolic blood pressure 62 mm[Hg] MD Mercedes Ashby Work Phone: [facility] 06-20-2023 11:18-0400 Heart rate 72 /min MD Mercedes Ashby Work Phone: [facility] 06-20-2023 11:18-0400 Respiratory rate 16 /min MD Mercedes Ashyb Work Phone: [facility] 06-20-2023 11:18-0400 SaO2% (BldA) [Mass fraction] 94 % MD Mercedes Ashby Work Phone: [facility] 06-20-2023 11:18-0400 Systolic blood pressure 106 mm[Hg] MD Mercedes Ashby Work Phone: [facility] 06-06-2023 10:52-0400 Body height 160.02 cm [facility] 06-06-2023 10:52-0400 Body mass index (BMI) [Ratio] 21.8 kg/m2 [facility] 06-06-2023 10:52-0400 Body weight 55.96 kg [facility] 06-06-2023 10:52-0400 Diastolic blood pressure 79 mm[Hg] [facility] 06-06-2023 10:52-0400 Heart rate 74 /min [facility] 06-06-2023 10:52-0400 Systolic blood pressure 107 mm[Hg] [facility] 01-10-2023 14:15-0500 Body height 160.02 cm Mercedes Ashby Other [facility] [employer] Other 01-10-2023 14:15-0500 Body mass index (BMI) [Ratio] 21.64 kg/m2 Mercedes sAhby Other [employer] [facility] [employer] Other 01-10-2023 14:15-0500 Body weight 55.43 kg Mercedes Ashby Other [facility] [employer] Other 01-10-2023 14:15-0500 Diastolic blood pressure 87 mm[Hg] Mercedes Ashby Other [employer] [facility] [employer] Other 01-10-2023 14:15-0500 Systolic blood pressure 124 mm[Hg] Mercedes Ashby Other [employer] Other 05-24-2022 12:45-0400 Body height 160.02 cm Krishan Rdz Other [employer] Other 05-24-2022 12:45-0400 Body mass index (BMI) [Ratio] 23.56 kg/m2 Krishan Nettlesranulfo Other [employer] Other 05-24-2022 12:45-0400 Body temperature 96.6 [degF] Krishan Rdz Other [employer] Other 05-24-2022 12:45-0400 Body weight 60.33 kg Krishan Nettlesranulfo Other [employer] Other 05-24-2022 12:45-0400 Diastolic blood pressure 64 mm[Hg] Krishan Nettlesranulfo Other [employer] Other 05-24-2022 12:45-0400 SaO2% (BldA) [Mass fraction] 97 % Krishan Nettlesranulfo Other [employer] Other 05-24-2022 12:45-0400 Systolic blood pressure 110 mm[Hg] Krishan Rdz Other [employer] Other 05-18-2022 11:30-0400 Body height 160.02 cm Mercedes Ashby Other [employer] Other 05-18-2022 11:30-0400 Body mass index (BMI) [Ratio] 23.7 kg/m2 Mercedes Ashby Other [employer] Other 05-18-2022 11:30-0400 Body weight 60.69 kg Mercedes Ashby Other [employer] Other 05-18-2022 11:30-0400 Diastolic blood pressure 70 mm[Hg] Mercedes Ashby Other [employer] Other 05-18-2022 11:30-0400 Respiratory rate 12 /min Mercedes Ashby Other [employer] Other 05-18-2022 11:30-0400 Systolic blood pressure 116 mm[Hg] Mercedes Ashby Other [employer] Other 04-12-2022 11:00-0500 Body height 160.02 cm Gloria Gordon Other [employer] Other 04-12-2022 11:00-0500 Body mass index (BMI) [Ratio] 24.8 kg/m2 Gloria Perezjuan jjocelyn Other [employer] Other 04-12-2022 11:00-0500 Body temperature 97.8 [degF] Gloria Gordon Other [employer] Other 04-12-2022 11:00-0500 Body weight 63.5 kg Gloria Gordon Other [employer] Other 04-12-2022 11:00-0500 Diastolic blood pressure 68 mm[Hg] Gloria Perezpolly Other [employer] Other 04-12-2022 11:00-0500 SaO2% (BldA) [Mass fraction] 99 % Gloria Perezpolly Other [employer] Other 04-12-2022 11:00-0500 Systolic blood pressure 112 mm[Hg] Gloria Perezpolly Other [employer] Other Encounters Encounter Date Encounter Type Care Provider Facility Start: 11-05-2023 End: 11-05-2023 ambulatory LANCE LAGUERRE Not Available Start: 10-24-2023 End: 10-24-2023 ambulatory JASE ROSARIO Not Available Start: 10-03-2023 End: 10-03-2023 Patient encounter procedure MD Mercedes Ashby Work Phone: [facility] Physician [facility] Work Phone: Start: 10-03-2023 End: 10-03-2023 ambulatory MD Mercedes Ashby Work Phone: [facility] Work Phone: Start: 09-11-2023 End: 09-11-2023 ambulatory MD Mercedes Ashby Work Phone: [facility] Work Phone: Start: 09-11-2023 End: 09-11-2023 Patient encounter procedure MD Mercedes Ashby Work Phone: [facility] Physician [facility] Work Phone: Start: 09-10-2023 End: 09-10-2023 ambulatory LANCE LAGUERRE Not Available Start: 08-02-2023 Non-patient / Non-visit MD Angie Ashby Work Phone: [facility] Physician [facility] Work Phone: Start: 08-01-2023 End: 08-01-2023 ambulatory MD Mercedes Ashby Work Phone: [facility] Work Phone: Start: 08-01-2023 End: 08-01-2023 Patient encounter procedure MD Mercedes Ashby Work Phone: [facility] Physician [facility] Work Phone: Start: 07-16-2023 End: 07-16-2023 Patient encounter procedure MD Mercedes Ashby Work Phone: [facility] Physician [facility] Work Phone: Start: 07-08-2023 End: 07-10-2023 Non-patient / Non-visit MD Mercedes Ashby Work Phone: [facility] Physician [facility] Work Phone: Start: 07-08-2023 End: 07-10-2023 Evaluation and management of inpatient MD Mercedes Ashby Work Phone: [facility] [place] [facility] Work Phone: Start: 07-05-2023 Non-patient / Non-visit MD Angie Ashby Work Phone: [facility] Physician [facility] Work Phone: Start: 07-04-2023 End: 07-04-2023 Patient encounter procedure MD Mercedes Ashby Work Phone: [facility] Physician [facility] Work Phone: Start: 06-27-2023 End: 06-27-2023 Patient encounter procedure MD Mercedes Ashby Work Phone: [facility] Work Phone: Start: 06-27-2023 End: 06-27-2023 ambulatory MD Mercedes Ashby Work Phone: [facility] Work Phone: Start: 06-20-2023 End: 06-20-2023 ambulatory MD Mercedes Ashby Work Phone: [facility] Work Phone: Start: 06-20-2023 End: 06-20-2023 Patient encounter procedure MD Mercedes Ashby Work Phone: [facility] Physician [facility] Work Phone: Start: 06-06-2023 End: 06-06-[address] [facility] Work Phone: Start: 06-06-2023 End: 06-06-2023 Patient encounter procedure [facility] Physician [facility] Work Phone: Start: 05-30-2023 Non-patient / Non-visit [facility] Work Phone: Start: 05-10-2023 Non-patient / Non-visit [facility] Physician [facility] Work Phone: Start: 04-29-2023 Non-patient / Non-visit [facility] Physician [facility] Work Phone: Start: 04-12-2023 End: 04-12-2023 ambulatory Mercedes Ashby Other [employer] Other Start: 04-12-2023 Telephone encounter Mercedes Symone [facility] Start: 03-15-2023 End: 03-15-2023 ambulatory Mercedes Ashby Other [employer] Other Start: 03-15-2023 Telephone encounter Mrecedes Symone [facility] Start: 03-08-2023 End: 03-08-2023 ambulatory Mercedes Ashby Other [employer] Other Start: 03-08-2023 Telephone encounter Mercedes Ashby [facility] Start: 02-14-2023 End: 02-14-2023 ambulatory Mercedes Ashby Other [employer] Other Start: 02-14-2023 Telephone encounter Mercedes Ashby [facility] Start: 02-07-2023 End: 02-07-2023 ambulatory Mercedes Ashby Other [employer] Other Start: 02-07-2023 Telephone encounter Mercedes Ashby [facility] Start: 02-04-2023 End: 02-04-2023 ambulatory Mercedes Ashby Other [employer] Other Start: 02-04-2023 Telephone encounter Mercedes Ashby [facility] Start: 01-16-2023 End: 01-16-2023 ambulatory Mercedes Ashby Other [employer] Other Start: 01-16-2023 Telephone encounter Mercedes Ashby [facility] Start: 01-10-2023 End: 01-10-2023 ambulatory Mercedes Ashby Other [employer] Other Start: 01-10-2023 Office outpatient vi sit 15 minutes Mercedes Ashby [facility] Start: 12-24-2022 End: 12-24-2022 ambulatory Mercedes Ashby Other [employer] Other Start: 12-24-2022 Telephone encounter Mercedes Ashby [facility] Start: 12-17-2022 End: 12-17-2022 ambulatory Mercedes Ashby Other [employer] Other Start: 12-17-2022 Telephone encounter Mercedes Ashby [facility] Start: 12-14-2022 End: 12-14-2022 ambulatory Mercedes Ashby Other [employer] Other Start: 12-14-2022 Telephone encounter Mercedes Ashby [facility] Start: 12-10-2022 End: 12-10-2022 ambulatory Mercedes Ashby Other [employer] Other Start: 12-10-2022 Telephone encounter Mercedes Ashby [facility] Start: 11-19-2022 End: 11-19-2022 ambulatory Mercedes Ashby Other [employer] Other Start: 11-19-2022 Telephone encounter Mercedes Ashby [facility] Start: 11-15-2022 End: 11-15-2022 ambulatory Mercedes Ashby Other [employer] Other Start: 11-15-2022 Telephone encounter Mercedes Ashby [facility] Start: 10-22-2022 End: 10-22-2022 ambulatory Mercedes Ashby Other [employer] Other Start: 10-22-2022 Telephone encounter Mercedes Ashby [facility] Start: 10-18-2022 End: 10-18-2022 ambulatory Mercedes Ashby Other [employer] Other Start: 10-18-2022 Telephone encounter Mercedes Ashby [facility] Start: 09-20-2022 End: 09-20-2022 ambulatory Mercedes Ashby Other [employer] Other Start: 09-20-2022 Telephone encounter Mercedes Ashby [facility] Start: 09-19-2022 End: 09-19-2022 ambulatory Mercedes Ashby Other [employer] Other Start: 09-19-2022 Telephone encounter Mercedes Ashby [facility] Start: 08-27-2022 End: 08-27-2022 ambulatory Mercedes Ashby Other [employer] Other Start: 08-27-2022 Telephone encounter Mercedes Ashby [facility] Start: 08-21-2022 End: 08-21-2022 ambulatory Mercedes Ashby Other [employer] Other Start: 08-21-2022 Telephone encounter Mercedes Ashby [facility] Start: 07-31-2022 End: 07-31-2022 ambulatory Mercedes Ashby Other [employer] Other Start: 07-31-2022 Telephone encounter Mercedes Ashby [facility] Start: 07-03-2022 End: 07-03-2022 ambulatory Mercedes Ashby Other [employer] Other Start: 07-03-2022 Telephone encounter Mercedes Ashby [facility] Start: 06-27-2022 End: 06-27-2022 ambulatory Mercedes Ashby Other [employer] Other Start: 06-27-2022 Telephone encounter Mercedes Ashby [facility] Start: 06-05-2022 End: 06-05-2022 ambulatory Mercedes Ashby Other [employer] Other Start: 06-05-2022 Telephone encounter Mercedes Ashby [facility] Start: 05-31-2022 End: 05-31-2022 ambulatory Mercedes Ashby Other [employer] Other Start: 05-31-2022 Telephone encounter Mercedes Ashby [facility] Start: 05-24-2022 End: 05-24-2022 ambulatory Krishan Rdz Other [employer] Other Start: 05-24-2022 Office outpatient vi sit 15 minutes Krishan Rdz [facility] Start: 05-23-[address] MERCEDES ASHBY Facil ity:H1 Start: 05-18-2022 End: 05-18-2022 ambulatory Mercedes Ashby Other [employer] Other Start: 05-18-2022 Encounter for genera l adult medical examination without abnormal findings Mercedes Ashby [facility] Start: 05-18-2022 Periodic preventive med est patient 40-64yrs Mercedes Ashby [facility] Start: 05-07-2022 End: 05-07-2022 ambulatory Mercedes Ashby Other [employer] Other Start: 05-07-2022 Telephone encounter Mercedes Ashby [facility] Start: 05-02-2022 End: 05-02-2022 ambulatory Mercedes Ashby Other [employer] Other Start: 05-02-2022 Telephone encounter Mercedes Ashby [facility] Start: 04-26-2022 End: 04-26-2022 ambulatory MD Mercedes Ashby Work Phone: [facility] Work Phone: Start: 04-26-2022 End: 04-26-2022 Patient encounter procedure MD Mercedes Ashby Work Phone: [facility] [place] Work Phone: Start: 04-12-2022 End: 04-12-2022 ambulatory Gloria Gordon Other [employer] Other Start: 04-12-2022 [facility] visit new patient Gloria banks [facility] Start: 04-12-2022 End: 04-12-2022 Patient encounter procedure MD Mercedes Ashby Work Phone: [facility] Start: 04-09-2022 End: 04-09-2022 ambulatory Mercedes Ashby Other [employer] Other Start: 04-09-2022 Telephone encounter Mercedes Ashby [facility] Start: 04-05-2022 End: 04-05-2022 ambulatory Mercedes Ashby Other [place] [employer] Other Start: 04-05-2022 Telephone encounter Mercedes Ashby [facility] Start: 12-20-2021 Preoperative cardiovascular examination Mercedes Ashby Other [employer] Other Start: 11-03-2021 End: 11-04-[address] SHREYA TERRAZAS Facility: Procedures Date Procedure Procedure Detail Performing Clinician Start: 07-09-2023 Angiography MD Mercedes Ashby Work Phone: Start: 07-09-2023 Antibody screen Krishan Rdz Comment on above: Order Comment: Comme nt Every 6 hour while on tPA Result Comment: PERF ORMED BY: [facility] [address] [place] [address] PATHOLOGIST NEWS [employer] ALLAN ROLDAN M.D. Start: 07-08-2023 IR Angiogram [...] Activity Detail Author Start: 08-06-2023 Patient referral [facility] Work Phone: Start: 07-10-2023 [facility] Start: 07-09-2023 Hospital admission [facility] Start: 07-09-2023 [facility] Start: 07-08-2023 Dilation of Abdominal Aorta with Intraluminal Device, Percutaneous Approach Dilation of Abdominal Aorta with Intraluminal Device, Percutaneous Approach [facility] Start: 07-08-2023 Dilation of Left Common Iliac Artery with Intraluminal Device, Percutaneous Approach Dilation of Left Common Iliac Artery with Intraluminal Device, Percutaneous Approach [facility] Start: 07-08-2023 Dilation of Left External Iliac Artery with Intraluminal Device, Percutaneous Approach Dilation of Left External Iliac Artery with Intraluminal Device, Percutaneous Approach [facility] Start: 07-08-2023 Extirpation of Matter from Abdominal Aorta, Percutaneous Approach Extirpation of Matter from Abdominal Aorta, Percutaneous Approach [facility] Start: 07-08-2023 Extirpation of Matter from Left Common Iliac Artery, Percutaneous Approach Extirpation of Matter from Left Common Iliac Artery, Percutaneous Approach [facility] Start: 07-08-2023 Extirpation of Matter from Left External Iliac Artery, Percutaneous Approach Extirpation of Matter from Left External Iliac Artery, Percutaneous Approach [facility] Start: 07-08-2023 Fragmentation of Left Common Iliac Artery, Percutaneous Approach, Ultrasonic Fragmentation of Left Common Iliac Artery, Percutaneous Approach, Ultrasonic [facility] Start: 07-08-2023 Fragmentation of Left External Iliac Artery, Percutaneous Approach, Ultrasonic Fragmentation of Left External Iliac Artery, Percutaneous Approach, Ultrasonic [facility] Start: 07-08-2023 Introduction of Other Thrombolytic into Peripheral Artery, Percutaneous Approach Introduction of Other Thrombolytic into Peripheral Artery, Percutaneous Approach [facility] Start: 06-27-2023 CT of abdominal aorta with contrast CT angio abd aorta runoff [facility] Start: 06-27-2023 CT Unspecified body region [facility] Start: 06-20-2023 Ankle brachial pressure index [facility] Start: 04-26-2022 Duplex scan of lower limb arteries US arterial duplex LE LT [facility] Start: 04-26-2022 US Lower extremity artery - left [facility] Ankle brachial press ure index [facility] CT Unspecified body region [facility] Patient Education Peripheral art stacey disease and claudication Quitting Smoking for Older Adults Smoking: Not Just Harmful to Your Lungs and Heart Peripheral Vascular (Arterial) Disease (DC) Peripheral Vascular Stenting (DC) Quitting smoking Bleeding Precautions Going Home on Blood Thinners Wound Care for Arterial Puncture (DC) Vaping Know your Meds [facility] Work Phone: Patient referral [facility] Work Phone: [facility] Immunizations Immunization Date Immunization Notes Care Provider Fa cility 10-31-2020 COVID-19 Vaccine Pfizer - Documentation Purposes Only Mercedes Ashby Other [facility] 10-11-2020 COVID-19 Vaccine Pfizer - Documentation Purposes Only Mercedes Ashby Other [facility] NEGATED: Highlighted row has not occurred!04-27-2015 influenza, seasonal, injectable Patient Objection Mercedes Ashby Other [employer] Other Payers Date Payer Category Payer Self-pay [id number] 1980 Unknown [id number] .16.84 [id number] 1980 Unknown [id number] 1978 Unknown [id number] .[id number] [id number] 1978 Unknown [id number] .[id number] [id number] 1978 Unknown [id number] 1959 Self-pay [id number] 1961 Unknown [id number] Unknown [id number] Unknown [id number] Social History Date Type Detail Facility Tobacco smoking status [facility] Unknown if ever smoked [facility] Work Phone: Start: 1980 Sex Assigned At Female F [facility] Sex Assigned At Sex Assigned At Bir th [facility] [employer] Other Start: 01-22-2018 Tobacco smoking status [facility] Smoker (finding) [facility] Start: 06-27-2023 End: 07-08-2023 Tobacco smoking status [facility] Ex-smoker (finding) [facility] Medical Equipment Procedure Code Equipment Code Equipment Origin al Text Equipment Identifier Dates Aortogram, abdominal, with bilateral lower extremity runoff IR STENT SMART 10 X 30 120CM FDA Start: 08-22-2017 Aortogram, abdominal, with bilateral lower extremity runoff IR STENT SMART 9 X 30 120 CM FDA Start: 08-22-2017 Aortogram, abdominal, with bilateral lower extremity runoff [id number] FDA Start: 04-15-2019 Aortogram, abdominal, with bilateral lower extremity runoff IR STENT SMART 10 X 30 120CM FDA Start: 08-22-2017 Aortogram, abdominal, with bilateral lower extremity runoff IR STENT SMART 9 X 30 120 CM FDA Start: 08-22-2017 Aortogram, abdominal, with bilateral lower extremity runoff [id number] FDA Start: 04-15-2019 Aortogram, abdominal, with bilateral lower extremity runoff IR STENT SMART 10 X 30 120CM FDA Start: 08-22-2017 Aortogram, abdominal, with bilateral lower extremity runoff IR STENT SMART 9 X 30 120 CM FDA Start: 08-22-2017 Aortogram, abdominal, with bilateral lower extremity runoff [id number] FDA Start: 04-15-2019 Aortogram, abdominal, with bilateral lower extremity runoff IR STENT SMART 10 X 30 120CM FDA Start: 08-22-2017 Aortogram, abdominal, with bilateral lower extremity runoff IR STENT SMART 9 X 30 120 CM FDA Start: 08-22-2017 Aortogram, abdominal, with bilateral lower extremity runoff [id number] FDA Start: 04-15-2019 Aortogram, abdominal, with bilateral lower extremity runoff IR STENT SMART 10 X 30 120CM FDA Start: 08-22-2017 Aortogram, abdominal, with bilateral lower extremity runoff IR STENT SMART 9 X 30 120 CM FDA Start: 08-22-2017 Aortogram, abdominal, with bilateral lower extremity runoff [id number] FDA Start: 04-15-2019 Aortogram, abdominal, with bilateral lower extremity runoff IR STENT SMART 10 X 30 120CM FDA Start: 08-22-2017 Aortogram, abdominal, with bilateral lower extremity runoff IR STENT SMART 9 X 30 120 CM FDA Start: 08-22-2017 Aortogram, abdominal, with bilateral lower extremity runoff [id number] FDA Start: 04-15-2019 Aortogram, abdominal, with bilateral lower extremity runoff IR STENT SMART 10 X 30 120CM FDA Start: 08-22-2017 Aortogram, abdominal, with bilateral lower extremity runoff IR STENT SMART 9 X 30 120 CM FDA Start: 08-22-2017 Aortogram, abdominal, with bilateral lower extremity runoff [id number] FDA Start: 04-15-2019 Aortogram, abdominal, with bilateral lower extremity runoff IR STENT SMART 10 X 30 120CM FDA Start: 08-22-2017 Aortogram, abdominal, with bilateral lower extremity runoff IR STENT SMART 9 X 30 120 CM FDA Start: 08-22-2017 Aortogram, abdominal, with bilateral lower extremity runoff [id number] FDA Start: 04-15-2019 Aortogram, abdominal, with bilateral lower extremity runoff IR STENT SMART 10 X 30 120CM FDA Start: 08-22-2017 Aortogram, abdominal, with bilateral lower extremity runoff IR STENT SMART 9 X 30 120 CM FDA Start: 08-22-2017 Aortogram, abdominal, with bilateral lower extremity runoff [id number] FDA Start: 04-15-2019 Aortogram, abdominal, with bilateral lower extremity runoff IR STENT SMART 10 X 30 120CM FDA Start: 08-22-2017 Aortogram, abdominal, with bilateral lower extremity runoff IR STENT SMART 9 X 30 120 CM FDA Start: 08-22-2017 Aortogram, abdominal, with bilateral lower extremity runoff [id number] FDA Start: 04-15-2019 Aortogram, abdominal, with bilateral lower extremity runoff IR STENT SMART 10 X 30 120CM FDA Start: 08-22-2017 Aortogram, abdominal, with bilateral lower extremity runoff IR STENT SMART 9 X 30 120 CM FDA Start: 08-22-2017 Aortogram, abdominal, with bilateral lower extremity runoff [id number] FDA Start: 04-15-2019 Angiogram, for thrombolysis follow-up Multiple peripheral artery stent, bare-metal ()[id number] FDA Start: 07-09-2023 Angiogram, for thrombolysis follow-up Multiple peripheral artery stent, bare-metal ()[id number] FDA Start: 07-09-2023 Goals Date Patient Goal Desired Activity /State Functional Status Date Assessment Result Facility 07-08-2023 Functional status Patient at Baseline [facility] Work Phone: Mental Status Date Assessment Result Facility 07-08-2023 Cognitive function Cognitive Sta tus Patient at Baseline [facility] Work Phone: Clinical Notes 04-12-2022 to 07-09-2023 Note Date & Type Note Facility 07-09-2023 Progress note Note Date/Time July 09, 2023 7:57am [facility] [address] [place] [address] Vascular Surgery Progress Note Signed Patient: Cata Koch MR#: [id number] : 1980 Acct:[id number] Age/Sex: 42 / F Adm Date: 4 Loc: Room: [address] [place] [address] Type: REG SDC Attending Dr: Krishan Rdz [...] 63.1 78.9 Lymph % (Auto) 29.8 15.0 Ellis % (Auto) 3.4 4.6 Eos % (Auto) 2.7 0.9 Baso % (Auto) 1.0 0.6 Nucleat RBC Rel Count 0.1 0.0 Neut # (Auto) 7.1 16.1 H Lymph # (Auto) 3.3 3.1 Ellis # (Auto) 0.4 0.9 H Eos # [...] 9.4 Neut % (Auto) Lymph % (Auto) Ellis % (Auto) Eos % (Auto) Baso % (Auto) Nucleat RBC Rel Count Neut # (Auto) Lymph # (Auto) Ellis # (Auto) Eos # (Auto) Baso # (Auto) PT 14.8 H INR 1.3 APTT 32.0 Fibrinogen 83 L PHA Creatinine Clear Sodium Potassium Chloride Carbon Dioxide Anion Gap BUN Creatinine Est GFR (CKD-EPI) Glucose Calcium Total Creatine Kinase 32 Troponin I High Sens 44.6 H Blood Type O Positive Antibody Screen Negative Crossmatch ([facility]) See Detail 07/09/23 07/09/23 03:54 06:33 Corrected WBC Uncorrected WBC Count RBC Hgb 7.7 L Hct 22.7 L MCV MCH MCHC RDW Plt Count MPV Neut % (Auto) Lymph % (Auto) Ellis % (Auto) Eos % (Auto) Baso % (Auto) Nucleat RBC Rel Count Neut # (Auto) Lymph # (Auto) Ellis # (Auto) Eos # (Auto) Baso # (Auto) PT INR APTT Fibrinogen PHA Creatinine Clear 59.53 Sodium 136 Potassium 4.4 Chloride 112 H Carbon Dioxide 20.0 L Anion Gap 8.4 BUN 11 Creatinine 0.91 Est GFR (CKD-EPI) > 60.0 Glucose 106 H Calcium 7.2 L Total Creatine Kinase 43 53 Troponin I High Sens Blood Type Antibody Screen Crossmatch ([facility]) A&P - Vascular Assessment/Plan (1) PAD [...] this. Documented By: Krishan Rdz MD 07/09/23 1121 Signed By: <Electronically signed by Krishan Rdz MD> 07/09/23 0757 [facility] Work Phone: 1(633) 309-766405-07-2024 Progress note Author Krishan Rdz [facility] July 09, 2023 7:55am Note Date/Time July 09, 2023 7:55am [facility] [address] [place] [address] Vascular Surgery Progress Note Signed Patient: Cata Koch MR#: [id number] : 1980 Acct:[id number] Age/Sex: 42 / F Adm Date: 4 Loc: Room: [address] [place] [address] Type: REG SDC Attending Dr: Krishan Rdz [...] 63.1 78.9 Lymph % (Auto) 29.8 15.0 Ellis % (Auto) 3.4 4.6 Eos % (Auto) 2.7 0.9 Baso % (Auto) 1.0 0.6 Nucleat RBC Rel Count 0.1 0.0 Neut # (Auto) 7.1 16.1 H Lymph # (Auto) 3.3 3.1 Ellis # (Auto) 0.4 0.9 H Eos # (Auto) 0.3 0.2 Baso # (Auto) 0.1 0.1 PT 11.2 11.8 INR 1.0 1.0 APTT 137.0 H* 36.1 Fibrinogen 315 180 L PHA Creatinine Clear 53.07 Sodium Potassium Chloride Carbon Dioxide Anion Gap BUN 12 Creatinine 1.07 Est GFR (CKD-EPI) > 60.0 Glucose Calcium Total Creatine Kinase Troponin I High Sens Blood Type Antibody Screen Crossmatch ([facility]) 07/08/23 07/08/23 07/09/23 23:45 23:46 00:55 Corrected WBC 14.3 H Uncorrected WBC Count RBC 2.32 L Hgb 7.4 L D Hct 22.7 L D MCV 97.9 MCH 32.0 MCHC 32.7 RDW 13.8 Plt Count 172 D MPV 9.4 Neut % (Auto) Lymph % (Auto) Ellis % (Auto) Eos % (Auto) Baso % (Auto) Nucleat RBC Rel Count Neut # (Auto) Lymph # (Auto) Ellis # (Auto) Eos # (Auto) Baso # (Auto) PT 14.8 H INR 1.3 APTT 32.0 Fibrinogen 83 L PHA Creatinine Clear Sodium Potassium Chloride Carbon Dioxide Anion Gap BUN Creatinine Est GFR (CKD-EPI) Glucose Calcium Total Creatine Kinase 32 Troponin I High Sens 44.6 H Blood Type O Positive Antibody Screen Negative Crossmatch ([facility]) See Detail 07/09/23 07/09/23 03:54 06:33 Corrected WBC Uncorrected WBC Count RBC Hgb 7.7 L Hct 22.7 L MCV MCH MCHC RDW Plt Count MPV Neut % (Auto) Lymph % (Auto) Ellis % (Auto) Eos % (Auto) Baso % (Auto) Nucleat RBC Rel Count Neut # (Auto) Lymph # (Auto) Ellis # (Auto) Eos # (Auto) Baso # [...] signed by Krishan Rdz MD> 07/09/[address] [facility] Work Phone: 1(433) 648-998605-07-2024 Procedure [facility]05[facility]06[facility]* Encounter Date Diagnosis Assessment Notes Treatment Notes Treatment Clinical Notes Apr, Generalized anxiety disorder (ICD-10 - F41.1) [facility] Other 01-12-2024 Evaluation note* Encounter Date Diagnosis Assessment Notes Treatment Notes Treatment Clinical Notes Mar, Generalized anxiety disorder (ICD-10 - F41.1) [facility] Other 01-05-2024 Evaluation note* Encounter Date Diagnosis Assessment Notes Treatment Notes Treatment Clinical Notes Mar, Peripheral vascular disease with claudication (ICD-10 - I73.9) [facility] Other 12-14-2023 Evaluation note* Encounter Date Diagnosis Assessment Notes Treatment Notes Treatment Clinical Notes Feb, Generalized anxiety disorder (ICD-10 - F41.1) [facility] Other 12-07-2023 Evaluation note* Encounter Date Diagnosis Assessment Notes Treatment Notes Treatment Clinical Notes Feb, Peripheral vascular disease with claudication (ICD-10 - I73.9) [facility] Other 12-04-2023 Evaluation note* Encounter Date Diagnosis Assessment Notes Treatment Notes Treatment Clinical Notes Feb, Hypothyroidism, unspecified type (ICD-10 - E03.9) [facility] Other 11-15-2023 Evaluation note* Encounter Date Diagnosis Assessment Notes Treatment Notes Treatment Clinical Notes Jan, Generalized anxiety disorder (ICD-10 - F41.1) [facility] Other 11-09-2023 Evaluation note* Encounter Date Diagnosis [...] ARNULFO's health issues. Consider counseling if needed. [facility] Other 10-09-2023 Evaluation note* Encounter Date Diagnosis Assessment Notes Treatment Notes Treatment Clinical Notes Dec, Elevated TSH (ICD-10 - R79.89) [facility] Other 03-23-2023 Evaluation note* Encounter Date Diagnosis [...] meantime she should continue her medical regimen. [facility] Other 03-17-2023 Evaluation note* Encounter Date Diagnosis [...] Pain in left leg (ICD-10 - M79.605) [facility] Other 02-09-2023 Evaluation note* Encounter Date Diagnosis [...] to work on smoking cessation. Information given. [place] [employer] Other Evaluation noteNo assessment information available [facility] Work Phone: Evaluation noteNo InformationNortHoly Redeemer [facility] [employer] Other Evaluation note* Diagnosis Onset Date Resolution Status Anxiety acute PAD (peripheral artery disease) acute Right leg pain acute PAD (peripheral artery disease) acute [facility] Work Phone: Evaluation note* Diagnosis Onset Date Resolution Status Anxiety acute PAD (peripheral artery disease) acute Right leg pain acute PAD (peripheral artery disease) acute PAD (peripheral artery disease) acute [facility] Work Phone: Evaluation note* Diagnosis Onset Date Resolution Status Anxiety acute PAD (peripheral artery disease) acute Right leg pain acute PAD (peripheral artery disease) acute PAD (peripheral artery disease) acute PAD (peripheral artery disease) acute PAD (peripheral artery disease) acute [facility] Work Phone: Evaluation note* Diagnosis Onset Date Resolution Status Anxiety acute PAD (peripheral artery disease) acute Right leg pain acute PAD (peripheral artery disease) acute PAD (peripheral artery disease) acute Anxiety acute PAD (peripheral artery disease) acute Right leg pain acute PAD (peripheral artery disease) acute [facility] Work Phone: Evaluation note* Diagnosis Onset Date Resolution Status PAD (peripheral artery disease) acute PAD (peripheral artery disease) acute Anxiety acute PAD (peripheral artery disease) acute Right leg pain acute PAD (peripheral artery disease) acute Iliac artery occlusion, left acute PAD (peripheral artery disease) acute [facility] Work Phone: Evaluation note* Diagnosis Onset Date Resolution Status PAD (peripheral artery disease) acute Iliac artery occlusion, left acute PAD (peripheral artery disease) acute Anxiety acute Cigarette nicotine dependence without complication acute Right leg pain acute [facility] Work Phone: Evaluation note* Diagnosis Onset Date Resolution Status PAD (peripheral artery disease) acute Iliac artery occlusion, left acute PAD (peripheral artery disease) acute Anxiety acute Cigarette nicotine dependence without complication acute Right leg pain acute PAD (peripheral artery disease) acute [facility] Work Phone: History general Narrative - Reported* Type Description Date Medical History recent peripheral vascular occus ion Medical History Hx of endometriosis Medical History Major depressive disorder Medical History Anxiety disorder Surgical History CHOLECYSTECTOMY Surgical History HYSTERECTOMY Surgical History BYPASS GRAPH Surgical History KNEE SURGERY Surgical History LT ILIAC ANGIOPLASTY & STENT Surgical History LT ILIAC ANGIOPLASTY & STENT [facility] Other History general Narrative - Reported* Type Description Date Medical History recent peripheral vascular occus ion Medical History Hx of endometriosis Medical History Major depressive disorder Medical History Anxiety disorder Surgical History CHOLECYSTECTOMY Surgical History HYSTERECTOMY Surgical History BYPASS GRAPH Surgical History KNEE SURGERY Surgical History LT ILIAC ANGIOPLASTY & STENT Surgical History LT ILIAC ANGIOPLASTY & STENT Hospitalization History SEE SURGICAL HX [facility] Other Chief Complaint and Reason for Visit [...] Care Provider Active Start: June 27, 2023 Krsihan Rdz MD Attending Provider Active Start: June [...] WITH RACHELE IN OFFICEprescription refillRefillAWF/[facility] [place] InformationRefillNo InformationRefillRefillRefillREFILLrefillNo InformationResults/RefillRefillREFILLRefillrefillRepeat labsrefillRefillREFILL3 month Follow upRefillrefillrefillRefillRefillNo Informationrefill INFORMATION SOURCE (unrecogn ized section and content) DATE CREATED AUTHOR 05/23/2022 [facility] DATE CREATED AUTHOR AUTHOR'S ORGANIZ ATION 10/21/2023 [facility] DATE CREATED AUTHOR AUTHOR'S ORGANIZ ATION 11/06/2023 [facility] EPIC FOR RECORDS PERTAINING [...] BE BASED ON THE PRIMARY CLINICAL RECORDS. [employer] provides no warranty or guarantee of the accuracy or completeness of information in this document.
== END 2023-12-18 09:34 | disposition home or self-care (01) ==
LOC: RAD 09:33
PROVIDERS: PCP Family Medicine; Visit Provider Podiatrist Foot & Ankle Surgery
DX: M79.671 Pain in right foot (principal)
CPT/HCPCS: 73630